=== PATIENT | female | born 1995 | race Caucasian/White ===

== ENCOUNTER 2016-10-30 17:28 | Emergency (ER) | payer BC, OTHER ==
[~2016-10-30] VITALS: Ht 157.5 cm; Wt 54.2 kg
[~2016-10-30 17:28] MED LIST: JNLF153028 PO; MAGNTAB10 PO; MULT-506 PO; MYCO180T PO; NRV/10 PO; ONDA4TAB46 PO; PENC1CRE4 TOP; SPT/ PO; TACR1CAP5 PO; TACR5CAP5 PO; TRIA0.1C20 TOP; TRIA1SPR2 NAE; ZTHM250 PO; [UNRECOGNIZED DRUG - CODE] MT
[2016-10-30 17:31] VITALS: Ht 157.5 cm; Wt 54.2 kg
[2016-10-30] MEDS ORDERED: SODIUM CHLORIDE 0.9% 1000ML 1,000 ML IV STA ×2 (18:06)
[2016-10-30] MEDS ORDERED: PROMETHAZINE HCL INJ 25 MG in SODIUM CHLORIDE 0.9% 50ML 50 ML IV STA (18:23)
[2016-10-30] MEDS: SODIUM CHLORIDE 0.9% 1000ML 1,000 ML IV STA ×2 (18:23→19:03)
[2016-10-30 18:35] LABS: BASO % 0.3 %; BASO ABS # 0.03 K/uL (0-0.2); COMPLETE YES; EOS % 0.1 %; HEMATOCRIT 40.5 % (37-47); IG% 0.2 %; LYMPH % 10.2 %; LYMPH ABS # 1.06 K/uL (1.2-3.4); MEAN CELL VOLUME 88.2 fL (80-100); MEAN CORPUSCULAR HEMOGLOBIN 31.4 pg (25-34); MEAN CORPUSCULAR HGB CONC 35.6 g/dl (32-36); MEAN PLATELET VOLUME 11.6 fL (7.4-10.4); MONO % 2.5 %; NEUT % 86.7 %; PLATELET COUNT 255 K/uL (130-400); RED BLOOD COUNT 4.59 M/uL (4.2-5.4); WHITE BLOOD COUNT 10.42 K/uL (4.8-10.8)
[2016-10-30 18:54] LABS: ALT/SGPT 15 U/L (12-78); AST/SGOT 10 U/L (15-37); BLOOD UREA NITROGEN 16 mg/dl (7-18); BUN/CREATININE RATIO 12.2 (10-20); CALCIUM 10.3 mg/dl (8.5-10.1); CARBON DIOXIDE 30 mmol/L (21-32); CHLORIDE 101 mmol/L (98-107); GLUCOSE 149 mg/dl (70-99); POTASSIUM 3.3 mmol/L (3.5-5.1); SODIUM 140 mmol/L (136-145)
[2016-10-30 18:56] LABS: ALKALINE PHOSPHATASE 73 U/L (45-117)
[2016-10-30 18:58] LABS: URINE APPEARANCE TURBID (CLEAR); URINE BILIRUBIN NEG (NEG); URINE COLOR YELLOW; URINE EPITHELIAL CELL AUTO >30 /lpf (0-5); URINE NITRITE NEG (NEG); URINE SPECIFIC GRAVITY 1.013 (1.000-1.030); UROBILINOGEN NEG (NEG)
[2016-10-30 19:07] VITALS: TEMP 37.4
[2016-10-30 19:14] LABS: MANUAL MICROSCOPIC REQUIRED? NO; REVIEW REQ? YES; SULFASALICYLIC ACID POS (NEG)
[2016-10-30 19:20] LABS: ZZUR CULT IF INDIC CLEAN CATCH YES
--- NOTE | 2016-10-30 19:27 | DIAGNOSTIC IMAGING REPORT ---
PA CHEST RADIOGRAPH AND UPRIGHT AND SUPINE AP RADIOGRAPHS OF THE ABDOMEN CLINICAL HISTORY: Vomiting and upper abdominal pain. History of renal transplant. COMPARISON STUDY: Abdominal series and chest radiograph June 10, 2010 and chest radiograph August 14, 2015. FINDINGS: Lung volumes are normal. No pneumothorax or pleural effusion is present. Cardiac size is normal. Mediastinal contours are normal. There is no evidence of pulmonary edema. There is no free air. Moderate distention of the stomach is noted. A single loop of dilated small bowel is shown on one image within the left lower quadrant. There are abdominal surgical clips. IMPRESSION: 1. No free air. 2. Single moderately dilated loop of small bowel shown on one image. This is nonspecific and a partial small bowel obstruction would be difficult to exclude. 3. No acute cardiopulmonary findings. 4. Mild to moderate distention of the stomach. Electronically signed by: Yanick Frazier M.D. 10/30/2016 7:25 PM Dictated Date/Time: 10/30/2016 7:22 PM
[2016-10-30 21:53] LABS: URINE APPEARANCE CLEAR (CLEAR); URINE BILIRUBIN NEG (NEG); URINE COLOR YELLOW; URINE NITRITE NEG (NEG); URINE SPECIFIC GRAVITY 1.001 (1.000-1.030); UROBILINOGEN NEG (NEG); ZZUR CULT IF INDIC CLEAN CATCH NO
[2016-10-30 21:54] LABS: MANUAL MICROSCOPIC REQUIRED? NO; REVIEW REQ? NO
[2016-10-30 23:09] VITALS: BP 111/67; PULSE 64; O2SAT 98
[2016-10-30] MEDS ORDERED: PHENERGAN 25MG HOMEPACK PO ONE (23:30)
--- NOTE | 2016-10-31 00:33 | EMERGENCY ROOM VISIT NOTE ---
History Report prepared by Lisseth: Yane Rawls Under the Supervision of: Dr. Raúl Sales M.D. First contact with patient: 18:05 Chief Complaint: VOMITING Stated Complaint: KIDNEY TRANSPLANT PT, VOMITING, DEHYDRATED Nursing Triage Summary: Patient states she has been vomitting for the last 3 days. Denies diarrhea. Patient has hx of kidney transplant. Patient unable to keep down any food or medications. C/o 6/10 abdominal pain. History of Present Illness The patient is a 21 year old female who presents to the Emergency Room via mother with complaints of worsening vomiting with onset three days ago. She rates her pain as a 5/10. The patient has a history of a kidney transplant. It was performed at [facility] in 2006. [facility] does not know about the patient's current illness. She has tried taking her daily medications, but she notes that she is throwing this up. Today, the patient has thrown up 6-7 times. She last vomited one hour ago.The patient has taken nausea medication, Ondansetron, without much relief. The patient also has central abdominal pain. She notes that the pain increased about six hours ago. She has had several headaches one day ago. Today, she has had some back pain, which she states is normal for her. She states that she has a slight sorethroat, but that this may be due to vomiting. The patient states she feels dehydrated. The patient states that a friend had the stomach bug one week ago. The patient and her mother noticed that the patient's legs were slightly swollen a few days before she started to vomit. Pt denies LOC, fevers, chills, diaphoresis, visual changes, neck pain, chest pain, breathing difficulties, melena, hematochezia, urinary symptoms, numbness, weakness, lymphadenopathy, rash, or other complaints. Source of History: patient Onset: 3 days ago Position: abdomen Symptom Intensity: 5/10 Quality: other (vomiting) Timing: worsening Associated Symptoms: + abdominal pain, + headache, + sorethroat Note: The patient's legs were swollen several days before she started to vomit. Review of Systems See HPI for pertinent positives and negatives. A total of ten systems were reviewed and were otherwise negative. Past Medical & Surgical Medical Problems: (1) Anemia of chronic renal failure (2) H/O amblyopia (3) History of chronic renal insufficiency (4) History of type IV renal tubular acidosis (5) HTN (hypertension) (6) Renal osteodystrophy (7) Secondary hyperparathyroidism (8) Selective deficiency of IgG (9) Short stature Surgical Problems: (1) S/p revision horizontal eye muscle (2) S/P tonsillectomy and adenoidectomy Family History Asthma GRANDMOTHER Diabetes mellitus FH: cancer FH: gallbladder disease FH: heart disease GRANDFATHER Hypertension GRANDFATHER Kidney disease Kidney stones Social History Smoking Status: Never Smoker Alcohol Use: none Drug Use: none Marital Status: single Housing Status: lives with family Occupation Status: [employer] student Current/Historical Medications Scheduled Amlodipine Besylate (Amlodipine Besylate), 10 MG PO DAILY Chlorhexidine Gluconate (Mouth (Peridex Oral Soln), Unknown Dose MT BID Magnesium Oxide (Mg Supplement (Mag-200), 200 MG PO DAILY Multivitamin (Multivitamin), 1 TAB PO DAILY Mycophenolate Sodium (Myfortic), 360 MG PO BID Tacrolimus (Prograf), 3 MG PO BID Tacrolimus (Prograf), 5 MG PO BID Triamcinolone Acetonide (Nasal (Nasacort-Aq Nasal Inh), 2 SPRAYS JUDIE DAILY Trimethoprim/Sulfamethoxazole (Bactrim 400MG/80MG), 1 TAB PO DAILY Scheduled PRN Ondansetron Hcl (Zofran), 4 MG PO Q8 PRN for Nausea Penciclovir (Denavir), 1 APPLN TOP Q2H PRN for cold sores Triamcinolone Acet 0.1% (Aristocort 0.1%), 1 APPLN TOP BID PRN for skin impairment Allergies Coded Allergies: Dust Mite Extract (Unverified Allergy, Mild, ., 10/30/16) Morphine (Unverified Adverse Reaction, Unknown, PSYCHOSIS, 10/30/16) Physical Exam Vital Signs Date Time Temp Pulse Resp B/P Pulse Ox O2 Delivery O2 Flow Rate FiO2 10/30/16 23:09 64 19 111/67 98 Room Air 10/30/16 22:18 95 10/30/16 22:00 94 21 134/75 94 Room Air 10/30/16 21:43 77 17 120/76 96 Room Air 10/30/16 20:00 82 16 140/97 94 Room Air 10/30/16 19:07 37.4 85 21 129/89 97 Room Air 10/30/16 18:19 88 10/30/16 17:31 36.7 90 20 133/95 95 Room Air Physical Exam GENERAL: Awake, alert, well-appearing, in no distress HENT: Normocephalic, atraumatic. Oropharynx unremarkable. EYES: Normal conjunctiva. Sclera non-icteric. NECK: Supple. No nuchal rigidity. FROM. No JVD. RESPIRATORY: Clear to auscultation. CARDIAC: Regular rate, normal rhythm. Extremities warm and well perfused. Pulses equal. ABDOMEN: Soft, non-distended. Mild epigastric discomfort to palpation. No rebound or guarding. No masses. RECTAL: Deferred. MUSCULOSKELETAL: Chest examination reveals no tenderness. The back is symmetrical on inspection without obvious abnormality. There is no CVA tenderness to palpation. No joint edema. LOWER EXTREMITIES: Calves are equal size bilaterally and non-tender. No edema. No discoloration. NEURO: Normal sensorium. No sensory or motor deficits noted. SKIN: No rash or jaundice noted. Medical Decision & Procedures ER Provider Diagnostic Interpretation: X-ray: Per my interpretation, radiologist review. PA CHEST RADIOGRAPH AND UPRIGHT AND SUPINE AP RADIOGRAPHS OF THE ABDOMEN CLINICAL HISTORY: Vomiting and upper abdominal pain. History of renal transplant. COMPARISON STUDY: Abdominal series and chest radiograph June 10, 2010 and chest radiograph August 14, 2015. FINDINGS: Lung volumes are normal. No pneumothorax or pleural effusion is present. Cardiac size is normal. Mediastinal contours are normal. There is no evidence of pulmonary edema. There is no free air. Moderate distention of the stomach is noted. A single loop of dilated small bowel is shown on one image within the left lower quadrant. There are abdominal surgical clips. IMPRESSION: 1. No free air. 2. Single moderately dilated loop of small bowel shown on one image. This is nonspecific and a partial small bowel obstruction would be difficult to exclude. 3. No acute cardiopulmonary findings. 4. Mild to moderate distention of the stomach. Electronically signed by: Yanick Frazier M.D. 10/30/2016 7:25 PM Dictated Date/Time: 10/30/2016 7:22 PM Laboratory Results 10/30/16 17:56 Red Blood Count 4.59, Mean Corpuscular Volume 88.2, Mean Corpuscular Hemoglobin 31.4, Mean Corpuscular Hemoglobin Concent 35.6, Mean Platelet Volume 11.6, Neutrophils (%) (Auto) 86.7, Lymphocytes (%) (Auto) 10.2, Monocytes (%) (Auto) 2.5, Eosinophils (%) (Auto) 0.1, Basophils (%) (Auto) 0.3, Neutrophils # (Auto) 9.04, Lymphocytes # (Auto) 1.06, Monocytes # (Auto) 0.26, Eosinophils # (Auto) 0.01, Basophils # (Auto) 0.03 10/30/16 17:56 Test 10/30/16 17:56 10/30/16 18:20 White Blood Count 10.42 K/uL (4.8-10.8) Red Blood Count 4.59 M/uL (4.2-5.4) Hemoglobin 14.4 g/dL (12.0-16.0) Hematocrit 40.5 % (37-47) Mean Corpuscular Volume 88.2 fL (80-100) Mean Corpuscular Hemoglobin 31.4 pg (25-34) Mean Corpuscular Hemoglobin Concent 35.6 g/dl (32-36) Platelet Count 255 K/uL (130-400) Mean Platelet Volume 11.6 fL (7.4-10.4) Neutrophils (%) (Auto) 86.7 % Lymphocytes (%) (Auto) 10.2 % Monocytes (%) (Auto) 2.5 % Eosinophils (%) (Auto) 0.1 % Basophils (%) (Auto) 0.3 % Neutrophils # (Auto) 9.04 K/uL (1.4-6.5) Lymphocytes # (Auto) 1.06 K/uL (1.2-3.4) Monocytes # (Auto) 0.26 K/uL (0.11-0.59) Eosinophils # (Auto) 0.01 K/uL (0-0.5) Basophils # (Auto) 0.03 K/uL (0-0.2) RDW Standard Deviation 39.6 fL (36.4-46.3) RDW Coefficient of Variation 12.4 % (11.5-14.5) Immature Granulocyte % (Auto) 0.2 % Immature Granulocyte # (Auto) 0.02 K/uL (0.00-0.02) Anion Gap 9.0 mmol/L (3-11) Est Creatinine Clear Calc Drug Dose 54.6 ml/min Estimated GFR () 68.4 Estimated GFR (Non- 59.0 BUN/Creatinine Ratio 12.2 (10-20) Calcium Level 10.3 mg/dl (8.5-10.1) Total Bilirubin 0.5 mg/dl (0.2-1) Direct Bilirubin < 0.1 mg/dl (0-0.2) Aspartate Amino Transf (AST/SGOT) 10 U/L (15-37) Alanine Aminotransferase (ALT/SGPT) 15 U/L (12-78) Alkaline Phosphatase 73 U/L (45-117) Total Protein 7.7 gm/dl (6.4-8.2) Albumin 4.5 gm/dl (3.4-5.0) Lipase 100 U/L (73-393) Urine Color YELLOW Urine Appearance TURBID (CLEAR) Urine pH 8.0 (4.5-7.5) Urine Specific [place] 1.013 (1.000-1.030) Urine Protein 2+ (NEG) Urine Glucose (UA) NEG (NEG) Urine Ketones NEG (NEG) Urine Occult Blood TRACE (NEG) Urine Nitrite NEG (NEG) Urine Bilirubin NEG (NEG) Urine Urobilinogen NEG (NEG) Urine Leukocyte Esterase TRACE (NEG) Urine WBC (Auto) 5-10 /hpf (0-5) Urine RBC (Auto) 0-4 /hpf (0-4) Urine Hyaline Casts (Auto) 5-10 /lpf (0-5) Urine Epithelial Cells (Auto) >30 /lpf (0-5) Urine Bacteria (Auto) 2+ (NEG) Urine Crystals (NONE PRSENT) Urine Test NEG (NEG) Laboratory results reviewed by me Medications Administered Medications (Trade) Dose Ordered Sig/Victor M Route Start Time Stop Time Status Last Admin Dose Admin Sodium Chloride 1,000 ml @ 125 mls/hr Q8H STAT IV 10/30/16 18:06 10/30/16 23:38 DC 10/30/16 20:59 125 MLS/HR Sodium Chloride 1,000 ml @ 999 mls/hr Q1H1M STAT IV 10/30/16 18:06 10/30/16 19:06 DC 10/30/16 18:06 999 MLS/HR Sodium Chloride 1,000 ml @ 999 mls/hr Q1H1M STAT IV 10/30/16 18:23 10/30/16 19:23 DC 10/30/16 19:03 999 MLS/HR Promethazine HCl/ Sodium Chloride (Phenergan Inj/ Nss 50ml) 51 ml @ 204 mls/hr NOW STAT IV 10/30/16 18:23 10/30/16 18:37 DC 10/30/16 19:02 204 MLS/HR Promethazine HCl (Phenergan 25MG Home Pack) 1 homepack UD ONCE PO 10/30/16 23:30 10/30/16 23:31 DC 10/30/16 23:25 1 [facility] ED Course 1806: Sodium Chloride 1000 ml @ 999 mls/hr IV, Sodium Chloride 1000 ml @ 125 mls /hr IV 1816: The patient was evaluated in room A2. A complete history and physical exam was performed. 1822: Promethazine HCl 25 mg/ Sodium Chloride 51 ml @ 204 mls/ hr IV, Sodium Chloride 1000 ml @ 999 mls/hr IV 0: I reevaluated the patient; she is feeling better and will now try to keep some liquids down. 2116: I reevaluated the patient; she is feeling much better. Her repeat abdominal exam was better and she tolerated fluids well. 3: I reevaluated the patient; she is feeling much better. She tolerated liquids and gram crackers. Her repeat abdominal exam was benign. Discussed results and discharge instructions with the patient and her mother. They verbalized understanding and agreement. The patient is ready for discharge. 2330: Phenergan 25 mg 1 homepack PO Medical Decision Triage Nursing notes reviewed. The patient's presentation and history were concerning for vomiting and renal transplant. Etiologies such as gastroenteritis, food borne illness, infections, obstruction , pancreatitis, appendicitis, diverticulitis, inflammatory bowel disease, GI bleed, biliary pathology, toxicologic as well as others were entertained. The patient was evaluated. She had some mild abdominal discomfort but no rebound or guarding. She had IV fluids administered. She was given IV Phenergan and she has tried Zofran without results. The patient was reassessed and was feeling much better. She had an unremarkable CBC, chemistry panel, LFTs and lipase. test was negative. Urinalysis initially was somewhat concerning however this was not a clean catch specimen. The patient was instructed on a proper specimen and this was repeated. This was without signs of infection. The patient received saline hydration. She was feeling much better and repeat abdominal examination was benign. X-ray showed a questionable dilated loop of bowel however given her history of contact with a person having gastroenteritis type symptoms and her 3 days of vomiting with resolution of pain here obstruction does not seem to be an issue. The patient is not distended. She does not have any remaining tenderness. She did not receive any pain medication to cover this up. She was tried on oral fluids and crackers. She did very well with this. She was reassessed and was doing great. I discussed conservative management. The patient will come back to emergency department if she has any issues. She will follow-up with transplant first thing this week. I gave my usual and customary discussion regarding this issue. By the evaluation outlined above other emergent etiologies such as those listed in the differential, as well as others, were deemed relatively unlikely. The patient and mother were formed about the findings as listed above. All questions were answered and they were pleased with the treatment. Return instructions were outlined and the patient was discharged in stable condition. The patient was referred to her primary team for follow-up Tuesday for a recheck of the current condition. The chart was completed utilizing [employer] Speech voice recognition software. Grammatical errors, random word insertions, pronoun errors, and incomplete sentences are an occasional consequence of this system due to software limitations, ambient noise, and hardware issues. Any formal questions or concerns about the content, text, or information contained within the body of this dictation should be directly addressed to the physician for clarification. Impression Primary Impression: Vomiting Additional Impression: Status post kidney transplant Scribe Attestation The scribe's documentation has been prepared under my direction and personally reviewed by me in its entirety. I confirm that the note above accurately reflects all work, treatment, procedures, and medical decision making performed by me. Departure Information Dispostion Home / Self-Care Referrals Gio Valle M.D. (PCP) Forms HOME CARE DOCUMENTATION FORM, IMPORTANT VISIT INFORMATION Patient Instructions My [facility] Additional Instructions VOMITING INSTRUCTIONS: DO NOT drive, drink alcohol, operate machinery, or perform dangerous activities today. You were given medications in the ER that can affect your ability to safely function or operate a vehicle. Phenergan(promethazine) tablets 25mg: Take one every six hours as needed for nausea. Avoid alcohol, operating machinery or dangerous equipment, working on ladders or roofs, DRIVING, or situations where being under the influence may be dangerous. Acetaminophen(Tylenol) may be used for fever or pain. Use 1000mg every six hours as needed. Avoid using more than 4000mg in a 24 hour period. Rest and drink plenty of fluids as tolerated. Slow sips of water or sports drinks are recommended instead of large amounts all at once. Continue current medications. Once your stomach is settled start with a clear liquid diet (jello, soup broth, etc.) and then advance as tolerated. You should avoid full, heavy meals for about 24 hrs from the time your symptoms resolved. Return to the ER for persistent vomiting, fevers, abdominal pain, chest pains, difficulty breathing, black or bloody stools, worsening of your condition, or as needed. Follow up with your primary physician in 2-3 days for a recheck of your current condition Problem Qualifiers
== END 2016-10-30 23:25 | disposition home or self-care (01) ==
LOC: C.EDB 17:30 → C.EDA 23:25
DX: R11.2 Nausea with vomiting, unspecified (principal); Z94.0 Kidney transplant status; D63.1 Anemia in chronic kidney disease; I12.9 Hypertensive chronic kidney disease with stage 1 through stage 4 chronic kidney disease, or unspecified chronic kidney disease; N18.9 Chronic kidney disease, unspecified; N25.0 Renal osteodystrophy; N25.81 Secondary hyperparathyroidism of renal origin; D80.3 Selective deficiency of immunoglobulin G [IgG] subclasses; Z82.5 Family history of asthma and other chronic lower respiratory diseases; Z83.3 Family history of diabetes mellitus; Z82.49 Family history of ischemic heart disease and other diseases of the circulatory system; Z79.899 Other long term (current) drug therapy

== ENCOUNTER 2017-11-06 17:59 | Inpatient (IN) | payer OTHER ==
[~2017-11-06] VITALS: Ht 157.5 cm; Wt 52.4 kg
[~2017-11-06 17:59] MED LIST changes: -JNLF153028 PO; +PENC1CRE33 TOP; -PENC1CRE4 TOP; -ZTHM250 PO
[2017-11-06] MEDS ORDERED: TRMCR130WC TOP (18:48)
[2017-11-06] MEDS ORDERED: TACR5CAP PO (18:48)
[2017-11-06] MEDS ORDERED: TACR1CAP PO (18:48)
[2017-11-06] MEDS ORDERED: TRIA1SPR4 NAE (18:48)
[2017-11-06] MEDS ORDERED: BCPILLS PO (18:49)
--- NOTE | 2017-11-06 18:50 | EMERGENCY ROOM VISIT NOTE ---
History Report prepared by Lisseth: Efrain Francisco Under the Supervision of: Pamela PabloO. First contact with patient: 18:17 Chief Complaint: FLU LIKE SX Stated Complaint: FEVER,CHILLS,COUGH,ACHE, TRANSPLANT PATIENT History of Present Illness The patient is a 22 year old female who presents to the Emergency Room with complaints of worsening flu symptoms for the past 3 days. She states that she had a productive cough for three days, and then yesterday she had body aches, fevers up to 102.7, chills, headaches, sore throat, nausea, and she had some abdominal pain last night. The patient states that she was around some sick contacts this week with the flu and RSV. The patient took Tylenol this morning with no relief. The patient denies any vomiting, diarrhea, urinary difficulties , ear pain, and any abnormal rash, though she had hives yesterday from stress which is normal. The patient states that she got the flu shot this year. The patient is a kidney transplant patient in 2006, and she is currently on Prograf and has had no complications recently. Source of History: patient Onset: three days ago Position: other (global) Quality: other (flu like symptoms) Timing: worsening Associated Symptoms: + fevers, + chills, + headache, + sorethroat, + cough, + nausea, + abdominal pain, No vomiting, No diarrhea, No rash Note: Associated symptoms: Body aches Review of Systems See HPI for pertinent positives & negatives. A total of 10 systems reviewed and were otherwise negative. Past Medical & Surgical Medical Problems: (1) Abnormal blood electrolyte level (2) Anemia of chronic renal failure (3) H/O amblyopia (4) History of chronic renal insufficiency (5) History of type IV renal tubular acidosis (6) HTN (hypertension) (7) Renal osteodystrophy (8) Secondary hyperparathyroidism (9) Selective deficiency of IgG (10) Short stature Surgical Problems: (1) Kidney transplant status (2) S/p revision horizontal eye muscle (3) S/P tonsillectomy and adenoidectomy Family History Asthma GRANDMOTHER Diabetes mellitus FH: cancer FH: gallbladder disease FH: heart disease GRANDFATHER Hypertension GRANDFATHER Kidney disease Kidney stones Social History Smoking Status: Never Smoker Alcohol Use: none Drug Use: none Marital Status: single Housing Status: lives with family Occupation Status: [employer] student Current/Historical Medications Scheduled Amlodipine Besylate (Amlodipine Besylate), 10 MG PO DAILY Control Pills ( Control Pills), 1 TAB PO DAILY Magnesium Oxide (Mg Supplement (Mag-200), 200 MG PO DAILY Multivitamin (Multivitamin), 1 TAB PO DAILY Mycophenolate Sodium (Myfortic), 360 MG PO BID Oseltamivir Phosphate (Tamiflu), 75 MG PO BID Tacrolimus (Prograf), 5 MG PO BID Tacrolimus (Prograf), 3 MG PO BID Triamcinolone Acetonide (Nasal (Nasacort Allergy 24Hr), 2 SPRAYS JUDIE DAILY Trimethoprim/Sulfamethoxazole (Bactrim 400MG/80MG), 1 TAB PO DAILY Scheduled PRN Chlorhexidine Gluconate (Mouth (Peridex Oral Soln), Unknown Dose MT BID PRN for DIRECTED Guaifenesin (Organ-I Nr), 200 MG PO Q8 PRN for cough Ondansetron Hcl (Zofran), 4 MG PO Q8 PRN for Nausea Penciclovir (Denavir), 1 APPLN TOP Q2H PRN for cold sores Triamcinolone Acet (Aristocort 0.1%), 1 APPLN TOP BID PRN for SKIN IMPAIRMENT Allergies Coded Allergies: Dust Mite Extract (Verified Allergy, Mild, ., 11/06/17) Morphine (Verified Adverse Reaction, Unknown, PSYCHOSIS, 11/06/17) Physical Exam Vital Signs Date Time Temp Pulse Resp B/P (MAP) Pulse Ox O2 Delivery O2 Flow Rate FiO2 11/06/17 23:46 94 18 125/79 95 Room Air 11/06/17 22:08 37.5 93 18 134/91 95 Room Air 11/06/17 20:12 38.8 127 18 142/99 97 Room Air 11/06/17 18:07 39.3 136 18 142/95 99 Room Air Physical Exam GENERAL: alert, ill-appearing, well nourished, no distress, non-toxic EYE EXAM: normal conjunctiva, PERRL and EOM's grossly intact OROPHARYNX: no exudate, no erythema, lips, buccal mucosa, and tongue normal and mucous membranes are dry NECK: supple, no nuchal rigidity, no adenopathy, non-tender, FROM LUNGS: Clear to auscultation. Normal chest wall mechanics, no w/r/r HEART: no murmurs, S1 normal and S2 normal ABDOMEN: abdomen soft, non-tender, normo-active bowel sounds, no masses, no rebound or guarding. BACK: Back is symmetrical on inspection and there is no deformity, no midline tenderness, no CVA tenderness. SKIN: no rashes and no bruising UPPER EXTREMITIES: upper extremities are grossly normal. FROM, nml pulses. LOWER EXTREMITIES: No pitting edema. FROM, nml pulses. NEURO EXAM: Normal sensorium, cranial nerves II-XII grossly intact, normal speech, no gross weakness of arms, no gross weakness of legs. Gross sensation intact. Medical Decision & Procedures ER Provider Diagnostic Interpretation: Radiology results have been interpreted by the radiologist and reviewed by me. CHEST ONE VIEW PORTABLE HISTORY: cough, fever COMPARISON: Chest 10/30/2016. FINDINGS: The lungs are clear. Cardiac silhouette is normal in size. No pleural effusions. No pneumothorax. IMPRESSION: No acute process. Electronically signed by: Davin Lorenzo M.D. 11/06/2017 7:17 PM Dictated Date/Time: 11/06/2017 7:15 PM Laboratory Results Test 11/06/17 18:57 11/06/17 19:15 11/06/17 19:29 11/06/17 20:55 Influenza Type A Antigen Neg for Influ A (NEG) Influenza Type B Antigen Neg for Influ B (NEG) Immature Granulocyte % (Auto) 0.2 % White Blood Count 9.83 K/uL (4.8-10.8) Red Blood Count 4.33 M/uL (4.2-5.4) Hemoglobin 13.7 g/dL (12.0-16.0) Hematocrit 39.3 % (37-47) Mean Corpuscular Volume 90.8 fL (80-100) Mean Corpuscular Hemoglobin 31.6 pg (25-34) Mean Corpuscular Hemoglobin Concent 34.9 g/dl (32-36) Platelet Count 240 K/uL (130-400) Mean Platelet Volume 10.6 fL (7.4-10.4) Neutrophils (%) (Auto) 84.9 % Lymphocytes (%) (Auto) 8.0 % Monocytes (%) (Auto) 6.5 % Eosinophils (%) (Auto) 0.1 % Basophils (%) (Auto) 0.3 % Neutrophils # (Auto) 8.34 K/uL (1.4-6.5) Lymphocytes # (Auto) 0.79 K/uL (1.2-3.4) Monocytes # (Auto) 0.64 K/uL (0.11-0.59) Eosinophils # (Auto) 0.01 K/uL (0-0.5) Basophils # (Auto) 0.03 K/uL (0-0.2) Immature Granulocyte # (Auto) 0.02 K/uL (0.00-0.02) Total Bilirubin 0.5 mg/dl (0.2-1) Aspartate Amino Transf (AST/SGOT) 12 U/L (15-37) Alanine Aminotransferase (ALT/SGPT) 18 U/L (12-78) Alkaline Phosphatase 65 U/L (45-117) Total Protein 7.8 gm/dl (6.4-8.2) Globulin 3.6 gm/dl (2.5-4.0) Albumin/Globulin Ratio 1.2 (0.9-2) Human Chorionic Gonadotropin, Qual NEG (NEG) Bedside Lactic Acid Venous 1.96 mmol/L (0.90-1.70) Urine Color YELLOW Urine Appearance CLEAR (CLEAR) Urine pH 8.0 (4.5-7.5) Urine Specific Counce 1.008 (1.000-1.030) Urine Protein NEG (NEG) Urine Glucose (UA) NEG (NEG) Urine Ketones NEG (NEG) Urine Occult Blood 3+ (NEG) Urine Nitrite NEG (NEG) Urine Bilirubin NEG (NEG) Urine Urobilinogen NEG (NEG) Urine Leukocyte Esterase TRACE (NEG) Urine WBC (Auto) 1-5 /hpf (0-5) Urine RBC (Auto) >30 /hpf (0-4) Urine Hyaline Casts (Auto) 1-5 /lpf (0-5) Urine Epithelial Cells (Auto) 20-30 /lpf (0-5) Urine Bacteria (Auto) NEG (NEG) Laboratory results per my review. Medications Administered Medications (Trade) Dose Ordered Sig/Victor M Route Start Time Stop Time Status Last Admin Dose Admin Sodium Chloride 1,000 ml @ 999 mls/hr Q1H1M STAT IV 11/06/17 18:51 11/06/17 19:51 DC 11/06/17 19:17 999 MLS/HR Acetaminophen (Tylenol Tab) 1,000 mg NOW STAT PO 11/06/17 18:51 11/06/17 18:53 DC 11/06/17 19:17 1,000 MG Ondansetron HCl (Zofran Inj) 4 mg NOW STAT IV 11/06/17 18:51 11/06/17 18:53 DC 11/06/17 19:17 4 MG Sodium Chloride 1,000 ml @ 999 mls/hr Q1H1M STAT IV 11/06/17 21:20 11/06/17 22:20 DC 11/06/17 21:54 999 MLS/HR Potassium Phosphate 15 mmol/ Sodium Chloride 255 ml @ 88 mls/hr NOW STAT IV 11/06/17 21:32 11/07/17 00:25 DC 11/06/17 22:45 88 MLS/HR Magnesium Sulfate 2 gm/Dextrose 104 ml @ 104 mls/hr NOW STAT IV 11/06/17 21:34 11/06/17 22:33 DC 11/06/17 21:53 104 MLS/HR ECG Indication: other (flu like symptoms) Rate (beats per minute): 123 Rhythm: sinus tachycardia Findings: T-wave inversion (isolated in V3), no acute ischemic change, other ( Baseline arifact inferiorly) Change: EKG: Patient's electrocardiogram per my interpretation. ED Course 1816: The patient was evaluated in room C7. A complete history and physical exam was performed. 1850: Zofran 4mg IV, Tylenol Tab 1000mg PO 2118: There has been no return call from the kidney specialist yet after two attempts. I discussed electrolyte replacement with the pharmacist. 2119: Sodium Chloride 1000 ml @ 999 mls/hr IV 2126: I discussed the patients case with Dr. Randall Nephrology, and she agrees with the plan for electrolyte replacement. If the patient has a persistent fever and tachycardia, or is unable to tolerate po then she recommends observing the patient and they will consult. She thinks that it is unlikely to be an opportunistic infection. She is going to review the chart at home, and it she has any additional recommendations, then she will call back. 2131: Potassium Phosphate 15 mmol/ Sodium Chloride 255ml @ 88mls/hr IV 2133: Magnesium Sulfate 2gm/ Dextrose 104ml @ 104mls/hr IV 2140: I reevaluated the patient, and I updated her on the treatment plan. 2316: Pt still ill appearing. Receiving electrolyte replacements. Only keeping down sips of po. 2333: Discussed with Dr. White for admission. Medical Decision Differential diagnosis: Etiologies such as viral syndrome, otitis, pharyngitis, pneumonia, influenza, meningitis, urinary tract infection, sepsis, bacteremia, as well as others were entertained. Pt mildly ill appearing here, however slightly improved with IVF. Fever and tachycardia improved. Tachycardia likely from fever and dehydration. Given hx of transplant and persistent sx, need for continued electrolyte replacement and monitoring of renal functioning, discussed with hospitalist for additional evaluation and treatment. Doubt bacteremia/sepsis. Doubt acute renal failure or transplant rejection. Medication Reconcilliation Current Medication List: was personally reviewed by me Consults Time Called: 2038 Consulting Physician: Dr. Randall - Nephrology Returned Call: [phone] I discussed the patients case with Dr. Randall Nephrology, and she agrees with the plan for electrolyte replacement. If the patient has a persistent fever and tachycardia, then she will observe the patient as a consult. She thinks that it is unlikely to be an opportunistic infection. She is going to review the chart at home, and it she has any additional recommendations, then she will call back. Impression Primary Impression: Influenza-like symptoms Additional Impressions: Hypokalemia Hypomagnesemia Hypophosphatemia Dehydration Status post kidney transplant Scribe Attestation The scribe's documentation has been prepared under my direction and personally reviewed by me in its entirety. I confirm that the note above accurately reflects all work, treatment, procedures, and medical decision making performed by me. Departure Information Prescriptions Guaifenesin (Organ-I Nr) 200 Mg Tab 200 MG PO Q8 Y for cough for 5 Days, #15 TAB Prov: Niko Blanchard M.D. 11/09/17 Oseltamivir Phosphate (Tamiflu) 75 Mg Cap 75 MG PO BID, #5 CAP Prov: Niko Blanchard M.D. 11/09/17 Referrals Gio Valle M.D. (PCP) Patient Instructions My [facility] Problem Qualifiers
[2017-11-06] MEDS ORDERED: ONDANSETRON INJ 2 MG/ML 2 ML VIAL IV STA (18:51)
[2017-11-06] MEDS ORDERED: SODIUM CHLORIDE 0.9% 1000ML 1,000 ML IV STA ×2 (18:51→21:20)
[2017-11-06] MEDS ORDERED: ACETAMINOPHEN 500 MG TAB PO STA (18:51)
--- NOTE | 2017-11-06 19:18 | DIAGNOSTIC IMAGING REPORT ---
CHEST ONE VIEW PORTABLE HISTORY: cough, fever COMPARISON: Chest 10/30/2016. FINDINGS: The lungs are clear. Cardiac silhouette is normal in size. No pleural effusions. No pneumothorax. IMPRESSION: No acute process. Electronically signed by: Davin Lorenzo M.D. 11/06/2017 7:17 PM Dictated Date/Time: 11/06/2017 7:15 PM
[2017-11-06 19:40] LABS: BASO % 0.3 %; BASO ABS # 0.03 K/uL (0-0.2); EOS % 0.1 %; EOS ABS # 0.01 K/uL (0-0.5); HEMATOCRIT 39.3 % (37-47); HEMOGLOBIN 13.7 g/dL (12.0-16.0); IG# 0.02 K/uL (0.00-0.02); LYMPH ABS # 0.79 K/uL (1.2-3.4); MEAN CELL VOLUME 90.8 fL (80-100); MEAN CORPUSCULAR HEMOGLOBIN 31.6 pg (25-34); MEAN CORPUSCULAR HGB CONC 34.9 g/dl (32-36); MEAN PLATELET VOLUME 10.6 fL (7.4-10.4); MONO % 6.5 %; MONO ABS # 0.64 K/uL (0.11-0.59); NEUT % 84.9 %; NEUT ABS # 8.34 K/uL (1.4-6.5); PLATELET COUNT 240 K/uL (130-400); RED CELL DISTRIBUTION WIDTH CV 13.2 % (11.5-14.5); RED CELL DISTRIBUTION WIDTH SD 43.6 fL (36.4-46.3); WHITE BLOOD COUNT 9.83 K/uL (4.8-10.8)
[2017-11-06 19:54] LABS: ALBUMIN 4.2 gm/dl (3.4-5.0); CALCIUM 9.3 mg/dl (8.5-10.1); CREATININE 1.24 mg/dl (0.60-1.20); POTASSIUM 3.1 mmol/L (3.5-5.1)
[2017-11-06 20:09] LABS: PHOSPHORUS 1.2 mg/dl (2.5-4.9); TOTAL PROTEIN 7.8 gm/dl (6.4-8.2)
[2017-11-06 20:22] LABS: INFLUENZA B ANTIGEN Neg for Influ B (NEG)
[2017-11-06] MEDS ORDERED: POTASSIUM PHOS 3 MMOL/1 ML INFUSION IV STA (21:20)
[2017-11-06] MEDS ORDERED: MAGNESIUM SULFATE 1GM / D5W 2 GM in PREMIXED IN D5W 100 ML IV STA (21:20)
[2017-11-06] MEDS ORDERED: POTASSIUM PHOSPHATE INJ 15 MMOL in SODIUM CHLORIDE 0.9% 250ML 250 ML IV STA (21:32)
[2017-11-06] MEDS ORDERED: MAG SULFATE IV STA (21:34)
[2017-11-06] MEDS ORDERED: DEXTROSE 5% IV STA (21:34)
[2017-11-07] VITALS (8 sets, daily range): BP systolic 125–217; BP diastolic 77–98; PULSE 62–109; TEMP 36.7–37.5; O2SAT 92–99; Ht 157.5 cm; Wt 52.4 kg
[2017-11-07] MEDS ORDERED: ONDANSETRON INJ 2 MG/ML 2 ML VIAL IV PRN
[2017-11-07] MEDS ORDERED: TRIAMCINOLONE ACET 0.1% CR 15 GM TUBE EXT PRN (00:15)
[2017-11-07] MEDS ORDERED: ONDANSETRON 4 MG TAB PO PRN (00:15)
[2017-11-07 06:39] LABS: HEMATOCRIT 37.8 % (37-47); HEMOGLOBIN 13.3 g/dL (12.0-16.0); MEAN CELL VOLUME 90.6 fL (80-100); MEAN CORPUSCULAR HEMOGLOBIN 31.9 pg (25-34); MEAN CORPUSCULAR HGB CONC 35.2 g/dl (32-36); MEAN PLATELET VOLUME 10.5 fL (7.4-10.4); PLATELET COUNT 197 K/uL (130-400); RED CELL DISTRIBUTION WIDTH CV 13.3 % (11.5-14.5); RED CELL DISTRIBUTION WIDTH SD 44.2 fL (36.4-46.3); WHITE BLOOD COUNT 5.78 K/uL (4.8-10.8)
[2017-11-07 07:15] LABS: CALCIUM 8.5 mg/dl (8.5-10.1); CREATININE 0.81 mg/dl (0.60-1.20); PHOSPHORUS 2.6 mg/dl (2.5-4.9); POTASSIUM 2.9 mmol/L (3.5-5.1)
[2017-11-07] MEDS: SULFAMETHOXAZOLE/TRIMETHOPRIM 400/80MG TAB PO SCH (08:02)
[2017-11-07] MEDS: MULTIVITAMIN TAB PO SCH (08:02)
[2017-11-07] MEDS: AMLODIPINE BESYLATE 5 MG TAB PO SCH (08:02)
[2017-11-07] MEDS: TACROLIMUS 1 MG CAP PO SCH ×2 (08:02→21:28)
[2017-11-07] MEDS: BENZONATATE 100MG CAP PO SCH ×3 (08:03→21:28)
[2017-11-07] MEDS: MYCOPHENOLATE SODIUM 180 MG TAB PO SCH ×2 (08:03→21:28)
[2017-11-07] MEDS: MAGNESIUM OXIDE 400 MG TAB PO SCH (08:03)
[2017-11-07] MEDS: TRIAMCINOLONE ACET NASAL SPRAY 10.8ML BTL NAE SCH (08:04)
[2017-11-07] MEDS: HEPARIN SOD 5000 UNIT/0.5 ML CARP SQ SCH ×3 (08:06→21:37)
--- NOTE | 2017-11-07 08:06 | HISTORY & PHYSICAL EXAMINATION ---
DATE OF ADMISSION: 11/06/2017 PRIMARY CARE PHYSICIAN: Dr. Valle. CHIEF COMPLAINT: Flu-like symptoms for the last 3 days with generalized weakness and nausea and fever. HISTORY OF PRESENT COMPLAINT: She is a 22-year-old female with significant past medical history of chronic renal insufficiency, status post living-related donor renal transplant on the right side, history of headache, amblyopia, anorexia, renal osteodystrophy, hyperparathyroidism, type 4 renal tubular acidosis, history of selective immunoglobulin deficiency and hypertension, apparently has been complaining of flu-like symptoms with cough, runny nose, fever, chills for the last 3 days. The condition worsened as of yesterday with nausea but no vomiting and/or diarrhea. She was feeling generally very weak and lethargic and dizzy, that is the reason she was brought into the Emergency Room for further evaluation. Does not have any increasing shortness of breath, does not have any problem with urine, does not have any swelling of the legs and does not have any weakness involving any side in particular. In the Emergency Room, she looked flushed and febrile, 39.3 degrees Fahrenheit, hemodynamically stable otherwise, and her electrolytes came back fairly abnormal. From that point, she was advised for admission to the hospital. Her flu tests were negative. PAST MEDICAL HISTORY: Significant for chronic renal insufficiency, history of living-related donor renal transplant on the right, history of chronic headache, amblyopia, anorexia, slow transit constipation, nephrolithiasis, renal osteodystrophy, hyperparathyroidism, type 4 renal tubular acidosis, selected immunoglobulin deficiency, allergic rhinitis and hypertension. PAST SURGICAL HISTORY: Significant for right renal transplant, tonsillectomy as a child and revised horizontal eye muscle surgery. FAMILY HISTORY: Maternal grandmother had asthma and paternal grandfather had ischemic heart disease. Nothing about her dad. SOCIAL HISTORY: She is alone, she does not have any children. She lives with her mom. She does not drink and does not smoke and she has been reasonably ambulant. ALLERGIES: SHE IS ALLERGIC TO DUST AND ALSO MORPHINE CAUSES PSYCHOSIS. MEDICATIONS: She has been on multivitamin tablet 1 tablet daily, Zofran 4 mg q. 8 hourly as needed, Prograf 3 mg b.i.d., Prograf 5 mg p.o. b.i.d., Aristocort cream as directed, Nasacort 2 sprays each nostril daily, Bactrim 1 tablet daily, amlodipine 10 mg daily, control pill as directed, magnesium oxide 200 mg daily, Myfortic 180-mg tablet 360 mg twice daily and Denavir 1 application q. 2 hours for cold sores. REVIEW OF SYSTEMS: Other system review unremarkable except those mentioned in history of present complaint. PHYSICAL EXAMINATION: GENERAL: On examination in the Emergency Room, she was having some aches and pains and she looked flushed. VITAL SIGNS: Temperature 39.3, pulse was 94, blood pressure 125/79, saturation 95% on room air. HEENT: Unremarkable. NECK: Supple. No JVD, no bruit. CHEST: Clear to auscultation bilaterally. HEART: S1, S2, regular, no murmur. ABDOMEN: Soft, benign, nontender, no organomegaly. Bowel sounds present. EXTREMITIES: Negative for any edema. MUSCULOSKELETAL: Did not show any acute arthritis involving any joint. CENTRAL NERVOUS SYSTEM: Alert, awake, oriented x3. No focal sensory and/or motor deficit appreciated. LABORATORY DATA: Noted today white count was 9.83, H&H 13.7/39.3, platelet was 240. Sodium 136, potassium 3.1, chloride 102, carbon dioxide 26, BUN 10, creatinine 1.24, random glucose 93. Lactic acid was 1.96. Phosphorus 1.2, magnesium 1.5. LFTs unremarkable. Beta HCG negative. UA examination unremarkable. Influenza A and B negative. Chest x-ray reported as no acute process. EKG was in sinus rhythm, rate of 123 per minute and minor nonspecific ST-T wave changes. IMPRESSION AND PLAN: 1. Electrolyte abnormalities with history of type 4 renal tubular acidosis. She will be admitted to telemetry unit. Nephrology was consulted, and replacement of magnesium, phosphorus and potassium has been started. We will monitor electrolytes while in the hospital. 2. Flu-like symptoms have been going on for the last 3 days. Flu has been negative. She will get Tylenol for fever and fluid replacement for dehydration. 3. Chronic renal impairment secondary to status post renal transplant. Her creatinine has not been worse during this admission. Nephrology consultation will be taken. We will continue with her anti-rejection medications. 4. Hypertension. Blood pressure seems to be controlled right now. Continue with current medications. 5. Deep venous thrombosis prophylaxis with subcutaneous heparin. 6. Gastrointestinal prophylaxis with Maalox and Mylanta as needed. 7. Code status. She will be full code. In my clinical assessment, the beneficiary meets criteria as per CMS for 2-midnight stay in the hospital. ELOY
[2017-11-07] MEDS ORDERED: POTASSIUM CHLORIDE 10 MEQ TABCR PO STA ×2 (08:24→17:37)
[2017-11-07] MEDS: ACETAMINOPHEN 325 MG TAB PO PRN ×3 (08:59→23:17)
[2017-11-07] MEDS ORDERED: TACROLIMUS 1 MG CAP PO SCH (09:00)
[2017-11-07] MEDS: NSS + 20MEQ KCL 1000ML 1,000 ML IV SCH ×2 (09:40→22:03)
--- NOTE | 2017-11-07 10:57 | Progress Note ---
Medicine Progress Note Date & Time of Visit: Nov 07, 2017 at 10:51. Subjective seen resting in bed, family visiting states she feels slightly improved compared to yesterday has some frontal, maxillary sinus tenderness no drainage some sore throat denies chest pain, dyspnea, still has cough- dry no abdominal pain, problems with BM or urination no other symptoms noted Objective Last 8 Hrs Date Time Temp Pulse Resp B/P (MAP) Pulse Ox O2 Delivery O2 Flow Rate FiO2 11/07/17 08:00 Room Air 11/07/17 07:40 37.2 101 18 143/89 (107) 99 Room Air 11/07/17 04:00 36.8 89 16 133/88 (103) 99 Room Air Physical Exam: General- oriented x 3, not in distress, speaks in sentences with no effort Head- atraumatic Eyes- PERRL, EOMI, anicteric ENT- oropharynx clear mild frontal and maxillary sinus tenderness Neck- supple, no JVD, no adenopathy, no thyromegaly; carotids +2/2 Lungs- clear breath sounds bilaterally Heart- regular rhythm; no murmur, normal rate Abdomen- normal bowel sounds, soft, nontender, no masses Extremities- no pretibial edema, no calf tenderness; peripheral pulses intact Neuro- alert, oriented x 3; PERRL, EOMI; no facial palsy; no dysarthria; motor 5 /5 bilaterally; no gross focal deficits Skin- warm & dry Laboratory Results: Last 24 Hours Test 11/06/17 18:57 11/06/17 19:15 11/06/17 19:29 11/06/17 20:55 Influenza Type A Antigen Neg for Influ A Influenza Type B Antigen Neg for Influ B White Blood Count 9.83 K/uL Red Blood Count 4.33 M/uL Hemoglobin 13.7 g/dL Hematocrit 39.3 % Mean Corpuscular Volume 90.8 fL Mean Corpuscular Hemoglobin 31.6 pg Mean Corpuscular Hemoglobin Concent 34.9 g/dl Platelet Count 240 K/uL Mean Platelet Volume 10.6 fL Neutrophils (%) (Auto) 84.9 % Lymphocytes (%) (Auto) 8.0 % Monocytes (%) (Auto) 6.5 % Eosinophils (%) (Auto) 0.1 % Basophils (%) (Auto) 0.3 % Neutrophils # (Auto) 8.34 K/uL Lymphocytes # (Auto) 0.79 K/uL Monocytes # (Auto) 0.64 K/uL Eosinophils # (Auto) 0.01 K/uL Basophils # (Auto) 0.03 K/uL RDW Standard Deviation 43.6 fL RDW Coefficient of Variation 13.2 % Immature Granulocyte % (Auto) 0.2 % Immature Granulocyte # (Auto) 0.02 K/uL Sodium Level 136 mmol/L Potassium Level 3.1 mmol/L Chloride Level 102 mmol/L Carbon Dioxide Level 26 mmol/L Anion Gap 8.0 mmol/L Blood Urea Nitrogen 10 mg/dl Creatinine 1.24 mg/dl Est Creatinine Clear Calc Drug Dose 56.8 ml/min Estimated GFR () 71.9 Estimated GFR (Non- 62.0 BUN/Creatinine Ratio 7.8 Random Glucose 93 mg/dl Calcium Level 9.3 mg/dl Phosphorus Level 1.2 mg/dl Magnesium Level 1.5 mg/dl Total Bilirubin 0.5 mg/dl Aspartate Amino Transf (AST/SGOT) 12 U/L Alanine Aminotransferase (ALT/SGPT) 18 U/L Alkaline Phosphatase 65 U/L Total Protein 7.8 gm/dl Albumin 4.2 gm/dl Globulin 3.6 gm/dl Albumin/Globulin Ratio 1.2 Human Chorionic Gonadotropin, Qual NEG Bedside Lactic Acid Venous 1.96 mmol/L Urine Color YELLOW Urine Appearance CLEAR Urine pH 8.0 Urine Specific Filion 1.008 Urine Protein NEG Urine Glucose (UA) NEG Urine Ketones NEG Urine Occult Blood 3+ Urine Nitrite NEG Urine Bilirubin NEG Urine Urobilinogen NEG Urine Leukocyte Esterase TRACE Urine WBC (Auto) 1-5 /hpf Urine RBC (Auto) >30 /hpf Urine Hyaline Casts (Auto) 1-5 /lpf Urine Epithelial Cells (Auto) 20-30 /lpf Urine Bacteria (Auto) NEG Test 11/07/17 06:03 11/07/17 09:19 11/07/17 10:00 White Blood Count 5.78 K/uL Red Blood Count 4.17 M/uL Hemoglobin 13.3 g/dL Hematocrit 37.8 % Mean Corpuscular Volume 90.6 fL Mean Corpuscular Hemoglobin 31.9 pg Mean Corpuscular Hemoglobin Concent 35.2 g/dl RDW Standard Deviation 44.2 fL RDW Coefficient of Variation 13.3 % Platelet Count 197 K/uL Mean Platelet Volume 10.5 fL Prothrombin Time 10.6 SECONDS Prothromb Time International Ratio 1.0 Sodium Level 138 mmol/L Potassium Level 2.9 mmol/L Chloride Level 104 mmol/L Carbon Dioxide Level 26 mmol/L Anion Gap 9.0 mmol/L Blood Urea Nitrogen 6 mg/dl Creatinine 0.81 mg/dl Est Creatinine Clear Calc Drug Dose 86.9 ml/min Estimated GFR () 120.3 Estimated GFR (Non- 103.8 BUN/Creatinine Ratio 7.3 Random Glucose 92 mg/dl Calcium Level 8.5 mg/dl Phosphorus Level 2.6 mg/dl Magnesium Level 1.8 mg/dl Lactic Acid Level 1.2 mmol/L Date/Time Source Procedure Growth Status 11/06/17 19:18 Blood Blood Culture Pending Received 11/06/17 19:15 Blood Blood Culture Pending Received Assessment & Plan 22 year old female with history of Renal Transplant, CKD, Ig Deficiency presenting with fever, cough, myalgias. FEVER R/O INFLUENZA Rapid Test negative PCR pending POSSIBLE BACTERIAL SINUSITIS/UPPER RESPIRATORY TRACT INFECTION VS. VIRAL URTI on chronic Bactrim add Levaquin supportive care with IV fluids, tylenol HYPOKALEMIA replace HISTORY OF RENAL TRANSPLANT continue Tacrolimus and Mycophenolate HYPERTENSION continue Amlodipine DVT Prophylaxis SCDs Full Code Dispo lives with family at home Current Inpatient Medications: Current Inpatient Medications Medications (Trade) Dose Ordered Sig/Victor M Route Start Time Stop Time Status Last Admin Dose Admin Heparin Sodium (Porcine) (Heparin Sq 5000 Unit/0.5ml) 5,000 unit Q8 SQ 11/07/17 08:15 12/07/17 08:14 Ondansetron HCl (Zofran Inj) 4 mg Q6H PRN IV 11/07/17 00:00 12/07/17 00:00 Multivitamins (Multivitamin Tab) 1 tab DAILY PO 11/07/17 09:00 12/07/17 08:59 11/07/17 08:02 1 TAB Ondansetron HCl (Zofran Tab) 4 mg Q8 PRN PO 11/07/17 00:15 12/07/17 00:14 Tacrolimus (Prograf Cap) 8 mg BID PO 11/07/17 09:00 12/07/17 08:59 11/07/17 08:02 8 MG Triamcinolone Acetonide (Kenalog 0.1% Cream) 1 appln BID PRN EXT 11/07/17 00:15 12/07/17 00:14 Triamcinolone Acetonide (Nasacort Allergy 24hr) 2 sprays DAILY JUDIE 11/07/17 09:00 12/07/17 08:59 11/07/17 08:04 2 SPRAYS Trimethoprim/ Sulfamethoxazole (Septra 400/80MG Tab) 1 tab DAILY PO 11/07/17 09:00 12/07/17 08:59 11/07/17 08:02 1 TAB Amlodipine Besylate (Norvasc Tab) 10 mg DAILY PO 11/07/17 09:00 12/07/17 08:59 11/07/17 08:02 10 MG Magnesium Oxide (Mag-Ox Tab) 400 mg DAILY PO 11/07/17 09:00 12/07/17 08:59 11/07/17 08:03 400 MG Mycophenolate Sodium (Myfortic Tab) 360 mg BID PO 11/07/17 09:00 12/07/17 08:59 11/07/17 08:03 360 MG Miscellaneous Information (Order Awaiting Action) 1 ea QS N/A 11/07/17 08:00 12/07/17 07:59 Benzonatate (Tessalon Perles Cap) 100 mg TID PO 11/07/17 09:00 12/07/17 08:59 11/07/17 08:03 100 MG Acetaminophen (Tylenol Tab) 650 mg Q4H PRN PO 11/07/17 08:30 12/07/17 08:29 11/07/17 08:59 650 MG Potassium Chloride/Sodium Chloride 1,000 ml @ 80 mls/hr [id number] IV 11/07/17 09:30 12/07/17 09:29 11/07/17 09:40 80 MLS/HR
[2017-11-07 11:27] LABS: INFLUENZA B PCR Neg for Influ B (NEG)
[2017-11-07 11:32] LABS: INFLUENZA A PCR POS for Influ A (NEG)
[2017-11-07] MEDS ORDERED: OSELTAMIVIR PHOSPHATE 75 MG CAP PO ONE (11:35)
--- NOTE | 2017-11-07 12:36 | Nephrology Consultation ---
Nephrology Consultation Date & Providers Date of Consultation: Nov 07, 2017. Primary Care Provider: Gio Valle M.D. 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 She first became of aware of renal dysfunction at the age of [age] years old. Otherwise development has not been affected. She was never on dialysis. Melly underwent an uncomplicated living-related donor renal transplant at the age of 12 years at [facility]. Allograft function has been very good. She has a stable serum creatinine of approximately 1 mg/dL. Melly has followed closely with the pediatric nephrology team at [facility]. I took over her care in June 2017. Melly's mother was the kidney donor. Melly's grandmother was present this morning at the time of my evaluation. I discussed the plan of care with Dr. Delgado as well. There is no history of rejection. She has been maintained on dual maintenance immunosuppression with tacrolimus and Myfortic. She was unable to tolerate Mycophenolate mofetil due to GI symptoms. Tacro was increased in 2014 due to a low trough level (increased from 14 to 16 mg daily). No dose adjustment has been required since that time. She reports good compliance with medications. Routine screening for BK and CMV has been negative. 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 She reports approximately 2-3 URI each year. She developed facial cellulitis last year as well. She denies any other significant infections. 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 She is maintained on Amlodipine for a history of hypertension. Blood pressure has been well controlled. She occasionally experiences mild lower extremity edema when standing on her feet for long periods of time. This does not concern her. She reports a few urinary tract infections since transplant but none that were difficult to treat. She denies any recent urinary symptoms. There is no history of kidney stones. She presented to the ED at [facility] yesterday with fevers and myalgias. She reported mild nausea and decreased appetite. She reports significant recent stress due to the of her grandmother. She has been surrounded by family. Several members have been recently ill. Melly has not been sleeping well. Fevers have defervesced. Flu screening positive. Past Medical/Surgical History Medical: ESRD with kidney function replaced by transplant Selective immune deficiency Hypertension Hypomagnesemia Seasonal allergies RTA 4 Surgical: Kidney transplant, T&A, strabismus surgery Allergies Coded Allergies: Dust Mite Extract (Verified Allergy, Mild, ., 11/06/17) Morphine (Verified Adverse Reaction, Unknown, PSYCHOSIS, 11/06/17) Inpatient Medications Current Inpatient Medications Medications (Trade) Dose Ordered Sig/Victor M Route Start Time Stop Time Status Last Admin Dose Admin Heparin Sodium (Porcine) (Heparin Sq 5000 Unit/0.5ml) 5,000 unit Q8 SQ 11/07/17 08:15 12/07/17 08:14 Ondansetron HCl (Zofran Inj) 4 mg Q6H PRN IV 11/07/17 00:00 12/07/17 00:00 Multivitamins (Multivitamin Tab) 1 tab DAILY PO 11/07/17 09:00 12/07/17 08:59 11/07/17 08:02 1 TAB Ondansetron HCl (Zofran Tab) 4 mg Q8 PRN PO 11/07/17 00:15 12/07/17 00:14 Tacrolimus (Prograf Cap) 8 mg BID PO 11/07/17 09:00 12/07/17 08:59 11/07/17 08:02 8 MG Triamcinolone Acetonide (Kenalog 0.1% Cream) 1 appln BID PRN EXT 11/07/17 00:15 12/07/17 00:14 Triamcinolone Acetonide (Nasacort Allergy 24hr) 2 sprays DAILY JUDIE 11/07/17 09:00 12/07/17 08:59 11/07/17 08:04 2 SPRAYS Trimethoprim/ Sulfamethoxazole (Septra 400/80MG Tab) 1 tab DAILY PO 11/07/17 09:00 12/07/17 08:59 11/07/17 08:02 1 TAB Amlodipine Besylate (Norvasc Tab) 10 mg DAILY PO 11/07/17 09:00 12/07/17 08:59 11/07/17 08:02 10 MG Magnesium Oxide (Mag-Ox Tab) 400 mg DAILY PO 11/07/17 09:00 12/07/17 08:59 11/07/17 08:03 400 MG Mycophenolate Sodium (Myfortic Tab) 360 mg BID PO 11/07/17 09:00 12/07/17 08:59 11/07/17 08:03 360 MG Miscellaneous Information (Order Awaiting Action) 1 ea QS N/A 11/07/17 08:00 12/07/17 07:59 Benzonatate (Tessalon Perles Cap) 100 mg TID PO 11/07/17 09:00 12/07/17 08:59 11/07/17 08:03 100 MG Acetaminophen (Tylenol Tab) 650 mg Q4H PRN PO 11/07/17 08:30 12/07/17 08:29 11/07/17 08:59 650 MG Potassium Chloride/Sodium Chloride 1,000 ml @ 80 mls/hr [id number] IV 11/07/17 09:30 12/07/17 09:29 11/07/17 09:40 80 MLS/HR Levofloxacin (Levaquin Tab) 500 mg DAILY@11 PO 11/07/17 11:00 11/17/17 10:59 Oseltamivir Phosphate (Tamiflu Cap) 75 mg BID PO 11/07/17 21:00 11/12/17 20:59 Family History Asthma GRANDMOTHER Diabetes mellitus FH: cancer FH: gallbladder disease FH: heart disease GRANDFATHER Hypertension GRANDFATHER Kidney disease Kidney stones Social History Smoking Status: Never Smoker Drug Use: none Marital Status: single Housing Status: lives with family Occupation: [employer] student Review of Systems A complete review of systems was performed. Pertinent positives are noted above. All other systems are negative. Physical Exam Date Time Temp Pulse Resp B/P (MAP) Pulse Ox O2 Delivery O2 Flow Rate FiO2 11/07/17 12:20 Room Air 11/07/17 11:53 36.8 105 19 136/82 (100) 95 Room Air 11/07/17 08:00 Room Air 11/07/17 07:40 37.2 101 18 143/89 (107) 99 Room Air 11/07/17 04:00 36.8 89 16 133/88 (103) 99 Room Air 11/07/17 01:25 36.7 90 18 144/92 97 Room Air 11/07/17 01:08 36.7 94 18 105/68 95 11/06/17 23:46 94 18 125/79 95 Room Air 11/06/17 22:08 37.5 93 18 134/91 95 Room Air 11/06/17 20:12 38.8 127 18 142/99 97 Room Air 11/06/17 18:07 39.3 136 18 142/95 99 Room Air General Appearance: WD/WN, no apparent distress Head: normocephalic, atraumatic Eyes: normal inspection, sclerae normal ENT: normal ENT inspection, pharynx normal Neck: supple, no JVD Respiratory/Chest: lungs clear, no respiratory distress, no accessory muscle use Cardiovascular: regular rate, rhythm, no murmur Abdomen/GI: non tender, soft Extremities/Musculoskelatal: normal inspection, no pedal edema Neurologic/Psych: alert, normal mood/affect Skin: normal color Laboratory Results Last 24 Hours Test 11/06/17 18:57 11/06/17 19:15 11/06/17 19:29 11/06/17 20:55 Influenza Type A Antigen Neg for Influ A Influenza Type B Antigen Neg for Influ B White Blood Count 9.83 K/uL Red Blood Count 4.33 M/uL Hemoglobin 13.7 g/dL Hematocrit 39.3 % Mean Corpuscular Volume 90.8 fL Mean Corpuscular Hemoglobin 31.6 pg Mean Corpuscular Hemoglobin Concent 34.9 g/dl Platelet Count 240 K/uL Mean Platelet Volume 10.6 fL Neutrophils (%) (Auto) 84.9 % Lymphocytes (%) (Auto) 8.0 % Monocytes (%) (Auto) 6.5 % Eosinophils (%) (Auto) 0.1 % Basophils (%) (Auto) 0.3 % Neutrophils # (Auto) 8.34 K/uL Lymphocytes # (Auto) 0.79 K/uL Monocytes # (Auto) 0.64 K/uL Eosinophils # (Auto) 0.01 K/uL Basophils # (Auto) 0.03 K/uL RDW Standard Deviation 43.6 fL RDW Coefficient of Variation 13.2 % Immature Granulocyte % (Auto) 0.2 % Immature Granulocyte # (Auto) 0.02 K/uL Sodium Level 136 mmol/L Potassium Level 3.1 mmol/L Chloride Level 102 mmol/L Carbon Dioxide Level 26 mmol/L Anion Gap 8.0 mmol/L Blood Urea Nitrogen 10 mg/dl Creatinine 1.24 mg/dl Est Creatinine Clear Calc Drug Dose 56.8 ml/min Estimated GFR () 71.9 Estimated GFR (Non- 62.0 BUN/Creatinine Ratio 7.8 Random Glucose 93 mg/dl Calcium Level 9.3 mg/dl Phosphorus Level 1.2 mg/dl Magnesium Level 1.5 mg/dl Total Bilirubin 0.5 mg/dl Aspartate Amino Transf (AST/SGOT) 12 U/L Alanine Aminotransferase (ALT/SGPT) 18 U/L Alkaline Phosphatase 65 U/L Total Protein 7.8 gm/dl Albumin 4.2 gm/dl Globulin 3.6 gm/dl Albumin/Globulin Ratio 1.2 Human Chorionic Gonadotropin, Qual NEG Bedside Lactic Acid Venous 1.96 mmol/L Urine Color YELLOW Urine Appearance CLEAR Urine pH 8.0 Urine Specific [place] 1.008 Urine Protein NEG Urine Glucose (UA) NEG Urine Ketones NEG Urine Occult Blood 3+ Urine Nitrite NEG Urine Bilirubin NEG Urine Urobilinogen NEG Urine Leukocyte Esterase TRACE Urine WBC (Auto) 1-5 /hpf Urine RBC (Auto) >30 /hpf Urine Hyaline Casts (Auto) 1-5 /lpf Urine Epithelial Cells (Auto) 20-30 /lpf Urine Bacteria (Auto) NEG Test 11/07/17 06:03 11/07/17 09:19 11/07/17 10:00 White Blood Count 5.78 K/uL Red Blood Count 4.17 M/uL Hemoglobin 13.3 g/dL Hematocrit 37.8 % Mean Corpuscular Volume 90.6 fL Mean Corpuscular Hemoglobin 31.9 pg Mean Corpuscular Hemoglobin Concent 35.2 g/dl RDW Standard Deviation 44.2 fL RDW Coefficient of Variation 13.3 % Platelet Count 197 K/uL Mean Platelet Volume 10.5 fL Prothrombin Time 10.6 SECONDS Prothromb Time International Ratio 1.0 Sodium Level 138 mmol/L Potassium Level 2.9 mmol/L Chloride Level 104 mmol/L Carbon Dioxide Level 26 mmol/L Anion Gap 9.0 mmol/L Blood Urea Nitrogen 6 mg/dl Creatinine 0.81 mg/dl Est Creatinine Clear Calc Drug Dose 86.9 ml/min Estimated GFR () 120.3 Estimated GFR (Non- 103.8 BUN/Creatinine Ratio 7.3 Random Glucose 92 mg/dl Calcium Level 8.5 mg/dl Phosphorus Level 2.6 mg/dl Magnesium Level 1.8 mg/dl Lactic Acid Level 1.2 mmol/L Influenza Type A (RT-PCR) POS for Influ A Influenza Type B (RT-PCR) Neg for Influ B Impression (1) End-stage renal failure with renal transplant (2) Dehydration (3) Influenza-like symptoms (4) HTN (hypertension) (5) Familial juvenile nephrophthisis Melly is a 22-year-old female who 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 She has a functioning living-related donor allograft with a stable creatinine of 1 mg/dL. She is maintained on dual maintenance immunosuppression with Prograf and Myfortic. She was admitted with influenza infection as well as sinusitis. She is to be treated with Tamiflu and levofloxacin. Melly is responding to treatment well. Appetite is good. Volume status is appropriate. BP acceptable. Recommendations -- Continue to monitor and replete potassium, magnesium and phosphorus as needed -- Repeat metabolic profile tomorrow AM -- Continue IVF additional 24 hours -- Medications appropriate for renal function -- Given clinical improvement in signs of infection, no change in immunosuppression -- Will monitor
[2017-11-07] MEDS: LEVOFLOXACIN 500 MG TAB PO SCH (12:56)
[2017-11-07] MEDS ORDERED: TRAMADOL HCL 50 MG TAB PO PRN (15:30)
[2017-11-07] MEDS ORDERED: GUAIFENESIN 200 MG TAB PO PRN (15:30)
[2017-11-07] MEDS: OSELTAMIVIR PHOSPHATE 75 MG CAP PO SCH (21:28)
[2017-11-08] VITALS (7 sets, daily range): BP systolic 119–189; BP diastolic 79–91; PULSE 76–130; TEMP 36.8–37; O2SAT 96–99
[2017-11-08] MEDS: HEPARIN SOD 5000 UNIT/0.5 ML CARP SQ SCH ×3 (06:00→21:48)
[2017-11-08 07:04] LABS: ALBUMIN 3.7 gm/dl (3.4-5.0); CREATININE 0.78 mg/dl (0.60-1.20); PHOSPHORUS 2.3 mg/dl (2.5-4.9); POTASSIUM 3.5 mmol/L (3.5-5.1)
[2017-11-08] MEDS: MAGNESIUM OXIDE 400 MG TAB PO SCH (08:55)
[2017-11-08] MEDS: TACROLIMUS 1 MG CAP PO SCH ×2 (08:55→19:47)
[2017-11-08] MEDS: AMLODIPINE BESYLATE 5 MG TAB PO SCH (08:55)
[2017-11-08] MEDS: OSELTAMIVIR PHOSPHATE 75 MG CAP PO SCH ×2 (08:55→19:48)
[2017-11-08] MEDS: MULTIVITAMIN TAB PO SCH (08:55)
[2017-11-08] MEDS: MYCOPHENOLATE SODIUM 180 MG TAB PO SCH ×2 (08:55→19:48)
[2017-11-08] MEDS: BENZONATATE 100MG CAP PO SCH ×3 (08:55→19:47)
[2017-11-08] MEDS: SULFAMETHOXAZOLE/TRIMETHOPRIM 400/80MG TAB PO SCH (08:56)
[2017-11-08] MEDS: TRIAMCINOLONE ACET NASAL SPRAY 10.8ML BTL NAE SCH (08:56)
--- NOTE | 2017-11-08 09:08 | Nephrology Progress Note ---
Nephrology Progress Note Date of Service Nov 08, 2017. Chief Complaint Kidney transplant Subjective No acute events overnight. Melly reports fatigue and mild persistent myalgias. Her appetite is poor. Swallowing remains slightly difficult due to sore throat. She denies fevers or chills. She reports mil lightheadedness while standing. Cough persists. mild dyspnea with exertion. No dyspnea at rest. No urinary symptoms. Review of Systems A complete review of systems was performed. Pertinent positives are noted above. All other systems are negative. Vital Signs Last 8 Hrs Date Time Temp Pulse Resp B/P (MAP) Pulse Ox O2 Delivery O2 Flow Rate FiO2 11/08/17 08:05 36.8 76 18 129/87 (101) 96 Room Air 11/08/17 04:00 Room Air 11/08/17 03:30 36.9 92 18 131/81 (98) 99 Room Air Last Recorded Weight Weight (Kilograms): 52.400 Physical Exam General Appearance: WD/WN, no apparent distress Head: normocephalic, atraumatic Eyes: normal inspection, sclerae normal ENT: normal ENT inspection, pharynx normal Neck: supple, no JVD Respiratory/Chest: no respiratory distress, no accessory muscle use Cardiovascular: regular rate, rhythm, no gallop Abdomen/GI: non tender, soft, + pertinent finding (allograft non-tender) Extremities/Musculoskelatal: normal inspection, no pedal edema Neurologic/Psych: alert, normal mood/affect Family History Asthma GRANDMOTHER Diabetes mellitus FH: cancer FH: gallbladder disease FH: heart disease GRANDFATHER Hypertension GRANDFATHER Kidney disease Kidney stones Social History Smoking Status: Never smoker Drug Use: none Marital Status: single Housing Status: lives with family 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: [employer] student Laboratory Results Past 24 Hours 11/07/17 15:52 11/08/17 05:55 Test 11/07/17 09:19 11/07/17 10:00 11/08/17 05:55 Lactic Acid Level 1.2 mmol/L (0.4-2.0) Influenza Type A (RT-PCR) POS for Influ A (NEG) Influenza Type B (RT-PCR) Neg for Influ B (NEG) Anion Gap 7.0 mmol/L (3-11) Est Creatinine Clear Calc Drug Dose 90.3 ml/min Estimated GFR () 126.0 Estimated GFR (Non- 108.7 BUN/Creatinine Ratio 6.5 (10-20) Calcium Level 9.0 mg/dl (8.5-10.1) Phosphorus Level 2.3 mg/dl (2.5-4.9) Albumin 3.7 gm/dl (3.4-5.0) Allergies Coded Allergies: Dust Mite Extract (Verified Allergy, Mild, ., 11/06/17) Morphine (Verified Adverse Reaction, Unknown, PSYCHOSIS, 11/06/17) Medications Current Inpatient Medications Medications (Trade) Dose Ordered Sig/Victor M Route Start Time Stop Time Status Last Admin Dose Admin Heparin Sodium (Porcine) (Heparin Sq 5000 Unit/0.5ml) 5,000 unit Q8 SQ 11/07/17 08:15 12/07/17 08:14 Ondansetron HCl (Zofran Inj) 4 mg Q6H PRN IV 11/07/17 00:00 12/07/17 00:00 Multivitamins (Multivitamin Tab) 1 tab DAILY PO 11/07/17 09:00 12/07/17 08:59 11/08/17 08:55 1 TAB Ondansetron HCl (Zofran Tab) 4 mg Q8 PRN PO 11/07/17 00:15 12/07/17 00:14 Tacrolimus (Prograf Cap) 8 mg BID PO 11/07/17 09:00 12/07/17 08:59 11/08/17 08:55 8 MG Triamcinolone Acetonide (Kenalog 0.1% Cream) 1 appln BID PRN EXT 11/07/17 00:15 12/07/17 00:14 Triamcinolone Acetonide (Nasacort Allergy 24hr) 2 sprays DAILY JUDIE 11/07/17 09:00 12/07/17 08:59 11/08/17 08:56 2 SPRAYS Trimethoprim/ Sulfamethoxazole (Septra 400/80MG Tab) 1 tab DAILY PO 11/07/17 09:00 12/07/17 08:59 11/08/17 08:56 1 TAB Amlodipine Besylate (Norvasc Tab) 10 mg DAILY PO 11/07/17 09:00 12/07/17 08:59 11/08/17 08:55 10 MG Magnesium Oxide (Mag-Ox Tab) 400 mg DAILY PO 11/07/17 09:00 12/07/17 08:59 11/08/17 08:55 400 MG Mycophenolate Sodium (Myfortic Tab) 360 mg BID PO 11/07/17 09:00 12/07/17 08:59 11/08/17 08:55 360 MG Miscellaneous Information (Order Awaiting Action) 1 ea QS N/A 11/07/17 08:00 12/07/17 07:59 Benzonatate (Tessalon Perles Cap) 100 mg TID PO 11/07/17 09:00 12/07/17 08:59 11/08/17 08:55 100 MG Acetaminophen (Tylenol Tab) 650 mg Q4H PRN PO 11/07/17 08:30 12/07/17 08:29 11/07/17 23:17 650 MG Potassium Chloride/Sodium Chloride 1,000 ml @ 80 mls/hr [id number] IV 11/07/17 09:30 12/07/17 09:29 11/07/17 22:03 80 MLS/HR Levofloxacin (Levaquin Tab) 500 mg DAILY@11 PO 11/07/17 11:00 11/17/17 10:59 11/07/17 12:56 500 MG Oseltamivir Phosphate (Tamiflu Cap) 75 mg BID PO 11/07/17 21:00 11/12/17 20:59 11/08/17 08:55 75 MG Tramadol HCl (Ultram Tab) 50 mg Q4H PRN PO 11/07/17 15:30 12/07/17 15:29 11/07/17 16:26 50 MG Guaifenesin (Organidin Nr Tab) 200 mg Q4H PRN PO 11/07/17 15:30 12/07/17 15:29 11/07/17 16:27 200 MG Impression (1) End-stage renal failure with renal transplant (2) Dehydration (3) Influenza-like symptoms (4) HTN (hypertension) (5) Familial juvenile nephrophthisis Melly is a 22-year-old female who 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 She has a functioning living-related donor allograft with a stable creatinine of <1 mg/dL. She is maintained on dual maintenance immunosuppression with Prograf and Myfortic. She was admitted with influenza infection as well as sinusitis. She is to be treated with Tamiflu and levofloxacin. Melly is responding to treatment well. Appetite is good. Volume status is appropriate. BP acceptable. She remains on IVF with 0.9% saline. Appetite slowly improving. Recommendations -- Continue to monitor and replete potassium, magnesium and phosphorus as needed -- Repeat metabolic profile tomorrow AM. -- Continue IVF additional 1 L then DC. -- Medications appropriate for renal function. -- Given clinical improvement in signs of infection, no change in immunosuppression. -- Will send tacro trough with next blood work.
--- NOTE | 2017-11-08 10:02 | Progress Note ---
Medicine Progress Note Date & Time of Visit: Nov 08, 2017 at 09:39. Subjective Pt was seen and examined Lying in bed with no distress with mother at bedside Pt said that she feels slightly improved She wants to go home today She said that she has not been eating much Denies any chest pain, palpitation, fever and SOB Objective Last 8 Hrs Date Time Temp Pulse Resp B/P (MAP) Pulse Ox O2 Delivery O2 Flow Rate FiO2 11/08/17 08:05 36.8 76 18 129/87 (101) 96 Room Air 11/08/17 04:00 Room Air 11/08/17 03:30 36.9 92 18 131/81 (98) 99 Room Air Physical Exam: General- no acute distress Head- atraumatic Eyes- PERRL, EOMI ENT- oropharynx clear Neck- supple, no JVD Lungs- No wheezing, No rale Heart- Tachycardia Abdomen- normal bowel sounds, soft Extremities- no pretibial edema, no calf tenderness; Neuro- alert, oriented x 3; PERRL, EOMI Skin- warm & dry Laboratory Results: Last 24 Hours Test 11/07/17 10:00 11/07/17 15:52 11/08/17 05:55 Influenza Type A (RT-PCR) POS for Influ A Influenza Type B (RT-PCR) Neg for Influ B Potassium Level 3.1 mmol/L 3.5 mmol/L Sodium Level 137 mmol/L Chloride Level 105 mmol/L Carbon Dioxide Level 25 mmol/L Anion Gap 7.0 mmol/L Blood Urea Nitrogen 5 mg/dl Creatinine 0.78 mg/dl Est Creatinine Clear Calc Drug Dose 90.3 ml/min Estimated GFR () 126.0 Estimated GFR (Non- 108.7 BUN/Creatinine Ratio 6.5 Random Glucose 93 mg/dl Calcium Level 9.0 mg/dl Phosphorus Level 2.3 mg/dl Albumin 3.7 gm/dl Assessment & Plan FLU LIKE SYMPTOMS INFLUENZA A Rapid Test negative Flu PCR positive On Tamiflu BID to complete 5 days Continue monitor Blood cx no growth CXR showed no acute process. Will d/c Levaquin On chronic Bactrim ELECTROLYTES IMBALANCE Will replace Phosphorus Continue monitor electrolytes HISTORY OF RENAL TRANSPLANT continue Tacrolimus and Mycophenolate Nephrology on board HYPERTENSION continue Amlodipine DVT Prophylaxis SCDs CODE STATUS Full Code Consultants: Nephrology Current Inpatient Medications: Current Inpatient Medications Medications (Trade) Dose Ordered Sig/Victor M Route Start Time Stop Time Status Last Admin Dose Admin Heparin Sodium (Porcine) (Heparin Sq 5000 Unit/0.5ml) 5,000 unit Q8 SQ 11/07/17 08:15 12/07/17 08:14 Ondansetron HCl (Zofran Inj) 4 mg Q6H PRN IV 11/07/17 00:00 12/07/17 00:00 Multivitamins (Multivitamin Tab) 1 tab DAILY PO 11/07/17 09:00 12/07/17 08:59 11/08/17 08:55 1 TAB Ondansetron HCl (Zofran Tab) 4 mg Q8 PRN PO 11/07/17 00:15 12/07/17 00:14 Tacrolimus (Prograf Cap) 8 mg BID PO 11/07/17 09:00 12/07/17 08:59 11/08/17 08:55 8 MG Triamcinolone Acetonide (Kenalog 0.1% Cream) 1 appln BID PRN EXT 11/07/17 00:15 12/07/17 00:14 Triamcinolone Acetonide (Nasacort Allergy 24hr) 2 sprays DAILY JUDIE 11/07/17 09:00 12/07/17 08:59 11/08/17 08:56 2 SPRAYS Trimethoprim/ Sulfamethoxazole (Septra 400/80MG Tab) 1 tab DAILY PO 11/07/17 09:00 12/07/17 08:59 11/08/17 08:56 1 TAB Amlodipine Besylate (Norvasc Tab) 10 mg DAILY PO 11/07/17 09:00 12/07/17 08:59 11/08/17 08:55 10 MG Magnesium Oxide (Mag-Ox Tab) 400 mg DAILY PO 11/07/17 09:00 12/07/17 08:59 11/08/17 08:55 400 MG Mycophenolate Sodium (Myfortic Tab) 360 mg BID PO 11/07/17 09:00 12/07/17 08:59 11/08/17 08:55 360 MG Miscellaneous Information (Order Awaiting Action) 1 ea QS N/A 11/07/17 08:00 12/07/17 07:59 Benzonatate (Tessalon Perles Cap) 100 mg TID PO 1/29/18 09:00 12/07/17 08:59 11/08/17 08:55 100 MG Acetaminophen (Tylenol Tab) 650 mg Q4H PRN PO 11/07/17 08:30 12/07/17 08:29 11/07/17 23:17 650 MG Potassium Chloride/Sodium Chloride 1,000 ml @ 80 mls/hr [id number] IV 11/07/17 09:30 12/07/17 09:29 11/07/17 22:03 80 MLS/HR Levofloxacin (Levaquin Tab) 500 mg DAILY@11 PO 11/07/17 11:00 11/17/17 10:59 11/07/17 12:56 500 MG Oseltamivir Phosphate (Tamiflu Cap) 75 mg BID PO 11/07/17 21:00 11/12/17 20:59 11/08/17 08:55 75 MG Tramadol HCl (Ultram Tab) 50 mg Q4H PRN PO 11/07/17 15:30 12/07/17 15:29 11/07/17 16:26 50 MG Guaifenesin (Organidin Nr Tab) 200 mg Q4H PRN PO 11/07/17 15:30 12/07/17 15:29 11/07/17 16:27 200 MG
[2017-11-08] MEDS ORDERED: POTASSIUM PHOS 3 MMOL/1 ML INFUSION IV ONE (10:15)
[2017-11-08] MEDS: NSS + 20MEQ KCL 1000ML 1,000 ML IV SCH (10:33)
[2017-11-08] MEDS: LEVOFLOXACIN 500 MG TAB PO SCH (10:33)
[2017-11-08] MEDS ORDERED: POTASSIUM PHOSPHATE INJ 15 MMOL in SODIUM CHLORIDE 0.9% 250ML 250 ML IV ONE (11:00)
[2017-11-09 03:49] VITALS: BP 128/87; PULSE 94; TEMP 36.6; O2SAT 98
[2017-11-09] MEDS: NSS + 20MEQ KCL 1000ML 1,000 ML IV SCH (04:43)
[2017-11-09] MEDS: HEPARIN SOD 5000 UNIT/0.5 ML CARP SQ SCH ×2 (05:47→11:41)
[2017-11-09] MEDS: MYCOPHENOLATE SODIUM 180 MG TAB PO SCH (07:54)
[2017-11-09] MEDS: BENZONATATE 100MG CAP PO SCH (07:55)
[2017-11-09] MEDS: SULFAMETHOXAZOLE/TRIMETHOPRIM 400/80MG TAB PO SCH (07:55)
[2017-11-09] MEDS: OSELTAMIVIR PHOSPHATE 75 MG CAP PO SCH (07:55)
[2017-11-09] MEDS: TACROLIMUS 1 MG CAP PO SCH (07:56)
[2017-11-09] MEDS: MAGNESIUM OXIDE 400 MG TAB PO SCH (07:56)
[2017-11-09] MEDS: MULTIVITAMIN TAB PO SCH (07:56)
[2017-11-09] MEDS: AMLODIPINE BESYLATE 5 MG TAB PO SCH (07:56)
[2017-11-09] MEDS: TRIAMCINOLONE ACET NASAL SPRAY 10.8ML BTL NAE SCH (07:57)
[2017-11-09 07:58] VITALS: BP 113/79; PULSE 88; TEMP 36.6; O2SAT 97
--- NOTE | 2017-11-09 09:02 | Nephrology Progress Note ---
Nephrology Progress Note Date of Service Nov 09, 2017. Chief Complaint Kidney transplant Subjective No acute events overnight. No complaints this morning. She denies significant dyspnea. Activity tolerance improving. No fevers or chills. Review of Systems A complete review of systems was performed. Pertinent positives are noted above. All other systems are negative. Vital Signs Last 8 Hrs Date Time Temp Pulse Resp B/P (MAP) Pulse Ox O2 Delivery O2 Flow Rate FiO2 11/09/17 07:58 36.6 88 16 113/79 (90) 97 Room Air 11/09/17 04:00 Room Air 11/09/17 03:49 36.6 94 16 128/87 (101) 98 Room Air Last Recorded Weight Weight (Kilograms): 52.400 Physical Exam General Appearance: WD/WN, no apparent distress Head: normocephalic, atraumatic Eyes: normal inspection, sclerae normal ENT: normal ENT inspection, pharynx normal Neck: supple, no JVD Respiratory/Chest: lungs clear, no respiratory distress, no accessory muscle use Cardiovascular: regular rate, rhythm, no gallop Abdomen/GI: non tender, soft Extremities/Musculoskelatal: normal inspection, no pedal edema Neurologic/Psych: alert, oriented x 3 Family History Asthma GRANDMOTHER Diabetes mellitus FH: cancer FH: gallbladder disease FH: heart disease GRANDFATHER Hypertension GRANDFATHER Kidney disease Kidney stones Social History Smoking Status: Never smoker Drug Use: none Marital Status: single Housing Status: lives with family Occupation: [employer] student Laboratory Results Past 24 Hours Test 11/09/17 08:23 Allergies Coded Allergies: Dust Mite Extract (Verified Allergy, Mild, ., 11/06/17) Morphine (Verified Adverse Reaction, Unknown, PSYCHOSIS, 11/06/17) Medications Current Inpatient Medications Medications (Trade) Dose Ordered Sig/Victor M Route Start Time Stop Time Status Last Admin Dose Admin Heparin Sodium (Porcine) (Heparin Sq 5000 Unit/0.5ml) 5,000 unit Q8 SQ 11/07/17 08:15 12/07/17 08:14 Ondansetron HCl (Zofran Inj) 4 mg Q6H PRN IV 11/07/17 00:00 12/07/17 00:00 Multivitamins (Multivitamin Tab) 1 tab DAILY PO 11/07/17 09:00 12/07/17 08:59 11/09/17 07:56 1 TAB Ondansetron HCl (Zofran Tab) 4 mg Q8 PRN PO 11/07/17 00:15 12/07/17 00:14 Tacrolimus (Prograf Cap) 8 mg BID PO 11/07/17 09:00 12/07/17 08:59 11/09/17 07:56 8 MG Triamcinolone Acetonide (Kenalog 0.1% Cream) 1 appln BID PRN EXT 11/07/17 00:15 12/07/17 00:14 Triamcinolone Acetonide (Nasacort Allergy 24hr) 2 sprays DAILY JUDIE 11/07/17 09:00 12/07/17 08:59 11/09/17 07:57 2 SPRAYS Trimethoprim/ Sulfamethoxazole (Septra 400/80MG Tab) 1 tab DAILY PO 11/07/17 09:00 12/07/17 08:59 11/09/17 07:55 1 TAB Amlodipine Besylate (Norvasc Tab) 10 mg DAILY PO 11/07/17 09:00 12/07/17 08:59 11/09/17 07:56 10 MG Magnesium Oxide (Mag-Ox Tab) 400 mg DAILY PO 11/07/17 09:00 12/07/17 08:59 11/09/17 07:56 400 MG Mycophenolate Sodium (Myfortic Tab) 360 mg BID PO 11/07/17 09:00 12/07/17 08:59 11/09/17 07:54 360 MG Miscellaneous Information (Order Awaiting Action) 1 ea QS N/A 11/07/17 08:00 12/07/17 07:59 Benzonatate (Tessalon Perles Cap) 100 mg TID PO 11/07/17 09:00 12/07/17 08:59 11/09/17 07:55 100 MG Acetaminophen (Tylenol Tab) 650 mg Q4H PRN PO 11/07/17 08:30 12/07/17 08:29 11/07/17 23:17 650 MG Potassium Chloride/Sodium Chloride 1,000 ml @ 80 mls/hr [id number] IV 11/07/17 09:30 12/07/17 09:29 11/09/17 04:43 80 MLS/HR Levofloxacin (Levaquin Tab) 500 mg DAILY@11 PO 11/07/17 11:00 2/8/18 10:59 11/08/17 10:33 500 MG Oseltamivir Phosphate (Tamiflu Cap) 75 mg BID PO 11/07/17 21:00 11/12/17 20:59 11/09/17 07:55 75 MG Tramadol HCl (Ultram Tab) 50 mg Q4H PRN PO 11/07/17 15:30 12/07/17 15:29 11/07/17 16:26 50 MG Guaifenesin (Organidin Nr Tab) 200 mg Q4H PRN PO 11/07/17 15:30 12/07/17 15:29 11/07/17 16:27 200 MG Impression (1) End-stage renal failure with renal transplant (2) Dehydration (3) Influenza-like symptoms (4) HTN (hypertension) (5) Familial juvenile nephrophthisis Melly is a 22-year-old female who 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 She has a functioning living-related donor allograft with a stable creatinine of <1 mg/dL. She is maintained on dual maintenance immunosuppression with Prograf and Myfortic. She was admitted with influenza infection as well as sinusitis. She is to be treated with Tamiflu and levofloxacin. Melly is responding to treatment well. Appetite is good. Volume status is appropriate. BP acceptable. She remains on IVF with 0.9% saline. Appetite slowly improving. Recommendations -- BP and volume status appropriate -- DC IVF -- Will repeat metabolic profile in 1 week with tacro trough as outpatient -- Medications appropriate for renal function. -- Continue tacro and MMF as rx
[2017-11-09 09:17] LABS: CREATININE 0.9 mg/dl (0.60-1.20); POTASSIUM 3.3 mmol/L (3.5-5.1)
[2017-11-09 11:34] VITALS: BP 114/74; PULSE 88; TEMP 36.5; O2SAT 98
[2017-11-09 11:59] VITALS: BP 114/74; PULSE 88; TEMP 36.5; O2SAT 98
[2017-11-09] MEDS ORDERED: POTASSIUM CHLORIDE 20 MEQ TABCR PO ONE (12:15)
--- NOTE | 2017-11-09 12:17 | Progress Note ---
Medicine Progress Note Date & Time of Visit: Nov 09, 2017 at 12:11. Subjective Pt was seen and examined Lying in bed with no distress with mother at bedside Pt said that she feels better this morning Denies any chest pain, palpitation, dizziness and SOB Objective Last 8 Hrs Date Time Temp Pulse Resp B/P (MAP) Pulse Ox O2 Delivery O2 Flow Rate FiO2 11/09/17 11:59 36.5 88 16 98 Room Air BiPAP 11/09/17 11:34 36.5 88 16 114/74 (87) 98 Room Air BiPAP 11/09/17 08:20 Room Air 11/09/17 07:58 36.6 88 16 113/79 (90) 97 Room Air Physical Exam: General- no acute distress Head- atraumatic Eyes- PERRL, EOMI ENT- oropharynx clear Neck- supple, no JVD Lungs- No wheezing, No rale Heart- regular Abdomen- normal bowel sounds, soft Extremities- no pretibial edema, no calf tenderness; Neuro- alert, oriented x 3; PERRL, EOMI Skin- warm & dry Laboratory Results: Last 24 Hours Test 11/09/17 08:23 Sodium Level 139 mmol/L Potassium Level 3.3 mmol/L Chloride Level 107 mmol/L Carbon Dioxide Level 22 mmol/L Anion Gap 10.0 mmol/L Blood Urea Nitrogen 8 mg/dl Creatinine 0.90 mg/dl Est Creatinine Clear Calc Drug Dose 78.2 ml/min Estimated GFR () 105.9 Estimated GFR (Non- 91.4 BUN/Creatinine Ratio 8.8 Random Glucose 108 mg/dl Calcium Level 9.0 mg/dl Assessment & Plan FLU LIKE SYMPTOMS INFLUENZA A Rapid Test negative Flu PCR positive On Tamiflu BID to complete 5 days Blood cx no growth CXR showed no acute process. Levaquin discontinued On chronic Bactrim Clinically improved ELECTROLYTES IMBALANCE replaced K Continue monitor electrolytes HISTORY OF RENAL TRANSPLANT continue Tacrolimus and Mycophenolate Nephrology on board Check tacrolimus trough in 1 week follow up with nephrology HYPERTENSION continue Amlodipine BP stable DVT Prophylaxis SCDs CODE STATUS Full Code Consultants: Nephrology Current Inpatient Medications: Current Inpatient Medications Medications (Trade) Dose Ordered Sig/Victor M Route Start Time Stop Time Status Last Admin Dose Admin Heparin Sodium (Porcine) (Heparin Sq 5000 Unit/0.5ml) 5,000 unit Q8 SQ 11/07/17 08:15 12/07/17 08:14 Ondansetron HCl (Zofran Inj) 4 mg Q6H PRN IV 11/07/17 00:00 12/07/17 00:00 Multivitamins (Multivitamin Tab) 1 tab DAILY PO 11/07/17 09:00 12/07/17 08:59 11/09/17 07:56 1 TAB Ondansetron HCl (Zofran Tab) 4 mg Q8 PRN PO 11/07/17 00:15 12/07/17 00:14 Tacrolimus (Prograf Cap) 8 mg BID PO 11/07/17 09:00 12/07/17 08:59 11/09/17 07:56 8 MG Triamcinolone Acetonide (Kenalog 0.1% Cream) 1 appln BID PRN EXT 11/07/17 00:15 12/07/17 00:14 Triamcinolone Acetonide (Nasacort Allergy 24hr) 2 sprays DAILY JUDIE 11/07/17 09:00 12/07/17 08:59 11/09/17 07:57 2 SPRAYS Trimethoprim/ Sulfamethoxazole (Septra 400/80MG Tab) 1 tab DAILY PO 11/07/17 09:00 12/07/17 08:59 11/09/17 07:55 1 TAB Amlodipine Besylate (Norvasc Tab) 10 mg DAILY PO 11/07/17 09:00 12/07/17 08:59 11/09/17 07:56 10 MG Magnesium Oxide (Mag-Ox Tab) 400 mg DAILY PO 11/07/17 09:00 12/07/17 08:59 11/09/17 07:56 400 MG Mycophenolate Sodium (Myfortic Tab) 360 mg BID PO 11/07/17 09:00 12/07/17 08:59 11/09/17 07:54 360 MG Miscellaneous Information (Order Awaiting Action) 1 ea QS N/A 11/07/17 08:00 12/07/17 07:59 Benzonatate (Tessalon Perles Cap) 100 mg TID PO 11/07/17 09:00 12/07/17 08:59 11/09/17 07:55 100 MG Acetaminophen (Tylenol Tab) 650 mg Q4H PRN PO 11/07/17 08:30 12/07/17 08:29 11/07/17 23:17 650 MG Potassium Chloride/Sodium Chloride 1,000 ml @ 80 mls/hr [id number] IV 11/07/17 09:30 12/07/17 09:29 11/09/17 04:43 80 MLS/HR Oseltamivir Phosphate (Tamiflu Cap) 75 mg BID PO 11/07/17 21:00 11/12/17 20:59 11/09/17 07:55 75 MG Tramadol HCl (Ultram Tab) 50 mg Q4H PRN PO 11/07/17 15:30 12/07/17 15:29 11/07/17 16:26 50 MG Guaifenesin (Organidin Nr Tab) 200 mg Q4H PRN PO 11/07/17 15:30 12/07/17 15:29 11/07/17 16:27 200 MG
[2017-11-09] MEDS ORDERED: GUAI1TAB68 PO (12:22)
[2017-11-09] MEDS ORDERED: TMF75 PO (12:22)
--- NOTE | 2017-11-09 12:42 | Discharge Instructions ---
Discharge Instructions Date of Service Nov 09, 2017. Admission Reason for Admission: Abn. Blood Electrolyte Level, Kidney Transplant St Discharge Discharge Diagnosis / Problem: Flu like symptoms, Influenza A Discharge Goals Goal(s): Decrease discomfort, Improve function, Improve disease control Activity Recommendations Activity Limitations: resume your previous activity (as tolerated) . Instructions / Follow-Up Instructions / Follow-Up Follow up with your primary care provider Dr. Valle on 11/14 @ 9:25 am Follow up with Nephrology Increase potassium intake in your diet Check BMP in 1 week with tacro trough as outpatient Complete Tamiflu course Avoid nephrotoxic agents Current Hospital Diet Patient's current hospital diet: Renal Diet Discharge Diet Recommended Diet: Renal Diet Pending Studies Studies pending at discharge: no Medical Emergencies . Who to Call and When: Medical Emergencies: If at any time you feel your situation is an emergency, please call 911 immediately. . Non-Emergent Contact Non-Emergency issues call your: Primary Care Provider Call Non-Emergent contact if: you have a fever, you have any medication questions . . "Provider Documentation" section prepared by Niko Blanchard. . VTE Core Measure Inpt VTE Proph given/why not?: SCD's
--- NOTE | 2017-11-11 19:08 | Discharge Summary ---
Discharge Summary Date of Service Nov 11, 2017. Discharge Summary Admission Date: Nov 06, 2017 at 23:57 Discharge Date: Nov 09, 2017 Discharge Disposition: Home Principal Diagnosis: Flu like symptoms, Influenza A Secondary Diagnoses/Problems: HISTORY OF RENAL TRANSPLANT HTN ELECTROLYTES IMBALANCE Procedures: [~ rep ct add3]] CHEST ONE VIEW PORTABLE HISTORY: cough, fever COMPARISON: Chest 10/30/2016. FINDINGS: The lungs are clear. Cardiac silhouette is normal in size. No pleural effusions. No pneumothorax. IMPRESSION: No acute process. Electronically signed by: Davin Lorenzo M.D. 11/06/2017 7:17 PM Dictated Date/Time: 11/06/2017 7:15 PM Consultations: Nephrology Medication Reconciliation New Medications: Guaifenesin (Organ-I Nr) 200 Mg Tab 200 MG PO Q8 PRN for cough for 5 Days, #15 TAB Oseltamivir Phosphate (Tamiflu) 75 Mg Cap 75 MG PO BID, #5 CAP Continued Medications: Amlodipine Besylate (Amlodipine Besylate) 10 Mg Tab 10 MG PO DAILY, #30 Control Pills ( Control Pills) Tab 1 TAB PO DAILY, TAB Chlorhexidine Gluconate (Mouth (Peridex Oral Soln) Unknown Strength Hue Unknown Dose MT BID PRN for DIRECTED, BTL Rinse mouth 4 times a day Magnesium Oxide (Mg Supplement (Mag-200) 200 Mg Tab 200 MG PO DAILY Multivitamin (Multivitamin) Tab 1 TAB PO DAILY, 0 Refills Mycophenolate Sodium (Myfortic) 180 Mg Tab 360 MG PO BID Ondansetron Hcl (Zofran) 4 Mg Tab 4 MG PO Q8 PRN for Nausea, TAB Penciclovir (Denavir) 1 % Cre 1 APPLN TOP Q2H PRN for cold sores Apply topically to affected area every 2 hours while awake, as needed for cold sores for 4 days. Tacrolimus (Prograf) 5 Mg Cap 5 MG PO BID, CAP TOTAL DOSE 8 MG, BID. Tacrolimus (Prograf) 1 Mg Cap 3 MG PO BID for 90 Days, #540 CAP 3 Refills TOTAL DOSE 8 MG, BID. Triamcinolone Acet (Aristocort 0.1%) 90 Appln/30 Gm Cr 1 APPLN TOP BID PRN for SKIN IMPAIRMENT Triamcinolone Acetonide (Nasal (Nasacort Allergy 24Hr) 55 Mcg/Act Spr 2 SPRAYS JUDIE DAILY Trimethoprim/Sulfamethoxazole (Bactrim 400MG/80MG) 1 Ea Tab 1 TAB PO DAILY, TAB Admission Information HPI (per Admitting provider): CHIEF COMPLAINT: Flu-like symptoms for the last 3 days with generalized weakness and nausea and fever. HISTORY OF PRESENT COMPLAINT: She is a 22-year-old female with significant past medical history of chronic renal insufficiency, status post living-related donor renal transplant on the right side, history of headache, amblyopia, anorexia, renal osteodystrophy, hyperparathyroidism, type 4 renal tubular acidosis, history of selective immunoglobulin deficiency and hypertension, apparently has been complaining of flu-like symptoms with cough, runny nose, fever, chills for the last 3 days. The condition worsened as of yesterday with nausea but no vomiting and/or diarrhea. She was feeling generally very weak and lethargic and dizzy, that is the reason she was brought into the Emergency Room for further evaluation. Does not have any increasing shortness of breath, does not have any problem with urine, does not have any swelling of the legs and does not have any weakness involving any side in particular. In the Emergency Room, she looked flushed and febrile, 39.3 degrees Fahrenheit, hemodynamically stable otherwise, and her electrolytes came back fairly abnormal. From that point, she was advised for admission to the hospital. Her flu tests were negative. Physical Exam (per Admitting): GENERAL: On examination in the Emergency Room, she was having some aches and pains and she looked flushed. VITAL SIGNS: Temperature 39.3, pulse was 94, blood pressure 125/79, saturation 95% on room air. HEENT: Unremarkable. NECK: Supple. No JVD, no bruit. CHEST: Clear to auscultation bilaterally. HEART: S1, S2, regular, no murmur. ABDOMEN: Soft, benign, nontender, no organomegaly. Bowel sounds present. EXTREMITIES: Negative for any edema. MUSCULOSKELETAL: Did not show any acute arthritis involving any joint. CENTRAL NERVOUS SYSTEM: Alert, awake, oriented x3. No focal sensory and/or motor deficit appreciated. Hospital Course FLU LIKE SYMPTOMS INFLUENZA A Rapid Test negative Flu PCR positive On Tamiflu BID to complete 5 days Blood cx no growth CXR showed no acute process. Levaquin discontinued On chronic Bactrim Clinically improved ELECTROLYTES IMBALANCE replaced K Continue monitor electrolytes HISTORY OF RENAL TRANSPLANT continue Tacrolimus and Mycophenolate Nephrology on board Check tacrolimus trough in 1 week follow up with nephrology HYPERTENSION continue Amlodipine BP stable DVT Prophylaxis SCDs CODE STATUS Full Code Total time spent on discharge = 35 minutes This includes examination of the patient, discharge planning, medication reconciliation, and communication with other providers. Discharge Instructions Discharge Instructions Date of Service Nov 09, 2017. Admission Reason for Admission: Abn. Blood Electrolyte Level, Kidney Transplant St Discharge Discharge Diagnosis / Problem: Flu like symptoms, Influenza A Discharge Goals Goal(s): Decrease discomfort, Improve function, Improve disease control Activity Recommendations Activity Limitations: resume your previous activity (as tolerated) . Instructions / Follow-Up Instructions / Follow-Up Follow up with your primary care provider Dr. Valle on 11/14 @ 9:25 am Follow up with Nephrology Increase potassium intake in your diet Check BMP in 1 week with tacro trough as outpatient Complete Tamiflu course Avoid nephrotoxic agents Current Hospital Diet Patient's current hospital diet: Renal Diet Discharge Diet Recommended Diet: Renal Diet Pending Studies Studies pending at discharge: no Medical Emergencies . Who to Call and When: Medical Emergencies: If at any time you feel your situation is an emergency, please call 911 immediately. . Non-Emergent Contact Non-Emergency issues call your: Primary Care Provider Call Non-Emergent contact if: you have a fever, you have any medication questions . . "Provider Documentation" section prepared by Niko Blanchard. . VTE Core Measure Inpt VTE Proph given/why not?: SCD's Additional Copies To Gio Valle M.D.
== END 2017-11-09 13:22 | disposition home or self-care (01) | DRG 865 ==
LOC: C.EDB 18:00 → C.2T 23:57 → ENRESERV 11-07 00:57
PROVIDERS: ADMIT Internal Medicine; ATTEND Internal Medicine
DX: J10.89 Influenza due to other identified influenza virus with other manifestations (principal); N18.6 End stage renal disease; Z94.0 Kidney transplant status; D80.9 Immunodeficiency with predominantly antibody defects, unspecified; J32.9 Chronic sinusitis, unspecified; D06.9 Carcinoma in situ of cervix, unspecified; I10 Essential (primary) hypertension; E87.6 Hypokalemia; E83.39 Other disorders of phosphorus metabolism; E86.0 Dehydration; K59.01 Slow transit constipation; Z84.1 Family history of disorders of kidney and ureter

== ENCOUNTER → 2017-11-18 | Outpatient (CLI) | payer OTHER ==
[~2017-11-18] MED LIST changes: +BCPILLS PO; +GUAI1TAB68 PO; +TACR1CAP PO; -TACR1CAP5 PO; +TACR5CAP PO; -TACR5CAP5 PO; +TMF75 PO; -TRIA0.1C20 TOP; -TRIA1SPR2 NAE; +TRIA1SPR4 NAE; +TRMCR130WC TOP
[2017-11-18 09:54] LABS: BLOOD UREA NITROGEN 14 mg/dl (7-18); CALCIUM 9.3 mg/dl (8.5-10.1); CARBON DIOXIDE 27 mmol/L (21-32); CREATININE 1.11 mg/dl (0.60-1.20); GLUCOSE 93 mg/dl (70-99); PHOSPHORUS 3.3 mg/dl (2.5-4.9); POTASSIUM 3.8 mmol/L (3.5-5.1); SODIUM 139 mmol/L (136-145)
[2017-11-21 12:57] LABS: FK506 TACROLIMUS HIGHLY SENS 9.2 MCG/L (5-20)
== END | disposition home or self-care (01) ==
LOC: C.LAB 07:41
PROVIDERS: ATTEND Internal Medicine Nephrology
DX: D89.9 Disorder involving the immune mechanism, unspecified (principal)

== ENCOUNTER → 2018-06-02 | Outpatient (CLI) | payer OTHER ==
[~2018-06-02] MED LIST changes: -GUAI1TAB68 PO; +ORG200 PO
[2018-06-02 09:50] LABS: ALBUMIN 4.2 gm/dl (3.4-5.0); BLOOD UREA NITROGEN 13 mg/dl (7-18); CALCIUM 9.4 mg/dl (8.5-10.1); CARBON DIOXIDE 27 mmol/L (21-32); CREATININE 1.41 mg/dl (0.60-1.20); GLUCOSE 84 mg/dl (70-99); PHOSPHORUS 3.1 mg/dl (2.5-4.9); POTASSIUM 3.8 mmol/L (3.5-5.1); SODIUM 140 mmol/L (136-145)
[2018-06-06 00:17] LABS: FK506 TACROLIMUS HIGHLY SENS 6.4 MCG/L (5-20)
== END | disposition home or self-care (01) ==
LOC: C.LAB1850 08:20
PROVIDERS: ATTEND Internal Medicine Nephrology
DX: Q61.5 Medullary cystic kidney (principal); Z94.0 Kidney transplant status

== ENCOUNTER 2019-09-05 18:52 | Inpatient (IN) ==
[2019-09-05] MEDS ORDERED: SODIUM CHLORIDE 0.9% 500 ML IV SCH (19:15)
[2019-09-05 19:24] LABS: Basophils # (auto) 0.04 K/uL (0-0.2); Basophils % (auto) 0.4 %; Eosinophils # (auto) 0.07 K/uL (0-0.5); Eosinophils % (auto) 0.6 %; Hematocrit (blood only) 40.4 % (37-47); Hemoglobin 14.5 g/dL (12.0-16.0); Immature Granulocytes # (auto) 0.02 K/uL (0.00-0.02); Immature Granulocytes % (auto) 0.2 %; Lymphocytes # (auto) 3.28 K/uL (1.2-3.4); Lymphocytes % (auto) 30.4 %; Mean Corpuscular Hemoglobin 31.9 pg (25-34); Mean Corpuscular Hgb Conc 35.9 g/dL (32-36); Mean Corpuscular Volume 88.8 fL (80-100); Mean Platelet Volume 10.7 fL (7.4-10.4); Monocytes # (auto) 0.69 K/uL (0.11-0.59); Monocytes % (auto) 6.4 %; Platelet Count 305 K/uL (130-400); RDW Coefficient of Variation 12.1 % (11.5-14.5); RDW Standard Deviation 38.8 fL (36.4-46.3); Red Blood Count 4.55 M/uL (4.2-5.4)
[2019-09-05 19:34] LABS: Appearance Urine Cloudy (Clear); Bacteria Urine Automated 2+ (Negative); Bilirubin Urine Negative (Negative); Blood Urine 2+ (Negative); Color Urine Yellow; Epithelial Cell Urine Auto >30 /lpf (0-5); Glucose Urine UA Negative (Negative); Ketones Urine Negative (Negative); Leukocyte Esterase Urine 2+ (Negative); Nitrite Urine Negative (Negative); Protein Urine Trace (Negative); Specific Gravity Urine 1.017 (1.000-1.030); Urobilinogen Urine Negative (Negative); WBC Urine Automated >30 /hpf (0-5)
[2019-09-05 19:42] LABS: Albumin Level 4.5 gm/dl (3.4-5.0); BUN Creatinine Ratio 15.6 (10-20); Calcium 9.9 mg/dl (8.5-10.1); Creatinine Clr Calc Pharmacy 50.9 ml/min; Est GFR (African American) 63.4; Est GFR (Non-African American) 54.7; Potassium 3.5 mmol/L (3.5-5.1)
[2019-09-05 19:45] LABS: Albumin Globulin Ratio 1.3 (0.9-2); Bilirubin,Total 0.5 mg/dl (0.2-1); Globulin 3.6 gm/dl (2.5-4.0); Total Protein 8.1 gm/dl (6.4-8.2)
--- NOTE | 2019-09-05 19:51 | CT Scan Report ---
CT abd pelvis wo con CT DOSE: 445.02 mGycm HISTORY: Pain left flank pain h/o transplant eval for SBO TECHNIQUE: Multiaxial CT images of the abdomen and pelvis were performed without contrast. A dose lo wering technique was utilized adhering to the principles of ALARA. COMPARISON STUDY: None. FINDINGS: Lung bases are clear. Liver spleen and pancreas appear unremarkable. Kidneys are atrophic. There is a right pelvic renal transplant. No evidence for hydronephrosis. Multiple surgical clips are identified in the setting of the renal hilar region. There is a small high density focus image 281 felt to be a low-lying surgical clip. Bowel pattern is nonobstructive. There is a 2 cm left ovarian cyst. There is a 2.2 cm right ovarian cyst. Uterus is anterior flexed. Bladder is relatively collapsed. There is no free fluid within the pelvic cul-de-sac or phalanx of the abdomen. IMPRESSION: 1. Nonobstructive bowel pattern. 2. Atrophic [place] negative kidneys with an unremarkable right renal pelvic transplant. 3. Bilateral ovarian cysts with measurements of 2 cm on the left and 2.2 cm on the right. The above report was generated using voice recognition software. It may contain grammatical, syntax or spelling errors. Electronically signed by: Dipak Ramirez M.D. 09/05/2019 7:50 PM
[2019-09-05] MEDS ORDERED: PROMETHAZINE HCL 12.5 MG in SODIUM CHLORIDE 0.9% 50 ML IV PRN (20:12)
[2019-09-05] MEDS ORDERED: HYDROmorphone INJ 0.5 MG/0.5 ML SYR IV PRN (20:12)
[2019-09-05] MEDS ORDERED: TRAMADOL HCL 50 MG TABLET PO PRN (20:13)
[2019-09-05 20:35] LABS: Magnesium 1.4 mg/dl (1.8-2.4)
[2019-09-05] MEDS ORDERED: METOPROLOL TARTRATE 1 MG/ML VIAL IV STA (20:36)
[2019-09-05] MEDS ORDERED: METOPROLOL TARTRATE 1 MG/ML VIAL IV ONE (20:40)
--- NOTE | 2019-09-05 20:51 | XRay Report ---
XR chest 1V portable CLINICAL HISTORY: renal failure COMPARISON STUDY: 11/06/2017 FINDINGS: The bones soft tissues and hemidiaphragms are normal. The cardiomediastinal silhouette is n ormal. The lungs are clear. The pulmonary vasculature is normal. IMPRESSION: Negative chest. The above report was generated using voice recognition software. It may contain grammatical, syntax or spelling errors. Electronically signed by: Dipak Ramirez M.D. 09/05/2019 8:49 PM
[2019-09-05] MEDS ORDERED: NON-FORMULARY MEDICATION (Bisoprolol Fumarate 5 MG) PO SCH (21:10)
--- NOTE | 2019-09-05 21:10 | History & Physical Report ---
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 -L flank pain and decreased appetite for past few days. Lipase of 1696. No evidence of abnormality to pancreas on CT abd/pelvis without contrast -Some alcohol use over the weekend with friends. Non-smoker -Aggressive IV fluid resuscitation, pain control, antiemetics, gallbladder ultrasound pending (2) UTI (urinary tract infection): UA abnormal with urine culture pending -See attending addendum for antibiotic details (3) Familial juvenile nephrophthisis: (4) Status post kidney transplant: History of R kidney transplant from mother in 2006 -Follows locally with Dr. Bess of [facility] nephro as well as Dr. Collazo of [place] transplant service -Continue Prograf and Myfortic -Monitor renal function closely- Cr up to 1.36 from baseline ~1.1-1.2 (5) HTN (hypertension): Hypertensive in ED at 151/101 and was given IV Lopressor -Continue home bisoprolol and amlodipine (6) Selective deficiency of IgG: Takes Bactrim as prophylaxis Code status: FULL PCP: Dr. Valle Patient seen in collaboration with Dr. Frye. Please see addendum. 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 Patient states that she first noted lower back pain a few days ago but attributed it to pain from working out. Also notes that her appetite was decreased from baseline for the past few days. Late last night, patient developed left flank pain that wrapped around to abdomen described as sharp and intermittent. Denies any fever, chills or nausea. No chest pain, shortness of breath, palpitations, dysuria, hematuria or diarrhea. Last bowel movement on Saturday. Has had increased anxiety lately due to having purchased a new car and some work stress. History of occasional wine use. Non-smoker. Follows with transplant team at [facility] and was recently evaluated by Dr. Collazo of transplant service. Has been taking medication as prescribed. Allergies Allergy/AdvReac Type Severity Reaction Status Date / Time hydromorphone [From Dilaudid] Allergy Mild Rash Verified 09/06/19 01:59 morphine AdvReac Unknown PSYCHOSIS Verified 09/05/19 19:53 Dust Mite Extract Allergy Mild . Uncoded 09/05/19 19:53 Home Medications Home Medications Medication Instructions Recorded Confirmed Type amlodipine 10 mg tablet 10 mg PO DAILY 07/25/19 09/05/19 History bisoprolol fumarate 5 mg tablet 5 mg PO HS 07/25/19 09/05/19 History magnesium oxide 400 mg (241.3 mg 200 mg PO HS tab 07/25/19 09/05/19 History magnesium) tablet multivitamin 1 tab PO DAILY 07/25/19 09/05/19 History mycophenolate sodium 180 mg 360 mg PO BID tab 07/25/19 09/05/19 History tablet,delayed release norethindrone (contraceptive) 0.35 0.35 mg PO DAILY 07/25/19 09/05/19 History mg tablet tacrolimus 1 mg capsule 3 mg PO BID cap 07/25/19 09/05/19 History tacrolimus 5 mg capsule 5 mg PO BID cap 07/25/19 09/05/19 History triamcinolone acetonide 55 mcg 1 sprays INTNAS DAILY 07/25/19 09/05/19 History nasal spray aerosol penciclovir 1 % TOPICAL Q2H 09/05/19 09/05/19 History sulfamethoxazole-trimethoprim 0.5 tab PO BID 09/05/19 09/05/19 History Past Med/Surg History Medical History End-stage renal failure with renal transplant (Resolved) Familial juvenile nephrophthisis (Chronic) H/O amblyopia (Chronic) HTN (hypertension) (Chronic) Renal osteodystrophy (Chronic) Secondary hyperparathyroidism (Chronic) Selective deficiency of IgG (Chronic) Short stature (Chronic) "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 Physical Exam Physical Exam: General Appearance: WD/WN, vitals as above, NAD, sitting up in bed, anxious, flushed, conversing easily Head: normocephalic, atraumatic Eyes: normal inspection, PERRL, conjunctivae normal, anicteric sclerae ENT: external ear and nose normal, oropharynx normal Neck: trachea midline, no thyromegaly normal visual inspection Respiratory: normal respiratory effort, lungs clear to auscultation, no wheeze, rales, rhonchi. Normal insp/exp effort, no accessory muscle use Cardiovascular: tachycardic rate, regular rhythm, no murmur, normal peripheral pulses. Vessels: no JVD or carotid bruit Chest: normal inspection of chest Abdomen/GI: normal bowel sounds, soft, TTP of L flank and epigastrium, no guarding, no hepatosplenomegaly Extremities/Musculoskelatal: no cyanosis or clubbing, extremities motor strength 5/5 Neurologic: PERRL, EOMI, accommodation nl, no face palsy, no dysarthria CN's I I-XI intact bilaterally and moves all extremities Psychiatric: A+Ox3, + anxious Skin: no rashes, normal color, warm/dry Results & Data Vital Signs (Past 12 Hours) Vital Signs Temp Pulse Pulse Resp BP BP Pulse Ox 09/05/19 20:41 98 H 151/101 H 09/05/19 20:38 98 H 151/101 H 09/05/19 20:21 104 H 20 176/116 H 98 09/05/19 18:54 36.6 C 112 H 18 158/116 H 98 Laboratory Results Short CBC 09/05/19 Range/Units 19:12 WBC 10.80 (4.8-10.8) K/uL Hgb 14.5 (12.0-16.0) g/dL Hct 40.4 (37-47) % Plt Count 305 (130-400) K/uL BMP 09/05/19 19:12 Sodium 139 Potassium 3.5 Chloride 103 Carbon Dioxide 25 BUN 21 H Creatinine 1.36 H Glucose 129 H Calcium 9.9 Liver Function 09/05/19 Range/Units 19:12 Total Bilirubin 0.5 (0.2-1) mg/dl AST 7 L (15-37) U/L ALT 13 (12-78) U/L Alkaline Phosphatase 65 (45-117) U/L Albumin 4.5 (3.4-5.0) gm/dl Urine 09/05/19 Range/Units 19:12 Urine Color Yellow Urine Appearance Cloudy A (Clear) Urine pH 7.0 (4.5-7.5) Ur Specific [place] 1.017 (1.000-1.030) Urine Protein Trace H (Negative) Urine Glucose (UA) Negative (Negative) Diagnostic Findings CXR: IMPRESSION: Negative chest. CT abd/pelvis: IMPRESSION: 1. Nonobstructive bowel pattern. 2. Atrophic [place] negative kidneys with an unremarkable right renal pelvic transplant. 3. Bilateral ovarian cysts with measurements of 2 cm on the left and 2.2 cm on the right. Supervising Physician Co-Signing Physician Notes IM ATTENDING : Patient seen and examined. History obtained from patient and records. Preceding documentation by Ms. Destini Pretty PA-C reviewed. FINAL ASSESSMENT AND PLAN as follows : Acute pancreatitis Rule out biliary etiology Hypertension elevated so discomfort Hypokalemia, ARF on CRI secondary to illness hx CKD History juvenile nephronophthisis status post kidney transplantation on antirejection regimen GMF Bowel rest, IVF, analgesia Gallbladder ultrasound GI consult RE pancreatitis (Patient requesting to be seen by [facility].) Facilitate home BP meds Replace potassium DVT prophylaxis. Heparin subcu Full code (1) UTI (urinary tract infection) Hematuria presence: without hematuria Urinary tract infection type: site unspecified Qualified Code(s): N39.0 - Urinary tract infection, site not specified (2) Acute pancreatitis Acute pancreatitis complication: unspecified Pancreatitis type: unspecified pancreatitis type Qualified Code(s): K85.90 - Acute pancreatitis without necrosis or infection, unspecified
[2019-09-05] MEDS ORDERED: TACROLIMUS 1 MG CAP PO SCH (21:15)
--- NOTE | 2019-09-05 21:40 | Emergency Department Note ---
Entered by Cliff Loo acting as a scribe for Tony Figueroa MD History of Present Illness General Chief complaint: Flank Pain Stated complaint: NAUSEA,LOSS OF APPETITE, SIDE AND BACK PAIN Time Seen by Provider: 09/05/19 18:57 Source: patient History of Present Illness Onset (ago): day(s) 1 Location: abdomen (majority of pain in left abdomen but some pain in right abdomen) Pain Consistency: + other (waxing and waning ) Maximum Pain Intensity: 6 Quality: + sharp Associated symptoms: + denies other symptoms (diarrhea, black stools, blood stools, vaginal discharge, and blood in urine), + loss of appetite, + nause a/vomiting (positive nausea, negative vomiting) and + other (back pain); no fever/chills The patient is a 24 year old F who presents to the Emergency Room with complaints of waxing and waning abdominal pain that started 1 day ago. The patie nt states that the majority of her pain is located in her left abdomen. She adds that she has some pain in her right back where the pain initially started. She describes her abdominal pain as sharp. She adds that laying down worsens her abdominal pain. She states that she has had abdominal pain in the past, but adds that it has never been this severe. She adds that her pain started in her right lower back but has now traveled to her left side. She notes that her back pain is intermittent and feels like pulled muscles. She states that she has experienced nausea and a loss of appetite, since Tuesday. She denies that she is currently experiencing fevers, vomiting, diarrhea, black stools, blood stools, abnormal vaginal discharge or bleeding, and blood in her urine. She also denies that there is any chance that she is currently . She states that she had a kidney transplant, 12 years ago, due to a family history of nephropathy. She notes that she is currently taking Prograf. She d enies a history of kidney stones. Home Medications Home Medications Medication Instructions Recorded Confirmed Type amlodipine 10 mg tablet 10 mg PO DAILY 07/25/19 09/05/19 History bisoprolol fumarate 5 mg tablet 5 mg PO HS 07/25/19 09/05/19 History magnesium oxide 400 mg (241.3 mg 200 mg PO HS tab 07/25/19 09/05/19 History magnesium) tablet multivitamin 1 tab PO DAILY 07/25/19 09/05/19 History mycophenolate sodium 180 mg 360 mg PO BID tab 07/25/19 09/05/19 History tablet,delayed release norethindrone (contraceptive) 0.35 0.35 mg PO DAILY 07/25/19 09/05/19 History mg tablet tacrolimus 1 mg capsule 3 mg PO BID cap 07/25/19 09/05/19 History tacrolimus 5 mg capsule 5 mg PO BID cap 07/25/19 09/05/19 History triamcinolone acetonide 55 mcg 1 sprays INTNAS DAILY 07/25/19 09/05/19 History nasal spray aerosol penciclovir 1 % TOPICAL Q2H 09/05/19 09/05/19 History sulfamethoxazole-trimethoprim 0.5 tab PO BID 09/05/19 09/05/19 History Allergies Allergy/AdvReac Type Severity Reaction Status Date / Time morphine AdvReac Unknown PSYCHOSIS Verified 09/05/19 19:53 Dust Mite Extract Allergy Mild . 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 and A total of 10 systems reviewed and were otherwise negative Physical Exam Vital Signs Vital Signs - 24 hr 09/05/19 18:54 09/05/19 20:21 09/05/19 20:38 Temperature 36.6 C Temperature Source Oral Pulse Rate 112 H Pulse Rate [Right Finger] 104 H 98 H Pulse Rhythm [Right Finger] Regular Pulse Strength [Right Finger] Normal Respiratory Rate 18 20 Respiratory Effort / Characteristics Non-Labored Non-Labored Spontaneous Respiratory Depth Normal Normal Respiratory Pattern Regular Blood Pressure 158/116 H Blood Pressure [Right Arm] 176/116 H 151/101 H Blood Pressure Mean 130 Blood Pressure Mean [Right Arm] 136 117 Blood Pressure Position [Right Arm] Sitting Pulse Oximetry 98 98 Oxygen Delivery Method Room Air Room Air Sepsis Recent Fever Within 48 Hours No Sepsis Action Taken by Nursing No Action Required 09/05/19 20:41 09/05/19 21:34 Temperature Temperature Source Pulse Rate 98 H Pulse Rate [Right Finger] 92 H Pulse Rhythm [Right Finger] Regular Pulse Strength [Right Finger] Respiratory Rate 20 Respiratory Effort / Characteristics Non-Labored Spontaneous Respiratory Depth Normal Respiratory Pattern Blood Pressure 151/101 H Blood Pressure [Right Arm] 142/97 H Blood Pressure Mean Blood Pressure Mean [Right Arm] 112 Blood Pressure Position [Right Arm] Pulse Oximetry Oxygen Delivery Method Sepsis Recent Fever Within 48 Hours Sepsis Action Taken by Nursing Constitutional: Vital signs reviewed. Eyes: Pupils are equal round reactive to light. Conjunctiva are noninjected. ENT: Pharynx is clear without erythema or exudate. Mucous membranes are moist. Neck supple without meningeal signs. Respiratory: Clear to auscultation bilaterally. Breath sounds are equal bilaterally. Cardiovascular: Regular rate and rhythm. No rubs or gallops. GI: Soft and nondistended. Left upper quadrant tenderness, no guarding. Bowel sounds are present. Musculoskeletal: No peripheral edema. No CVA tenderness. Integumentary: No cyanosis. Neurological: The patient is awake and alert. No focal deficits. Psychiatric: Normal affect. Course Course 1857: The patient was evaluated in room A12B. A complete history and physical exam was performed. 1999: I talked to the patient about her test results. The patient states that she drank about 4 alcoholic beverages on Tuesday, but not recently. She states that she does not normally drink heavily. She states that she does not need anything for pain. 2031: I reviewed the patient's case with Destini Pretty PA-C for Dr. Reji Frye [facility]. She will evaluate the patient for further management. Administered Medications Discontinued Medications Sodium Chloride (Nss) 500 mls @ 999 mls/hr IV .[id number] HARJINDER Stop: 09/05/19 19:45 Last Infusion: 09/05/19 19:56 Dose: 0 mls/hr Documented by: [id number] Admin: 09/05/19 19:11 Dose: 999 mls/hr Documented by: [id number] Metoprolol Tartrate (Lopressor) 2.5 mg IV NOW STA Stop: 09/05/19 20:37 Last Admin: 09/05/19 21:02 Dose: Not Given Documented by: [id number] Metoprolol Tartrate (Lopressor) Confirm Administered Dose 5 mg IV .[employer] ONE Stop: 09/05/19 20:41 Last Increment: 09/05/19 20:41 Dose: 2.5 mg Documented by: [id number] Medical Decision Making Differential Diagnosis Differential diagnosis includes: acute rejection, UTI, pyelonephritis, bowel ob struction, pancreatitis, gallstones Medical Records Attestation: I reviewed the patient's medical records. I did perform a limited focused review of portions of the patient's old chart on the electronic medical record. The patient has had no recent pertinent visits to this hospital. Home Medications Current Medication List: was personally reviewed by me Laboratory Data Attestation: I reviewed the patient's lab results. Result diagrams: 09/05/19 19:12 09/05/19 19:12 Lab Results 09/05/19 09/05/19 09/05/19 Range/Units 19:12 19:12 19:12 WBC 10.80 (4.8-10.8) K/uL RBC 4.55 (4.2-5.4) M/uL Hgb 14.5 (12.0-16.0) g/dL Hct 40.4 (37-47) % MCV 88.8 (80-100) fL MCH 31.9 (25-34) pg MCHC 35.9 (32-36) g/dL RDW Std Deviation 38.8 (36.4-46.3) fL RDW Coeff of Cj 12.1 (11.5-14.5) % Plt Count 305 (130-400) K/uL MPV 10.7 H (7.4-10.4) fL Immature Gran % (Auto) 0.2 % Neut % (Auto) 62.0 % Lymph % (Auto) 30.4 % [place] % (Auto) 6.4 % Eos % (Auto) 0.6 % Baso % (Auto) 0.4 % Immature Gran # (Auto) 0.02 (0.00-0.02) K/uL Neut # (Auto) 6.70 H (1.4-6.5) K/uL Lymph # (Auto) 3.28 (1.2-3.4) K/uL [place] # (Auto) 0.69 H (0.11-0.59) K/uL Eos # (Auto) 0.07 (0-0.5) K/uL Baso # (Auto) 0.04 (0-0.2) K/uL Sodium 139 (136-145) mmol/L Potassium 3.5 (3.5-5.1) mmol/L Chloride 103 (98-107) mmol/L Carbon Dioxide 25 (21-32) mmol/L Anion Gap 11.0 (3-11) BUN 21 H (7-18) mg/dl Creatinine 1.36 H (0.6-1.2) mg/dl Est Cr Clr Drug Dosing 50.9 ml/min Est GFR ( Amer) 63.4 Est GFR (Non-Af Amer) 54.7 BUN/Creatinine Ratio 15.6 (10-20) Glucose 129 H (70-99) mg/dl Calcium 9.9 (8.5-10.1) mg/dl Magnesium 1.4 L (1.8-2.4) mg/dl Total Bilirubin 0.5 (0.2-1) mg/dl AST 7 L (15-37) U/L ALT 13 (12-78) U/L Alkaline Phosphatase 65 (45-117) U/L Total Protein 8.1 (6.4-8.2) gm/dl Albumin 4.5 (3.4-5.0) gm/dl Globulin 3.6 (2.5-4.0) gm/dl Albumin/Globulin Ratio 1.3 (0.9-2) Lipase 1696 H (73-393) U/L Urine Color Yellow Urine Appearance Cloudy A (Clear) Urine pH 7.0 (4.5-7.5) Ur Specific [place] 1.017 (1.000-1.030) Urine Protein Trace H (Negative) Urine Glucose (UA) Negative (Negative) Urine Ketones Negative (Negative) Urine Blood 2+ H (Negative) Urine Nitrite Negative (Negative) Urine Bilirubin Negative (Negative) Urine Urobilinogen Negative (Negative) Ur Leukocyte Esterase 2+ H (Negative) Urine WBC (Auto) >30 H (0-5) /hpf Urine RBC (Auto) 5-10 H (0-4) /hpf U Hyaline Cast (Auto) 1-5 (0-5) /lpf U Epithel Cells (Auto) >30 H (0-5) /lpf Urine Bacteria (Auto) 2+ H (Negative) POC Ur Test (NEG) 09/05/19 09/05/19 Range/Units 19:12 19:12 WBC (4.8-10.8) K/uL RBC (4.2-5.4) M/uL Hgb (12.0-16.0) g/dL Hct (37-47) % MCV (80-100) fL MCH (25-34) pg MCHC (32-36) g/dL RDW Std Deviation (36.4-46.3) fL RDW Coeff of Cj (11.5-14.5) % Plt Count (130-400) K/uL MPV (7.4-10.4) fL Immature Gran % (Auto) % Neut % (Auto) % Lymph % (Auto) % [place] % (Auto) % Eos % (Auto) % Baso % (Auto) % Immature Gran # (Auto) (0.00-0.02) K/uL Neut # (Auto) (1.4-6.5) K/uL Lymph # (Auto) (1.2-3.4) K/uL [place] # (Auto) (0.11-0.59) K/uL Eos # (Auto) (0-0.5) K/uL Baso # (Auto) (0-0.2) K/uL Sodium (136-145) mmol/L Potassium (3.5-5.1) mmol/L Chloride (98-107) mmol/L Carbon Dioxide (21-32) mmol/L Anion Gap (3-11) BUN (7-18) mg/dl Creatinine (0.6-1.2) mg/dl Est Cr Clr Drug Dosing ml/min Est GFR ( Amer) Est GFR (Non-Af Amer) BUN/Creatinine Ratio (10-20) Glucose (70-99) mg/dl Calcium (8.5-10.1) mg/dl Magnesium Cancelled (1.8-2.4) mg/dl Total Bilirubin (0.2-1) mg/dl AST (15-37) U/L ALT (12-78) U/L Alkaline Phosphatase (45-117) U/L Total Protein (6.4-8.2) gm/dl Albumin (3.4-5.0) gm/dl Globulin (2.5-4.0) gm/dl Albumin/Globulin Ratio (0.9-2) Lipase (73-393) U/L Urine Color Urine Appearance (Clear) Urine pH (4.5-7.5) Ur Specific [place] (1.000-1.030) Urine Protein (Negative) Urine Glucose (UA) (Negative) Urine Ketones (Negative) Urine Blood (Negative) Urine Nitrite (Negative) Urine Bilirubin (Negative) Urine Urobilinogen (Negative) Ur Leukocyte Esterase (Negative) Urine WBC (Auto) (0-5) /hpf Urine RBC (Auto) (0-4) /hpf U Hyaline Cast (Auto) (0-5) /lpf U Epithel Cells (Auto) (0-5) /lpf Urine Bacteria (Auto) (Negative) POC Ur Test NEG (NEG) Imaging Data Radiologist's Impression: Radiology results as stated below per my review and the radiologist's interpretation: CT abd pelvis wo con CT DOSE: 445.02 mGycm HISTORY: Pain left flank pain h/o transplant eval for SBO TECHNIQUE: Multiaxial CT images of the abdomen and pelvis were performed without contrast. A dose lowering technique was utilized adhering to the principles of ALARA. COMPARISON STUDY: None. FINDINGS: Lung bases are clear. Liver spleen and pancreas appear unremarkable. Kidneys are atrophic. There is a right pelvic renal transplant. No evidence for hydronephrosis. Multiple surgical clips are identified in the setting of the renal hilar region. There is a small high density focus image 281 felt to be a low-lying surgical clip. Bowel pattern is nonobstructive. There is a 2 cm left ovarian cyst. There is a 2.2 cm right ovarian cyst. Uterus is anterior flexed. Bladder is relatively collapsed. There is no free fluid within the pelvic cul-de-sac or phalanx of the abdomen. IMPRESSION: 1. Nonobstructive bowel pattern. 2. Atrophic [place] negative kidneys with an unremarkable right renal pelvic transplant. 3. Bilateral ovarian cysts with measurements of 2 cm on the left and 2.2 cm on the right. The above report was generated using voice recognition software. It may contain grammatical, syntax or spelling errors. Electronically signed by: Dipak Ramirez M.D. 09/05/2019 7:50 PM Blood Pressure Blood Pressure Findings: Elevated blood pressure Blood Pressure Disposition: further management by hospitalist URIAH Narrative I did evaluate the patient as noted above. Patient is presenting with left- sided abdominal pain. She started initially having left lower back pain and is now moved to the left side. She has some left upper quadrant tenderness but no rebound or guarding. IV access was established. I did treated with normal saline IV. She declined any pain or nausea medication. I did order a urine analysis. She does have evidence of a UTI but she does have epithelial cells. Urine culture was sent. I did order and review the patient's blood work as noted in the electronic medical record. Her white count is slightly elevated. Creatinine is 1.3. Lipase is over 1600. I did order a CT of the abdomen and pelvis. I did review the images myself as well as the radiology report as described above. There is no evidence of acute abnormality on CT. She does have bilateral ovarian cysts. I did discuss the test results with the patient. I did recommend hospitalization for further care and evaluation. I did discuss case with the hospitalist and casework specialist. Impression & Plan Acute pancreatitis, UTI (urinary tract infection), History of kidney transplant, Immunocompromised patient Discharge Plan Visit Data Chief Complaint: Flank Pain Stated Complaint: NAUSEA,LOSS OF APPETITE, SIDE AND BACK PAIN ED Provider: Tony Figueroa Discharge Problem: Acute pancreatitis, UTI (urinary tract infection), History of kidney transplant, Immunocompromised patient Patient Disposition: Admitted As Inpatient Forms Stand Alone Forms: My [facility] Prescriptions Prescriptions: No Action amlodipine 10 mg tablet 10 mg PO DAILY RF: 0 bisoprolol fumarate 5 mg tablet 5 mg PO HS RF: 0 norethindrone (contraceptive) [Lucia] 0.35 mg tablet 0.35 mg PO DAILY RF: 0 magnesium oxide 400 mg (241.3 mg magnesium) tablet 200 mg PO HS RF: 0 multivitamin tablet 1 tab PO DAILY RF: 0 mycophenolate sodium 180 mg tablet,delayed release (DR/EC) 360 mg PO BID RF: 0 triamcinolone acetonide 55 mcg aerosol,spray 1 sprays INTNAS DAILY RF: 0 tacrolimus [Prograf] 1 mg capsule 3 mg PO BID RF: 0 tacrolimus 5 mg capsule 5 mg PO BID RF: 0 sulfamethoxazole-trimethoprim 400-80 mg Tablet 0.5 tab PO BID RF: 0 penciclovir 1 % Cream 1 % TOPICAL Q2H RF: 0 Referrals Referrals: Gio Valle MD [Primary Care Provider] - Discharge Problem: Acute pancreatitis Qualifiers: Pancreatitis type: unspecified pancreatitis type Acute pancreatitis c omplication: unspecified Qualified Code(s): K85.90 - Acute pancreatitis without necrosis or infection, unspecified UTI (urinary tract infection) Qualifiers: Urinary tract infection type: site unspecified Hematuria presence: without hematuria Qualified Code(s): N39.0 - Urinary tract infection, site not specified The scribe's documentation has been prepared under my direction and personally reviewed by me in its entirety. I confirm that the note above accurately reflects all work, treatment, procedures, and medical decision making performed by me.
--- NOTE | 2019-09-05 22:27 | Ultrasound Report ---
US gallbladder HISTORY: Pain. Nausea. abd pain COMPARISON: CT examination same date FINDINGS: Trace gallbladder sludge. 3 mm gallbladder polyp. No shadowing gallstones. The common bile duct measu res 4 mm. Right kidney is atrophic. There is no evidence for renal hydronephrosis. IMPRESSION: 1. Trace amount of gallbladder sludge and/or small gallbladder polyp. 2. Normal caliber biliary ductal system. 3. Atrophic right kidney. The above report was generated using voice recognition software. It may contain grammatical, syntax or spelling errors. Electronically signed by: Dipak Ramirez M.D. 09/05/2019 10:25 PM
[2019-09-05] MEDS ORDERED: LORazepam 0.25 MG/0.5 ML VIAL IV PRN (22:56)
[2019-09-05] MEDS: LACTATED RINGER'S 1,000 ML IV SCH (23:54)
[2019-09-05] MEDS: MAGNESIUM SULFATE / D5W 1 GM/100 ML BAG IV SCH (23:54)
[2019-09-05] MEDS: HEPARIN SOD 5,000 UNIT/0.5 ML VIAL SQ SCH (23:56)
[2019-09-05] MEDS: MYCOPHENOLATE SODIUM 180 MG TAB PO SCH (23:59)
[2019-09-06] MEDS: MAGNESIUM SULFATE / D5W 1 GM/100 ML BAG IV SCH ×2 (00:45→01:38)
[2019-09-06] MEDS ORDERED: LORATADINE 10 MG TAB PO ONE (01:58)
[2019-09-06] MEDS: LACTATED RINGER'S 1,000 ML IV SCH ×2 (04:34→09:21)
[2019-09-06] MEDS: HEPARIN SOD 5,000 UNIT/0.5 ML VIAL SQ SCH ×3 (04:35→21:19)
[2019-09-06 06:44] LABS: Basophils # (auto) 0.02 K/uL (0-0.2); Basophils % (auto) 0.3 %; Eosinophils # (auto) 0.07 K/uL (0-0.5); Hematocrit (blood only) 39.9 % (37-47); Immature Granulocytes # (auto) 0.01 K/uL (0.00-0.02); Immature Granulocytes % (auto) 0.1 %; Lymphocytes # (auto) 2.85 K/uL (1.2-3.4); Lymphocytes % (auto) 41.3 %; Mean Corpuscular Hemoglobin 31.8 pg (25-34); Mean Corpuscular Hgb Conc 35.1 g/dL (32-36); Mean Corpuscular Volume 90.7 fL (80-100); Mean Platelet Volume 10.1 fL (7.4-10.4); Monocytes # (auto) 0.42 K/uL (0.11-0.59); Monocytes % (auto) 6.1 %; Neutrophils # (auto) 3.53 K/uL (1.4-6.5); Neutrophils % (auto) 51.2 %; Platelet Count 269 K/uL (130-400); RDW Coefficient of Variation 12.1 % (11.5-14.5); RDW Standard Deviation 40.1 fL (36.4-46.3)
[2019-09-06 07:23] LABS: Albumin Globulin Ratio 1.3 (0.9-2); Albumin Level 4.3 gm/dl (3.4-5.0); BUN Creatinine Ratio 13.2 (10-20); Bilirubin,Total 0.7 mg/dl (0.2-1); Calcium 9.5 mg/dl (8.5-10.1); Creatinine Clr Calc Pharmacy 66.5 ml/min; Est GFR (African American) 87.7; Est GFR (Non-African American) 75.7; Globulin 3.3 gm/dl (2.5-4.0); Magnesium 2.3 mg/dl (1.8-2.4); Potassium 3.3 mmol/L (3.5-5.1); Total Protein 7.6 gm/dl (6.4-8.2)
[2019-09-06] MEDS: ACETAMINOPHEN 325 MG TAB PO PRN ×2 (07:54→16:08)
[2019-09-06] MEDS: AMLODIPINE BESYLATE 5 MG TAB PO SCH (09:22)
[2019-09-06] MEDS: MYCOPHENOLATE SODIUM 180 MG TAB PO SCH ×2 (09:22→20:01)
[2019-09-06] MEDS: MULTIVITAMIN TAB PO SCH (09:22)
[2019-09-06] MEDS: TACROLIMUS 1 MG CAP PO SCH ×3 (09:22→20:01)
[2019-09-06] MEDS: SULFA/TRIMETH 400/80MG TAB PO SCH ×2 (09:23→20:00)
[2019-09-06] MEDS ORDERED: cefTRIAXone SODIUM 1,000 MG in DEXTROSE 5% 50 ML IV SCH (12:00)
[2019-09-06] MEDS: NSS + 20MEQ KCL 20 MEQ/1,000 ML BAG IV SCH ×2 (12:41→23:55)
--- NOTE | 2019-09-06 14:49 | Hospitalist Progress Note ---
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 -L flank pain and decreased appetite for past few days. Lipase of 1696. No evidence of abnormality to pancreas on CT abd/pelvis without contrast -Some alcohol use over the weekend with friends. Non-smoker -Ultrasound of the gallbladder did not show any gallstones -Not having any vomiting and her abdominal distention -May have mild pancreatitis -Will start full liquid diet and decrease IV fluid -We will check lipase tomorrow (2) UTI (urinary tract infection): UA abnormal with urine culture pending Did have left flank and renal angle pain with frequency and that UA is a suggestive of infection Will start intravenous ceftriaxone for that Await culture to determine the use of specific antibiotic (3) Familial juvenile nephrophthisis: Renal angle pain could be secondary to nephrolithiasis (4) Status post kidney transplant: History of R kidney transplant from mother in 2006 -Follows locally with Dr. Bess of [facility] nephro as well as Dr. Collazo of [place] transplant service -Continue Prograf and Myfortic -Monitor renal function closely- Cr up to 1.36 from baseline ~1.1-1.2 -As long as kidney function remains stable we will hold off any nephrology consult (5) HTN (hypertension): Hypertensive in ED at 151/101 and was given IV Lopressor -Continue home bisoprolol and amlodipine (6) Selective deficiency of IgG: Takes Bactrim as prophylaxis Code status: FULL PCP: Dr. Valle Discussed with the parents in detail Subjective 09/06 The patient was seen and examined in medical floor in presence of the parents She has been complaining of back pain more towards the left side for the last day or 2 The pain seems to be colicky in nature and associated with nausea but no vomiting and/or distention of the abdomen She denies any fever and/or chills but still complains to have some left-sided abdominal pain and back pain Denies any chest pain, palpitation, shortness of breath, any numbness or tingling involving any of the extremities Review of Systems Review of Systems: All systems reviewed and are unremarkable except as noted below Gastrointestinal: + abdominal pain and + nausea; no bloating and no vomiting Mid abdomen and at the back of the left side Genitourinary: Denies any dysuria but has frequent Physical Exam Physical Exam: Lying in bed anxious with some discomfort due to abdominal pain Constitutional: + acute distress (Minimal discomfort due to abdominal pain), + ill appearing and + thin Eyes: PERRL, conjunctivae normal, anicteric sclerae ENMT: external ear and nose normal, oropharynx normal Neck: trachea midline, no thyromegaly Respiratory: normal respiratory effort; no respiratory distress Auscultation: lungs clear to auscultation bilaterally Cardiovascular: Rate/Rhythm: regular rate and regular rhythm Heart Sounds: no murmur Gastrointestinal (Abdomen): Inspection/Auscultation: abdomen normal to inspection; abdomen not distended Percussion/Palpation: + abdomen tender (Mildly tender in the left renal angle) and abdomen soft; no guarding Musculoskeletal: No acute arthritis in any of the joints Neurologic: moves all extremities; no focal motor deficits Lymphatic: no cervical or axillary lymphadenopathy Results & Data Vital Signs (Past 12 Hours) Vital Signs Temp Pulse Resp BP Pulse Ox 09/06/19 07:28 36.7 C 91 H 18 133/89 96 Laboratory Results Short CBC 09/05/19 09/06/19 Range/Units 19:12 06:27 WBC 10.80 6.90 (4.8-10.8) K/uL Hgb 14.5 14.0 (12.0-16.0) g/dL Hct 40.4 39.9 (37-47) % Plt Count 305 269 (130-400) K/uL BMP 09/05/19 09/06/19 19:12 06:27 Sodium 139 140 Potassium 3.5 3.3 L Chloride 103 106 Carbon Dioxide 25 28 BUN 21 H 14 Creatinine 1.36 H 1.04 Glucose 129 H 87 Calcium 9.9 9.5 Liver Function 09/05/19 09/06/19 Range/Units 19:12 06:27 Total Bilirubin 0.5 0.7 (0.2-1) mg/dl AST 7 L 6 L (15-37) U/L ALT 13 11 L (12-78) U/L Alkaline Phosphatase 65 60 (45-117) U/L Albumin 4.5 4.3 (3.4-5.0) gm/dl Urine 09/05/19 Range/Units 19:12 Urine Color Yellow Urine Appearance Cloudy A (Clear) Urine pH 7.0 (4.5-7.5) Ur Specific [place] 1.017 (1.000-1.030) Urine Protein Trace H (Negative) Urine Glucose (UA) Negative (Negative) Medications Administered Current Inpatient Medications Acetaminophen (Tylenol) 650 mg PO Q4H PRN PRN Reason: pain/fever Stop: 10/05/19 22:55 Last Admin: 09/06/19 07:54 Dose: 650 mg Documented by: Amlodipine Besylate (Norvasc) 10 mg PO DAILY [facility] Stop: 10/06/19 08:59 Last Admin: 09/06/19 09:22 Dose: 10 mg Documented by: Heparin Sodium (Porcine) (Heparin Sodium (Porcine)) 5,000 units SQ Q8 [facility] Stop: 10/05/19 22:55 Last Admin: 09/06/19 12:42 Dose: Not Given Documented by: Promethazine HCl 12.5 mg/ (Sodium Chloride) 50.5 mls @ 202 mls/hr IV Q6H PRN PRN Reason: Nausea And Vomiting Stop: 10/05/19 20:11 Last Infusion: 09/06/19 08:40 Dose: Infused Documented by: Lorazepam (Ativan) 0.25 mg in 0.5 mls @ 0.5 mls/min IV Q4H PRN PRN Reason: Anxiety Stop: 10/05/19 22:55 Ceftriaxone Sodium 1,000 mg/ (Dextrose) 60 mls @ 100 mls/hr IV Q24H [facility]; Protocol Stop: 09/11/19 11:59 Last Infusion: 09/06/19 13:24 Dose: Infused Documented by: Potassium Chloride/Sodium Chloride (Normal Saline W/20 Meq Kcl) 20 meq in 1,000 mls @ 80 mls/hr IV .[id number] [facility] Stop: 09/08/19 00:44 Last Admin: 09/06/19 12:41 Dose: 80 mls/hr Documented by: Miscellaneous (Order Awaiting Action) 1 ea N/A QS [facility] Stop: 10/05/19 23:29 Last Admin: 09/06/19 07:55 Dose: Not Given Documented by: Miscellaneous (Order Awaiting Action) 1 ea N/A QS [facility] Stop: 10/05/19 23:14 Last Admin: 09/06/19 07:55 Dose: Not Given Documented by: Multivitamins (Multivitamin Tab) 1 tab PO DAILY [facility] Stop: 10/06/19 08:59 Last Admin: 09/06/19 09:22 Dose: 1 tab Documented by: Mycophenolate Sodium (Myfortic) 360 mg PO BID [facility] Stop: 10/05/19 22:59 Last Admin: 09/06/19 09:22 Dose: 360 mg Documented by: Tacrolimus (Prograf) 8 mg PO BID [facility] Stop: 10/05/19 21:14 Last Admin: 09/06/19 09:22 Dose: 8 mg Documented by: Tramadol HCl (Ultram) 25 mg PO Q4H PRN PRN Reason: Pain Stop: 10/05/19 20:12 Last Admin: 09/06/19 04:39 Dose: 25 mg Documented by: Trimethoprim/Sulfamethoxazole (Septra 400/80mg Tab) 0.5 tab PO BID [facility] Stop: 10/06/19 08:59 Last Admin: 09/06/19 09:23 Dose: 0.5 tab Documented by: (1) Acute pancreatitis Acute pancreatitis complication: unspecified Pancreatitis type: unspecified pancreatitis type Qualified Code(s): K85.90 - Acute pancreatitis without necrosis or infection, unspecified (2) UTI (urinary tract infection) Hematuria presence: without hematuria Urinary tract infection type: site unspecified Qualified Code(s): N39.0 - Urinary tract infection, site not specified
[2019-09-07 05:54] LABS: Basophils # (auto) 0.02 K/uL (0-0.2); Basophils % (auto) 0.3 %; Eosinophils # (auto) 0.09 K/uL (0-0.5); Eosinophils % (auto) 1.6 %; Hematocrit (blood only) 38.1 % (37-47); Hemoglobin 13.3 g/dL (12.0-16.0); Lymphocytes # (auto) 2.71 K/uL (1.2-3.4); Lymphocytes % (auto) 47.4 %; Mean Corpuscular Hemoglobin 31.5 pg (25-34); Mean Corpuscular Hgb Conc 34.9 g/dL (32-36); Mean Corpuscular Volume 90.3 fL (80-100); Mean Platelet Volume 10.4 fL (7.4-10.4); Monocytes # (auto) 0.34 K/uL (0.11-0.59); Monocytes % (auto) 5.9 %; Neutrophils # (auto) 2.56 K/uL (1.4-6.5); Neutrophils % (auto) 44.8 %; Platelet Count 223 K/uL (130-400); RDW Coefficient of Variation 12.3 % (11.5-14.5); RDW Standard Deviation 40.4 fL (36.4-46.3); Red Blood Count 4.22 M/uL (4.2-5.4); White Blood Count 5.72 K/uL (4.8-10.8)
[2019-09-07] MEDS: HEPARIN SOD 5,000 UNIT/0.5 ML VIAL SQ SCH (06:07)
[2019-09-07 06:24] LABS: BUN Creatinine Ratio 10.7 (10-20); Calcium 9.1 mg/dl (8.5-10.1); Creatinine Clr Calc Pharmacy 60.7 ml/min; Est GFR (African American) 78.5; Est GFR (Non-African American) 67.7; Potassium 3.7 mmol/L (3.5-5.1)
[2019-09-07 07:18] VITALS: PULSE 92; TEMP 97.7; O2SAT 94
[2019-09-07] MEDS: MULTIVITAMIN TAB PO SCH (08:36)
[2019-09-07] MEDS: AMLODIPINE BESYLATE 5 MG TAB PO SCH (08:36)
[2019-09-07] MEDS: SULFA/TRIMETH 400/80MG TAB PO SCH (08:37)
[2019-09-07] MEDS: TACROLIMUS 1 MG CAP PO SCH (08:37)
[2019-09-07] MEDS: MYCOPHENOLATE SODIUM 180 MG TAB PO SCH (08:37)
[2019-09-07] MEDS ORDERED: BISOPROLOL FUMARATE PO SCH (09:00)
[2019-09-07] MEDS ORDERED: PATIENT'S OWN ORAL CONTRACEPTIVE PO SCH (09:00)
[2019-09-07] MEDS ORDERED: Nursing to Pharmacy Communication ONE (10:16)
--- NOTE | 2019-09-07 11:27 | Hospitalist Progress Note ---
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 -L flank pain and decreased appetite for past few days. Lipase of 1696. No evidence of abnormality to pancreas on CT abd/pelvis without contrast -Some alcohol use over the weekend with friends. Non-smoker -Ultrasound of the gallbladder did not show any gallstones -Not having any vomiting and her abdominal distention -May have mild pancreatitis -Will start full liquid diet and decrease IV fluid -Tolerated regular diet and remained afebrile with normal white count -Lipase has been normalized -She is much better and without any symptoms -Will be discharged home this afternoon (2) UTI (urinary tract infection): UA abnormal with urine culture pending Did have left flank and renal angle pain with frequency and that UA is a suggestive of infection Will start intravenous ceftriaxone for that Await culture to determine the use of specific antibiotic Urine grew 3 different kinds of organisms We will treated with oral Keflex for 3 days in total (3) Familial juvenile nephrophthisis: Renal angle pain could be secondary to nephrolithiasis Renal angle pain is much better (4) Status post kidney transplant: History of R kidney transplant from mother in 2006 -Follows locally with Dr. Bess of [facility] nephro as well as Dr. Collazo of [place] transplant service -Continue Prograf and Myfortic -Monitor renal function closely- Cr up to 1.36 from baseline ~1.1-1.2 -As long as kidney function remains stable we will hold off any nephrology consult -Kidney function has been normalized (5) HTN (hypertension): Hypertensive in ED at 151/101 and was given IV Lopressor -Continue home bisoprolol and amlodipine (6) Selective deficiency of IgG: Takes Bactrim as prophylaxis Code status: FULL PCP: Dr. Valle Discussed with the parents in detail She will be discharged home this afternoon Subjective 09/06 The patient was seen and examined in medical floor in presence of the parents She has been complaining of back pain more towards the left side for the last day or 2 The pain seems to be colicky in nature and associated with nausea but no vomiting and/or distention of the abdomen She denies any fever and/or chills but still complains to have some left-sided abdominal pain and back pain Denies any chest pain, palpitation, shortness of breath, any numbness or tingling involving any of the extremities 09/07 The patient was seen and examined in medical floor She has been feeling a lot better today She has minimal left loin pain without any abdominal distention, nausea and/or vomiting No fever and/or chills Will be discharged home this afternoon Review of Systems Review of Systems: All systems reviewed and are unremarkable except as noted below Gastrointestinal: + abdominal pain (Very minimal in the left renal angle); no bloating, no nausea and no vomiting Mid abdomen and at the back of the left side Genitourinary: Denies any dysuria but has frequent Physical Exam Physical Exam: Lying in bed comfortably Constitutional: + thin; no acute distress Eyes: PERRL, conjunctivae normal, anicteric sclerae ENMT: external ear and nose normal, oropharynx normal Neck: trachea midline, no thyromegaly Respiratory: normal respiratory effort; no respiratory distress Auscultation: lungs clear to auscultation bilaterally Cardiovascular: Rate/Rhythm: regular rate and regular rhythm Heart Sounds: no murmur Gastrointestinal (Abdomen): Inspection/Auscultation: abdomen normal to inspection; abdomen not distended Percussion/Palpation: + abdomen tender (Mildly tender in the left renal angle-almost gone) and abdomen soft; no guarding Neurologic: moves all extremities; no focal motor deficits Lymphatic: no cervical or axillary lymphadenopathy Results & Data Vital Signs (Past 12 Hours) Vital Signs Temp Pulse Resp BP Pulse Ox 09/07/19 07:18 36.5 C 92 H 16 129/76 94 09/06/19 23:54 36.6 C 80 17 125/90 96 Laboratory Results Short CBC 09/07/19 Range/Units 05:35 WBC 5.72 (4.8-10.8) K/uL Hgb 13.3 (12.0-16.0) g/dL Hct 38.1 (37-47) % Plt Count 223 (130-400) K/uL BMP 09/07/19 05:35 Sodium 141 Potassium 3.7 Chloride 109 H Carbon Dioxide 25 BUN 12 Creatinine 1.14 Glucose 82 Calcium 9.1 Medications Administered Current Inpatient Medications Acetaminophen (Tylenol) 650 mg PO Q4H PRN PRN Reason: pain/fever Stop: 10/05/19 22:55 Last Admin: 09/06/19 16:08 Dose: 650 mg Documented by: Amlodipine Besylate (Norvasc) 10 mg PO DAILY [facility] Stop: 10/06/19 08:59 Last Admin: 09/07/19 08:36 Dose: 10 mg Documented by: Bisoprolol Fumarate (Bisoprolol Fumarate) 5 ea PO DAILY [facility]; Protocol Stop: 10/07/19 08:59 Cephalexin HCl (Keflex) 250 mg PO TID [facility] Stop: 09/12/19 13:59 Heparin Sodium (Porcine) (Heparin Sodium (Porcine)) 5,000 units SQ Q8 [facility] Stop: 10/05/19 22:55 Last Admin: 09/07/19 06:07 Dose: Not Given Documented by: Promethazine HCl 12.5 mg/ (Sodium Chloride) 50.5 mls @ 202 mls/hr IV Q6H PRN PRN Reason: Nausea And Vomiting Stop: 10/05/19 20:11 Last Infusion: 09/06/19 08:40 Dose: Infused Documented by: Lorazepam (Ativan) 0.25 mg in 0.5 mls @ 0.5 mls/min IV Q4H PRN PRN Reason: Anxiety Stop: 10/05/19 22:55 Potassium Chloride/Sodium Chloride (Normal Saline W/20 Meq Kcl) 20 meq in 1,000 mls @ 80 mls/hr IV .[id number] [facility] Stop: 09/08/19 00:44 Last Admin: 09/06/19 23:55 Dose: 80 mls/hr Documented by: Miscellaneous (Patient's Own Oral Contraceptive) 1 ea PO DAILY [facility] Stop: 10/07/19 08:59 Last Admin: 09/07/19 08:39 Dose: 1 ea Documented by: Multivitamins (Multivitamin Tab) 1 tab PO DAILY [facility] Stop: 10/06/19 08:59 Last Admin: 09/07/19 08:36 Dose: 1 tab Documented by: Mycophenolate Sodium (Myfortic) 360 mg PO BID [facility] Stop: 10/05/19 22:59 Last Admin: 09/07/19 08:37 Dose: 360 mg Documented by: Tacrolimus (Prograf) 8 mg PO BID [facility] Stop: 10/05/19 21:14 Last Admin: 09/07/19 08:37 Dose: 8 mg Documented by: Tramadol HCl (Ultram) 25 mg PO Q4H PRN PRN Reason: Pain Stop: 10/05/19 20:12 Last Admin: 09/06/19 04:39 Dose: 25 mg Documented by: Trimethoprim/Sulfamethoxazole (Septra 400/80mg Tab) 0.5 tab PO BID [facility] Stop: 10/06/19 08:59 Last Admin: 09/07/19 08:37 Dose: 0.5 tab Documented by: (1) Acute pancreatitis Acute pancreatitis complication: unspecified Pancreatitis type: unspecified pancreatitis type Qualified Code(s): K85.90 - Acute pancreatitis without necrosis or infection, unspecified (2) UTI (urinary tract infection) Hematuria presence: without hematuria Urinary tract infection type: site unspecified Qualified Code(s): N39.0 - Urinary tract infection, site not specified
[2019-09-07 12:49] VITALS: BP 126/88
[2019-09-07] MEDS ORDERED: cephALEXin 250 MG CAP PO SCH (14:00)
--- NOTE | 2019-09-08 08:06 | Discharge Summary ---
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 Patient states that she first noted lower back pain a few days ago but attributed it to pain from working out. Also notes that her appetite was decreased from baseline for the past few days. Late last night, patient developed left flank pain that wrapped around to abdomen described as sharp and intermittent. Denies any fever, chills or nausea. No chest pain, shortness of breath, palpitations, dysuria, hematuria or diarrhea. Last bowel movement on Tuesday. Has had increased anxiety lately due to having purchased a new car and some work stress. History of occasional wine use. Non-smoker. Follows with transplant team at [facility] and was recently evaluated by Dr. Collazo of transplant service. Has been taking medication as prescribed. Admission Exam Per Admitting Provider Physical Exam: General Appearance: WD/WN, vitals as above, NAD, sitting up in bed, anxious, flushed, conversing easily Head: normocephalic, atraumatic Eyes: normal inspection, PERRL, conjunctivae normal, anicteric sclerae ENT: external ear and nose normal, oropharynx normal Neck: trachea midline, no thyromegaly normal visual inspection Respiratory: normal respiratory effort, lungs clear to auscultation, no wheeze, rales, rhonchi. Normal insp/exp effort, no accessory muscle use Cardiovascular: tachycardic rate, regular rhythm, no murmur, normal peripheral pulses. Vessels: no JVD or carotid bruit Chest: normal inspection of chest Abdomen/GI: normal bowel sounds, soft, TTP of L flank and epigastrium, no guarding, no hepatosplenomegaly Extremities/Musculoskelatal: no cyanosis or clubbing, extremities motor strength 5/5 Neurologic: PERRL, EOMI, accommodation nl, no face palsy, no dysarthria CN's II-XI intact bilaterally and moves all extremities Psychiatric: A+Ox3, + anxious Skin: no rashes, normal color, warm/dry Principal Diagnosis UTI, hypertension, family L juvenile nephrolithiasis, status post right kidney transplant in 2006 Discharge Exam Constitutional + thin; no acute distress Eyes PERRL, conjunctivae normal, anicteric sclerae ENMT external ear and nose normal, oropharynx normal Neck trachea midline, no thyromegaly Respiratory normal respiratory effort; no respiratory distress Auscultation: lungs clear to auscultation bilaterally Cardiovascular Rate/Rhythm: regular rate and regular rhythm Heart Sounds: no murmur Gastrointestinal (Abdomen) Inspection/Auscultation: abdomen normal to inspection; abdomen not distended Percussion/Palpation: + abdomen tender (Mildly tender in the left renal angle- almost gone) and abdomen soft; no guarding Neurologic moves all extremities; no focal motor deficits Lymphatic no cervical or axillary lymphadenopathy Discharge Data Allergies Allergy/AdvReac Type Severity Reaction Status Date / Time hydromorphone [From Dilaudid] Allergy Mild Rash Verified 09/06/19 01:59 morphine AdvReac Unknown PSYCHOSIS Verified 09/05/19 19:53 Dust Mite Extract Allergy Mild . 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 -L flank pain and decreased appetite for past few days. Lipase of 1696. No evidence of abnormality to pancreas on CT abd/pelvis without contrast -Some alcohol use over the weekend with friends. Non-smoker -Ultrasound of the gallbladder did not show any gallstones -Not having any vomiting and her abdominal distention -May have mild pancreatitis -Will start full liquid diet and decrease IV fluid -Tolerated regular diet and remained afebrile with normal white count -Lipase has been normalized -She is much better and without any symptoms -Will be discharged home this afternoon (2) UTI (urinary tract infection): UA abnormal with urine culture pending Did have left flank and renal angle pain with frequency and that UA is a suggestive of infection Will start intravenous ceftriaxone for that Await culture to determine the use of specific antibiotic Urine grew 3 different kinds of organisms We will treated with oral Keflex for 3 days in total (3) Familial juvenile nephrophthisis: Renal angle pain could be secondary to nephrolithiasis Renal angle pain is much better (4) Status post kidney transplant: History of R kidney transplant from mother in 2006 -Follows locally with Dr. Bess of [facility] nephro as well as Dr. Collazo of [place] transplant service -Continue Prograf and Myfortic -Monitor renal function closely- Cr up to 1.36 from baseline ~1.1-1.2 -As long as kidney function remains stable we will hold off any nephrology consult -Kidney function has been normalized (5) HTN (hypertension): Hypertensive in ED at 151/101 and was given IV Lopressor -Continue home bisoprolol and amlodipine (6) Selective deficiency of IgG: Takes Bactrim as prophylaxis Code status: FULL PCP: Dr. Valle Discussed with the parents in detail She will be discharged home this afternoon Total Time Total Time Spent Total Time Spent (In Minutes): 35 minutes Total Time Includes: Examination of the Patient, Discharge Planning, Medication Reconciliation and Communication With Other Providers Discharge Plan Discharge Items Patient Disposition: Home - Self-Care Reason For Visit: PANCREATITIS Discharge Diagnosis: UTI, hypertension, family L juvenile nephrolithiasis, status post right kidney transplant in 2006 Condition on Discharge: Good Activity: Resume your previous activity Non-emergency contact: Primary Care Provider Call non-emergency contact if: you have any medication questions and your symptoms worsen Follow-up/Referrals: Gio Valle MD [Primary Care Provider] - 09/13/19 1:05 pm (Keep appointment with your rn surgery icu) Diet: Regular Addtl Attending Provider Instructions: Drink more fluid Pending Studies at Discharge: No Stand-Alone Forms: My [employer], Smoking Cessation Medications and DC Order Prescriptions: New cephalexin 250 mg Capsule 250 mg PO TID 2 Days Qty: 6 RF: 0 Lactinex 1 million cell tablet,chewable 1 tab PO BID Qty: 20 RF: 0 Continued amlodipine 10 mg tablet 10 mg PO DAILY RF: 0 bisoprolol fumarate 5 mg tablet 5 mg PO HS RF: 0 norethindrone (contraceptive) [Lucia] 0.35 mg tablet 0.35 mg PO DAILY RF: 0 magnesium oxide 400 mg (241.3 mg magnesium) tablet 200 mg PO HS RF: 0 multivitamin tablet 1 tab PO DAILY RF: 0 mycophenolate sodium 180 mg tablet,delayed release (DR/EC) 360 mg PO BID RF: 0 triamcinolone acetonide 55 mcg aerosol,spray 1 sprays INTNAS DAILY RF: 0 tacrolimus [Prograf] 1 mg capsule 3 mg PO BID RF: 0 tacrolimus 5 mg capsule 5 mg PO BID RF: 0 sulfamethoxazole-trimethoprim 400-80 mg Tablet 0.5 tab PO BID RF: 0 penciclovir 1 % Cream 1 % TOPICAL Q2H RF: 0 Discharge Orders: Discharge Order (Routine); Ordered 09/07/19 Ordered By: Linda White Admission Data Admit Date/Time: 09/05/19 21:38 Attending Provider: Linda White Admit Provider: Tonny Frye Primary Care Provider: Gio Valle Other Providers: Tonny Frye ; Deven Mahajan ; Evan Orantes ; Ken Ellis Other Interventions: Discharge Summary Assessment (RN) Last Done: 09/07/19 12:45 DC Date/Time DO NOT enter until pt leaves facility: 09/07/19 13:50
== END 2019-09-07 13:50 | disposition home or self-care (01) | DRG 439 ==
LOC: ED 18:52 → 4W 21:38

== ENCOUNTER 2023-04-17 20:16 | Observation (INO) ==
[2023-04-17] MEDS ORDERED: diphenhydrAMINE 50 MG/ML VIAL IV STA (20:31)
[2023-04-17] MEDS ORDERED: PROCHLORPERAZINE 2 ML IV ONE (20:31)
[2023-04-17] MEDS ORDERED: SODIUM CHLORIDE 0.9% 1,000 ML IV STA (20:31)
--- NOTE | 2023-04-17 20:48 | Emergency Department Note ---
Impression & Plan Vomiting, Acute kidney injury superimposed on CKD ED Provider Note HISTORY OF PRESENT ILLNESS: Patient is a 27-year-old female presenting with nausea and a headache. Patient reports that 3 days ago she was having increased urinary frequency and had a urine test performed by her primary doctor. It was found to be infected and she was started on Bactrim. Reports for the last 24 hours she has been having persistent episodes of vomiting and has been unable to tolerate oral intake. Reports having a constant, throbbing headache for the last 24 hours. Denies any fevers. Denies any abdominal pain. Denies any diarrhea. Denies any recent sick contact exposures or recent travel. She has a history of renal transplant and is on immunosuppressive medications. ROS: as above PHYSICAL EXAM: Constitutional: Patient appears in no acute distress. HENT: Head: Normocephalic and atraumatic. Eyes: EOMI, PERRL Mouth/Throat: Mucous membranes moist. Neck: Trachea midline. Neck supple. Cardiovascular: RRR, No murmurs, rubs or gallops. Intact distal pulses. Pulmonary/Chest: No respiratory distress. Breath sounds clear and equal bilaterally. No wheezes or rales. Abdominal: BS +. Abdomen soft, no tenderness, rebound or guarding. Musculoskeletal: No edema, tenderness or deformity noted. Skin: Warm and dry. No rash, erythema, pallor or cyanosis Psychiatric: Appropriate mood and affect for situation. Neurological: Alert and keenly responsive. CN II-XII grossly intact, moving all extremities equally and fully. MDM: - Vitals signs showed hypertension and borderline tachycardia - History obtained via patient. Patient presents with headache and vomiting. Patient reports symptoms of been ongoing for the last 24 hours. She is unable to tolerate anything by mouth without vomiting. Denies any abdominal pain. Denies any diarrhea. Denies any chest pain or shortness of breath. Denies any fevers. Reports a constant throbbing headache. She has been on Bactrim for the last 2 days for urinary tract infection - Chronic conditions affecting care: familial juvenile nephrophthisis (s/p renal transplant); HTN - Differential diagnoses include, but are not limited to: UTI; bacteremia; pyelonephritis; viral syndrome - Order placed for continuous cardiac monitoring. At this time, monitor showed rate of 95 bpm with normal sinus rhythm, per my interpretation. - External medical records reviewed. - Laboratory workup interpreted by myself showed leukocytosis (WBC 11.46); GENESIS (Cr 2.38 - baseline around 1.7); normal lipase - COVID negative - UA showed evidence of infection. Given 1g IV rocephin - CT abdomen/pelvis wo contrast negative for acute pathology. - Patient given 2L NS, 10 mg IV compazine and 50 mg IV benadryl in ER. On reassessment, no further nausea or vomiting. - Discussion was had with social scientist about patient's case and need for admission. - Hospitalist, Dr. Alonzo, consulted for admission - [facility] 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 Surgical History History of eye surgery S/P tonsillectomy and adenoidectomy Status post kidney transplant "April 2007" Family History Aunt Depression with anxiety Kidney disease Grandfather (Maternal) Cardiac disease Diabetes Hypertension Kidney disease Grandmother Cardiac disease Maternal great grandmother Hypertension Grandmother (Maternal) Ovarian cyst Other Asthma Cancer Heart disease Denies family history of Ovarian cancer Breast cancer Colorectal cancer Social History Smoking Status: Never smoker Do You Dip or Chew Tobacco: No; Hx Alcohol Use: Yes Hx Substance Use: No Preferred Language: Mongolian Communication Ability: Effective Forensic Nurse Required: No Beliefs That Will Affect Care: None Current Living Situation: Family current occupational status: employed Feels Safe at Home: Yes Assistive Devices: None Allergies Allergies Allergy/AdvReac Type Severity Reaction Status Date / Time hydromorphone [From Dilaudid] Allergy Mild Rash Verified 11/30/22 13:37 house dust AdvReac Unknown Verified 11/30/22 13:37 morphine AdvReac Unknown PSYCHOSIS Verified 11/30/22 13:37 Dust Mite Extract Allergy Mild Congested Uncoded 11/30/22 13:37 Home Meds Home Medications Medication Instructions Recorded Confirmed magnesium oxide 400 mg (241.3 mg 200 mg PO HS 07/25/19 04/17/23 magnesium) tablet multivitamin 1 tab PO DAILY 07/25/19 04/17/23 mycophenolate sodium 180 mg 360 mg PO BID 07/25/19 04/17/23 tablet,delayed release triamcinolone acetonide 55 mcg 1 sprays intranasal DAILY 07/25/19 04/17/23 nasal spray aerosol tacrolimus 5 mg capsule, See Rx Instructions .Route .COMPLEX 05/20/20 04/17/23 immediate-release clobetasol 0.05 % topical cream 0.05 g topical BID PRN Other 04/17/23 04/17/23 sulfamethoxazole 800 1 tab PO BID 04/17/23 04/17/23 mg-trimethoprim 160 mg tablet Previous Rx's Medication Instructions Recorded norethindrone (contraceptive) 0.35 0.35 mg PO DAILY #28 tabs 04/21/22 mg tablet (Lucia) bisoprolol fumarate 5 mg tablet 5 mg PO HS #90 tabs 06/04/22 amlodipine 10 mg tablet 10 mg PO DAILY #90 tabs 02/22/23 Results & Data (ED) Vital Signs Vital Signs - 24 hr 04/17/23 20:18 04/17/23 20:52 04/17/23 20:52 Temperature 36.5 C Temperature Source Temporal Artery Scan Pulse Rate 98 H 91 H Pulse Rate [Left Finger] Pulse Rhythm [Left Finger] Pulse Strength [Left Finger] Respiratory Rate 16 Respiratory Effort / Characteristics Non-Labored Spontaneous Respiratory Depth Normal Blood Pressure 164/126 H Blood Pressure [Left Arm] 140/105 H Blood Pressure Mean 138 Blood Pressure Mean [Left Arm] 116 Pulse Oximetry 93 95 Oxygen Delivery Method Room Air Room Air Sepsis Recent Fever Within 48 Hours No Sepsis New/Unexplained Change in Mental Status No Sepsis Action Taken by Nursing No Action Required 04/17/23 22:51 Temperature Temperature Source Pulse Rate Pulse Rate [Left Finger] 78 Pulse Rhythm [Left Finger] Regular Pulse Strength [Left Finger] Normal Respiratory Rate 20 Respiratory Effort / Characteristics Non-Labored Spontaneous Respiratory Depth Normal Blood Pressure Blood Pressure [Left Arm] 135/89 Blood Pressure Mean Blood Pressure Mean [Left Arm] 104 Pulse Oximetry 98 Oxygen Delivery Method Room Air Sepsis Recent Fever Within 48 Hours Sepsis New/Unexplained Change in Mental Status Sepsis Action Taken by Nursing Laboratory Data 04/17/23 20:41 04/17/23 20:41 Lab Results 04/17/23 04/17/23 04/17/23 Range/Units 20:41 20:41 21:38 WBC 11.46 H (4.8-10.8) K/ul RBC 4.16 L (4.20-5.40) M/uL Hgb 12.4 (12.0-16.0) g/dl Hct 36.0 L (37.0-47.0) % MCV 86.5 (80.0-100.0) fL MCH 29.8 (25.0-34.0) pg MCHC 34.4 (32.0-36.0) g/dL RDW Std Deviation 39.5 (36.4-46.3) fL RDW Coeff of Cj 12.4 (11.5-14.5) % Plt Count 275 (130-400) K/uL MPV 11.1 (9.4-12.4) fL Immature Gran % (Auto) 0.3 % Neut % (Auto) 78.2 % Lymph % (Auto) 16.5 % Smyth % (Auto) 4.5 % Eos % (Auto) 0.1 % Baso % (Auto) 0.4 % Neut # (Auto) 8.96 H (1.40-6.50) K/uL Lymph # (Auto) 1.89 (1.2-3.4) K/uL Smyth # (Auto) 0.51 (0.11-0.59) K/uL Eos # (Auto) 0.01 (0-0.50) K/uL Baso # (Auto) 0.05 (0-0.2) K/uL Immature Gran # (Auto) 0.04 (0.01-0.20) K/uL Sodium 136 (136-145) mmol/L Potassium 3.8 (3.5-5.1) mmol/L Chloride 102 (98-107) mmol/L Carbon Dioxide 23 (21-32) mmol/L Anion Gap 11 (3-11) BUN 21 (6-23) mg/dl Creatinine 2.38 H (0.6-1.2) mg/dl Est Cr Clr Drug Dosing 31.9 ml/min Est GFR ( Amer) 31.6 ml/min Est GFR (Non-Af Amer) 27.2 ml/min BUN/Creatinine Ratio 8.8 L (10-20) Glucose 108 H (70-99(Fasting)) mg/dl Calcium 10.4 H (8.6-10.3) mg/dl Total Bilirubin 0.5 (0.2-1.0) mg/dl AST 12 L (13-39) U/L ALT 8 (7-52) U/L Alkaline Phosphatase 55 (34-104) U/L Total Protein 7.4 (6.0-8.3) gm/dl Albumin 4.7 (3.4-5.0) gm/dl Globulin 2.7 (2.5-4.0) gm/dl Albumin/Globulin Ratio 1.7 (0.9-2) Lipase 20 (11-82) U/L Urine Color Yellow Urine Appearance Clear (Clear) Urine pH 7.0 (4.5-7.5) Ur Specific [place] 1.016 (1.000-1.030) Urine Protein 1+ H (Negative) Urine Glucose (UA) Negative (Negative) Urine Ketones Negative (Negative) Urine Blood Trace H (Negative) Urine Nitrite Negative (Negative) Urine Bilirubin Negative (Negative) Urine Urobilinogen Negative (Negative) Ur Leukocyte Esterase 2+ H (Negative) Urine WBC (Auto) 10-30 H (0-5) /hpf Urine RBC (Auto) 5-10 H (0-4) /hpf U Hyaline Cast (Auto) 1-5 (0-5) /lpf U Epithel Cells (Auto) 10-20 H (0-5) /lpf Urine Bacteria (Auto) Negative (Negative) SARS-CoV-2, RNA, NAAT (NEGATIVE) 04/17/23 Range/Units 22:46 WBC (4.8-10.8) K/ul RBC (4.20-5.40) M/uL Hgb (12.0-16.0) g/dl Hct (37.0-47.0) % MCV (80.0-100.0) fL MCH (25.0-34.0) pg MCHC (32.0-36.0) g/dL RDW Std Deviation (36.4-46.3) fL RDW Coeff of Cj (11.5-14.5) % Plt Count (130-400) K/uL MPV (9.4-12.4) fL Immature Gran % (Auto) % Neut % (Auto) % Lymph % (Auto) % Smyth % (Auto) % Eos % (Auto) % Baso % (Auto) % Neut # (Auto) (1.40-6.50) K/uL Lymph # (Auto) (1.2-3.4) K/uL Smyth # (Auto) (0.11-0.59) K/uL Eos # (Auto) (0-0.50) K/uL Baso # (Auto) (0-0.2) K/uL Immature Gran # (Auto) (0.01-0.20) K/uL Sodium (136-145) mmol/L Potassium (3.5-5.1) mmol/L Chloride (98-107) mmol/L Carbon Dioxide (21-32) mmol/L Anion Gap (3-11) BUN (6-23) mg/dl Creatinine (0.6-1.2) mg/dl Est Cr Clr Drug Dosing ml/min Est GFR ( Amer) ml/min Est GFR (Non-Af Amer) ml/min BUN/Creatinine Ratio (10-20) Glucose (70-99(Fasting)) mg/dl Calcium (8.6-10.3) mg/dl Total Bilirubin (0.2-1.0) mg/dl AST (13-39) U/L ALT (7-52) U/L Alkaline Phosphatase (34-104) U/L Total Protein (6.0-8.3) gm/dl Albumin (3.4-5.0) gm/dl Globulin (2.5-4.0) gm/dl Albumin/Globulin Ratio (0.9-2) Lipase (11-82) U/L Urine Color Urine Appearance (Clear) Urine pH (4.5-7.5) Ur Specific [place] (1.000-1.030) Urine Protein (Negative) Urine Glucose (UA) (Negative) Urine Ketones (Negative) Urine Blood (Negative) Urine Nitrite (Negative) Urine Bilirubin (Negative) Urine Urobilinogen (Negative) Ur Leukocyte Esterase (Negative) Urine WBC (Auto) (0-5) /hpf Urine RBC (Auto) (0-4) /hpf U Hyaline Cast (Auto) (0-5) /lpf U Epithel Cells (Auto) (0-5) /lpf Urine Bacteria (Auto) (Negative) SARS-CoV-2, RNA, NAAT NEGATIVE (NEGATIVE) Administered Medications Discontinued Medications Diphenhydramine HCl (Diphenhydramine 50 Mg/Ml Vial) 50 mg IV NOW STA Stop: 04/17/23 20:32 Last Admin: 04/17/23 20:47 Dose: 50 mg Documented By: ML Sodium Chloride (Nss 1000ml) 1,000 mls @ 999 mls/hr IV .Q1H1M STA Stop: 04/17/23 21:31 Last Infusion: 04/17/23 22:40 Dose: 0 mls/hr Documented By: Admin: 04/17/23 20:46 Dose: 999 mls/hr Documented By: ML Prochlorperazine (Compazine) 2 mls @ 1 mls/min IV ONE ONE Stop: 04/17/23 20:32 Last Admin: 04/17/23 20:48 Dose: 1 mls/min Documented By: ML Sodium Chloride (Nss 1000ml) 1,000 mls @ 999 mls/hr IV .Q1H1M ONE Stop: 04/17/23 22:27 Last Infusion: 04/17/23 22:40 Dose: 0 mls/hr Documented By: Admin: 04/17/23 21:38 Dose: 999 mls/hr Documented By: Imaging Data Radiologist's Impression: Abdomen/Pelvis CT 04/17/23 22:43 Exam(s): CT ABDOMEN + PELVIS Without Contrast EXAM: CT Abdomen and Pelvis Without Intravenous Contrast CLINICAL HISTORY: Reason for exam: vomiting; GENESIS. TECHNIQUE: Axial computed tomography images of the abdomen and pelvis without intravenous contrast. Automated exposure control was utilized for the study. A dose lowering technique was utilized adhering to the principles of ALARA. COMPARISON: No relevant prior studies available. FINDINGS: Lung bases: Unremarkable. No mass. No consolidation. ABDOMEN: Liver: Unremarkable. Gallbladder and bile ducts: Unremarkable. No calcified stones. No ductal dilation. Pancreas: Unremarkable. No ductal dilation. Spleen: Unremarkable. No splenomegaly. Adrenals: Unremarkable. No mass. Kidneys and ureters: Atrophic bilateral platinum kidneys with right lower quadrant renal transplant. No obstructing stones. No hydronephrosis. Stomach and bowel: Unremarkable. No obstruction. No mucosal thickening. PELVIS: Appendix: No findings to suggest acute appendicitis. Bladder: Unremarkable. No stones. Reproductive: Unremarkable as visualized. ABDOMEN and PELVIS: Intraperitoneal space: Unremarkable. No free air. No significant fluid collection. Bones/joints: No acute fracture. No dislocation. Soft tissues: Unremarkable. Vasculature: Unremarkable. No abdominal aortic aneurysm. Lymph nodes: Unremarkable. No enlarged lymph nodes. Other findings: . IMPRESSION: No acute findings in the abdomen or pelvis. Electronically signed by: Connor Robert M.D. 04/17/23 23:40 PM Discharge Plan Visit Data Chief Complaint: Nausea Stated Complaint: UTI,NAUSEA,HEADACHE, ED Provider: Ina Richter Discharge Problem: Vomiting, Acute kidney injury superimposed on CKD Forms Stand Alone Forms: [facility] [place] Prescriptions Prescriptions: No Action bisoprolol fumarate 5 mg tablet 5 mg PO HS Qty: 90 3RF amlodipine 10 mg tablet 10 mg PO DAILY Qty: 90 3RF magnesium oxide 400 mg (241.3 mg magnesium) tablet 200 mg PO HS multivitamin tablet 1 tab PO DAILY mycophenolate sodium 180 mg tablet,delayed release (DR/EC) 360 mg PO BID triamcinolone acetonide 55 mcg aerosol,spray 1 sprays INTNAS DAILY tacrolimus 5 mg capsule See Rx Instructions .ROUTE .COMPLEX Rx Instructions: take am and pm norethindrone (contraceptive) [Lucia] 0.35 mg tablet 0.35 mg PO DAILY Qty: 28 12RF Rx Instructions: Take 1 tablet by mouth daily. clobetasol 0.05 % cream 0.05 g TOPICAL BID PRN (Reason: Other) sulfamethoxazole-trimethoprim 800-160 mg tablet 1 tab PO BID Referrals Referrals: Latrice Ferrell [Primary Care Provider] -
[2023-04-17 21:25] LABS: Albumin Globulin Ratio 1.7 (0.9-2); Albumin Level 4.7 gm/dl (3.4-5.0); BUN Creatinine Ratio 8.8 (10-20); Bilirubin,Total 0.5 mg/dl (0.2-1.0); Calcium 10.4 mg/dl (8.6-10.3); Creatinine Clr Calc Pharmacy 31.9 ml/min; Est GFR (African American) 31.6 ml/min; Est GFR (Non-African American) 27.2 ml/min; Globulin 2.7 gm/dl (2.5-4.0); Potassium 3.8 mmol/L (3.5-5.1); Total Protein 7.4 gm/dl (6.0-8.3)
[2023-04-17] MEDS ORDERED: SODIUM CHLORIDE 0.9% 1,000 ML IV ONE (21:27)
[2023-04-17 21:35] LABS: Basophils # (auto) 0.05 K/uL (0-0.2); Basophils % (auto) 0.4 %; Eosinophils # (auto) 0.01 K/uL (0-0.50); Eosinophils % (auto) 0.1 %; Hemoglobin 12.4 g/dl (12.0-16.0); Immature Granulocytes # (auto) 0.04 K/uL (0.01-0.20); Immature Granulocytes % (auto) 0.3 %; Lymphocytes # (auto) 1.89 K/uL (1.2-3.4); Lymphocytes % (auto) 16.5 %; Mean Corpuscular Hemoglobin 29.8 pg (25.0-34.0); Mean Corpuscular Hgb Conc 34.4 g/dL (32.0-36.0); Mean Corpuscular Volume 86.5 fL (80.0-100.0); Mean Platelet Volume 11.1 fL (9.4-12.4); Monocytes # (auto) 0.51 K/uL (0.11-0.59); Monocytes % (auto) 4.5 %; Neutrophils # (auto) 8.96 K/uL (1.40-6.50); Neutrophils % (auto) 78.2 %; Platelet Count 275 K/uL (130-400); RDW Coefficient of Variation 12.4 % (11.5-14.5); RDW Standard Deviation 39.5 fL (36.4-46.3); Red Blood Count 4.16 M/uL (4.20-5.40); White Blood Count 11.46 K/ul (4.8-10.8)
[2023-04-17 21:58] LABS: Appearance Urine Clear (Clear); Bacteria Urine Automated Negative (Negative); Bilirubin Urine Negative (Negative); Blood Urine Trace (Negative); Color Urine Yellow; Glucose Urine UA Negative (Negative); Ketones Urine Negative (Negative); Leukocyte Esterase Urine 2+ (Negative); Nitrite Urine Negative (Negative); Protein Urine 1+ (Negative); Specific Gravity Urine 1.016 (1.000-1.030); Urobilinogen Urine Negative (Negative)
--- NOTE | 2023-04-17 23:41 | CT Scan Report ---
Exam(s): CT ABDOMEN + PELVIS Without Contrast EXAM: CT Abdomen and Pelvis Without Intravenous Contrast CLINICAL HISTORY: Reason for exam: vomiting; GENESIS. TECHNIQUE: Axial computed tomography images of the abdomen and pelvis without intravenous contrast. Automated exposure control was utilized for the study. A dose lowering technique was utilized adhering to the principles of ALARA. COMPARISON: No relevant prior studies available. FINDINGS: Lung bases: Unremarkable. No mass. No consolidation. ABDOMEN: Liver: Unremarkable. Gallbladder and bile ducts: Unremarkable. No calcified stones. No ductal dilation. Pancreas: Unremarkable. No ductal dilation. Spleen: Unremarkable. No splenomegaly. Adrenals: Unremarkable. No mass. Kidneys and ureters: Atrophic bilateral [place] kidneys with right lower quadrant renal transplant. No obstructing stones. No hydronephrosis. Stomach and bowel: Unremarkable. No obstruction. No mucosal thickening. PELVIS: Appendix: No findings to suggest acute appendicitis. Bladder: Unremarkable. No stones. Reproductive: Unremarkable as visualized. ABDOMEN and PELVIS: Intraperitoneal space: Unremarkable. No free air. No significant fluid collection. Bones/joints: No acute fracture. No dislocation. Soft tissues: Unremarkable. Vasculature: Unremarkable. No abdominal aortic aneurysm. Lymph nodes: Unremarkable. No enlarged lymph nodes. Other findings: . IMPRESSION: No acute findings in the abdomen or pelvis. Electronically signed by: Connor Robert M.D. 04/17/23 23:40 PM
[2023-04-17] MEDS ORDERED: cefTRIAXone SODIUM 1,000 MG in DEXTROSE 5% AD-VAN 50 ML IV STA (23:52)
--- NOTE | 2023-04-18 00:23 | History & Physical Report ---
Date of Service April 18, 2023 Assessment & Plan (1) Acute kidney injury superimposed on CKD: Plan: 27yo Female with PMH familial juvenile nephrophthisis s/p renal transplant, immunocompromised, HTN here for vomiting. Concern UTI sepsis in Immunocompromised patient -WBC 11.46 -in ED started rocephin -continue empiric rocephin -Ucx pending -admit to med/tele -CT A/P: No acute findings in the abdomen or pelvis. -trend cbc GENESIS on CKD -creat 2.38 normal around 1.7 -in ED received NSS 2L, started on rocephin -will continue NSS 125mls/hr -trend bmp Hx. Kidney transplant -continue tacrolimus -continue mycophenolate HTN -continue bisoprolol, amlodipine FENa: regular Code Status: Full DVT PPX: ambulatory Dispo: med/tele Alyssa Krishnan D.O. PGY 3, FCM (2) Vomiting: (3) Immunocompromised patient: (4) Familial juvenile nephrophthisis: (5) HTN (hypertension): (6) Status post kidney transplant: History of Present Illness Chief Complaint: Vomiting Primary Care Provider: Latrice Ferrell 27yo Female with PMH familial juvenile nephrophthisis s/p renal transplant, immunocompromised, HTN here for vomiting. Patient states on Tuesday she developed UTI symptoms saw her PCP was placed on bactrim. The next day she developed nausea had low appetite and headache. Yesterday she continued to have a headache developed vomiting, was able to take her other medications not her bactrim. She denies any fever SOB chest pain abd pain weakness fatigue, denies other changes in medication or sick contacts. Patient states she is urinating normally, no blood in urine/pain with urination/urinary frequency. In ED she received compazine. At this time nausea under control. Patient followed senior compliance officer Dr. Bess. Allergies Allergy/AdvReac Type Severity Reaction Status Date / Time hydromorphone [From Dilaudid] Allergy Mild Rash Verified 11/30/22 13:37 house dust AdvReac Unknown Verified 11/30/22 13:37 morphine AdvReac Unknown PSYCHOSIS Verified 11/30/22 13:37 Dust Mite Extract Allergy Mild Congested Uncoded 11/30/22 13:37 Home Medications Medication Instructions Recorded Confirmed Type magnesium oxide 400 mg (241.3 mg 200 mg PO HS 07/25/19 04/17/23 History magnesium) tablet multivitamin 1 tab PO DAILY 07/25/19 04/17/23 History mycophenolate sodium 180 mg 360 mg PO BID 07/25/19 04/17/23 History tablet,delayed release triamcinolone acetonide 55 mcg 1 sprays intranasal DAILY 07/25/19 04/17/23 History nasal spray aerosol tacrolimus 5 mg capsule, See Rx Instructions .Route .COMPLEX 05/20/20 04/17/23 H istory immediate-release norethindrone (contraceptive) 0.35 0.35 mg PO DAILY #28 tabs 04/21/22 04/17/23 Rx mg tablet (Lucia) bisoprolol fumarate 5 mg tablet 5 mg PO HS #90 tabs 06/04/22 04/17/23 Rx amlodipine 10 mg tablet 10 mg PO DAILY #90 tabs 02/22/23 04/17/23 Rx clobetasol 0.05 % topical cream 0.05 g topical BID PRN Other 04/17/23 04/17/23 History sulfamethoxazole 800 1 tab PO BID 04/17/23 04/17/23 History mg-trimethoprim 160 mg tablet Past Med/Surg History Medical History (Updated 04/17/23 @ 23:56 by Ina Richter MD) End-stage renal failure with renal transplant Familial juvenile nephrophthisis H/O amblyopia HTN (hypertension) Renal osteodystrophy Secondary hyperparathyroidism 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 Surgical History History of eye surgery S/P tonsillectomy and adenoidectomy Status post kidney transplant "April 2007" Family History Aunt Depression with anxiety Kidney disease Grandfather (Maternal) Cardiac disease Diabetes Hypertension Kidney disease Grandmother Cardiac disease Maternal great grandmother Hypertension Grandmother (Maternal) Ovarian cyst Other Asthma Cancer Heart disease Denies family history of Ovarian cancer Breast cancer Colorectal cancer Social History Smoking Status: Never smoker Second Hand Exposure: No; Do You Dip or Chew Tobacco: No; Hx Alcohol Use: Yes Alcohol type: wine Hx Substance Use: No Preferred Language: Nauruan Communication Ability: Effective Cosmetology Educator Required: No Beliefs That Will Affect Care: None Current Living Situation: Family Current Living Situation Comment: Lives at home with parents current occupational status: employed Other Information That Helps Us Care for You: No Feels Safe at Home: Yes Safety Concerns: Feels Safe At This Time Assistive Devices: Glasses Physical Exam Constitutional: well developed, well nourished, cooperative and comfortable Eyes: PERRL, conjunctivae normal, anicteric sclerae ENMT: external ear and nose normal, oropharynx normal Neck: trachea midline, no thyromegaly Respiratory: normal respiratory effort, lungs clear to auscultation Cardiovascular: RRR, no murmur, no edema Gastrointestinal (Abdomen): Inspection/Auscultation: abdomen normal to inspection and + abdominal surgical scar Percussion/Palpation: abdomen soft; abdomen nontender Skin: no rashes, warm and dry Results & Data Results & Data Vital Signs (Past 12 Hours) Vital Signs Temp Pulse Pulse Resp BP BP Pulse Ox 04/17/23 22:51 78 20 135/89 98 04/17/23 20:52 140/105 H 04/17/23 20:52 91 H 95 04/17/23 20:18 36.5 C 98 H 16 164/126 H 93 O2 Del Method 04/17/23 22:51 Room Air 04/17/23 20:52 04/17/23 20:52 Room Air 04/17/23 20:18 Room Air Supervising Physician Co-Signing Physician Notes attending addendum: I have physically seen this patient, have supervised the medical residents activities, and agree with the H&P unless as otherwise noted. Assessment and Plan: Acute kidney injury on CKD/renal transplant status/familial juvenile nephrophthisis- creatinine 2.38, with base range 1.2-1.7 status post 2 L normal saline in the ED and ceftriaxone 1 g IV Follow urine culture and sensitivity Continue ceftriaxone 1 g IV daily NSS 125 mils per hour Follow serial laboratories: CBC with differential, BMP and magnesium levels kidney transplant status- Continue immunosuppressives: Tacrolimus and mycophenolate hypertension- Continue bisoprolol and amlodipine with hold parameters Resident Activity Tracking Resident Involvement: Resident Care Provided Care Provided: Adult [facility]
[2023-04-18] MEDS: SODIUM CHLORIDE 0.9% 1,000 ML IV SCH ×2 (00:56→08:34)
[2023-04-18] MEDS ORDERED: ACETAMINOPHEN 325 MG TAB PO PRN (01:26)
[2023-04-18] MEDS ORDERED: POLYETHYLENE (MIRALAX) 17 GM PACK PO PRN (01:26)
[2023-04-18] MEDS ORDERED: ONDANSETRON INJ 2 MG/ML 2 ML VIAL IV PRN (01:26)
--- NOTE | 2023-04-18 05:51 | Billing Data ---
Date of Service April 18, 2023 Coding Level of Care Code 88722 INT INP/OBS CARE
[2023-04-18] MEDS: amLODIPine BESYLATE 5 MG TAB PO SCH (08:35)
[2023-04-18] MEDS: TACROLIMUS 1 MG CAP PO SCH ×2 (08:36→21:27)
[2023-04-18] MEDS: MYCOPHENOLATE SODIUM 180 MG TAB PO SCH ×2 (08:37→21:27)
[2023-04-18] MEDS ORDERED: cefTRIAXone SODIUM 1,000 MG in DEXTROSE 5% AD-VAN 50 ML IV SCH (09:00)
--- NOTE | 2023-04-18 09:06 | Hospitalist Progress Note ---
Date of Service April 18, 2023 Assessment & Plan (1) Acute kidney injury superimposed on CKD: Plan: 27yo Female with PMH familial juvenile nephrophthisis s/p renal transplant, immunocompromised, HTN who presented with nausea and vomiting with GENESIS on CKD. Concern UTI sepsis in Immunocompromised patient -WBC: 6.25 -CT A/P: No acute findings in the abdomen or pelvis. -Out patient culture showed group b strep, question whether nausea/vomiting was secondary to Bactrim vs. UTI. -had previously been on suppressive dose of bactrim after transplant. -trend cbc -Clinically improving * switch to cefdinir PO * Ucx pending, GENESIS on CKD -creat 2.15 today, normal around 1.7 -in ED received NSS 2L, started on rocephin * will continue NSS 125mls/hr * trend bmp Hx. Kidney transplant * continue tacrolimus * continue mycophenolate HTN * continue bisoprolol, amlodipine FEN: regular Code Status: Full DVT PPX: ambulatory Dispo: med/tele (2) Vomiting: (3) Immunocompromised patient: (4) Familial juvenile nephrophthisis: (5) HTN (hypertension): (6) Status post kidney transplant: Admission and Anticipated Discharge Date Admission Date: April 18, 2023 Supervising Physician Co-Signing Physician Notes ATTESTATION I also saw the patient and completed an independent clinical history of his examination. I agree with the impression and plan in the medical student documentation, and as summarized below. Upon our exam, the patient was seated in bed. She reports feeling much better. She is tolerating some oral fluids without nausea or vomiting. In reviewing the patient's history, she had her usual blood work and urinalysis for her transplant team at [facility]. The urinalysis was abnormal, so she had a follow-up with her PCP at which time a culture was sent and she was started on Bactrim. In retrospect, the patient reports some increased urination, but no significant symptoms. Her significant symptoms started after starting the Bactrim. Had she not had the routine blood work scheduled, she tells me this morning that she probably would not have sought medical care. EXAM 135/90, 78, 16, 36.5, 96% room air Alert and oriented. No distress appreciated. Heart regular rate and rhythm Lungs clear with normal respirations No CVA tenderness appreciated DATA Labs WBC 6.25, down from 11.46 Hemoglobin 10.6 (down but suspect some degree of dilution) Creatinine 2.15, improved from 2.38 yesterday. Micro Urine culture from 04/17/2023 demonstrates pinpoint growth Outpatient urine culture ([facility]) demonstrates low colony count of group B strep IMPRESSION & PLAN Acute kidney injury on CKD/renal transplant status/familial juvenile nephrophthisis Suspect secondary to volume depletion given GI symptoms Fairly mild urinary symptoms -outpatient urine culture showing low colony counts of group B strep Wonder if her GI symptoms are actually from the Bactrim? Continue IV fluids BMP in a.m. Continue ceftriaxone pending ED urine culture Consider switching to p.o. cefdinir today to ensure p.o. tolerability Kidney transplant status Continue immunosuppressants Hypertension Continue current medications with hold parameters Additional per medical student documentation Subjective Today she is feeling much better. No nausea or vomiting. She just finished some toast when I came in. She has had no urinary symptoms today. Review of Systems Constitutional: Denied fever, night sweats, fatigue, weakness, dizziness Respiratory: Denied cough or shortness of breath. Cardiovascular: Additional Comments: Denied chest pain, palpitations Gastrointestinal: Denied nausea, vomiting, diarrhea, abdominal pain. Physical Exam Constitutional: Alert and oriented x3 in hopsital bed Neck: Respiratory: CTA, no increased work of breathing Cardiovascular: Normal rate and regular rhythmn. S1S2, no r/m/g. Radial pulses equal b/l. Capillary refill less than 2 sec. Gastrointestinal (Abdomen): Nondistended, nontender, normoactive bowel sounds. No CVA tenderness Musculoskeletal: Upper extremity 5/5 strength Lower extremity 5/5 strength Skin: Warm dry, no apparent rashed. Psychiatric: Appropriate mood and affect. Lymphatic: No lymphadenopathy in the neck and cervical region. Results & Data Results & Data Vital Signs (Past 12 Hours) Vital Signs Temp Pulse Pulse Resp BP Pulse Ox O2 Del Method 04/18/23 02:19 69 04/18/23 01:28 36.6 C 61 18 151/91 H 96 Room Air 04/17/23 22:51 78 20 135/89 98 Room Air 04/17/23 20:52 140/105 H 04/17/23 20:52 91 H 95 Room Air Laboratory Results 04/17/23 20:41 04/17/23 20:41
[2023-04-18 09:57] LABS: Hematocrit (blood only) 31.9 % (37.0-47.0); Hemoglobin 10.6 g/dl (12.0-16.0); Mean Corpuscular Hemoglobin 29.4 pg (25.0-34.0); Mean Corpuscular Hgb Conc 33.2 g/dL (32.0-36.0); Mean Corpuscular Volume 88.4 fL (80.0-100.0); Mean Platelet Volume 11.3 fL (9.4-12.4); Platelet Count 210 K/uL (130-400); RDW Coefficient of Variation 12.6 % (11.5-14.5); RDW Standard Deviation 40.8 fL (36.4-46.3); Red Blood Count 3.61 M/uL (4.20-5.40); White Blood Count 6.25 K/ul (4.8-10.8)
[2023-04-18 10:11] LABS: BUN Creatinine Ratio 8.8 (10-20); Calcium 8.9 mg/dl (8.6-10.3); Creatinine Clr Calc Pharmacy 35.7 ml/min; Est GFR (African American) 35.7 ml/min; Est GFR (Non-African American) 30.8 ml/min
--- NOTE | 2023-04-18 13:17 | Nephrology Consultation ---
Date of Consultation April 18, 2023 Assessment & Plan (1) Acute kidney injury superimposed on CKD: (2) Vomiting: (3) Status post kidney transplant: Plan 27-year-old female with history of renal transplant and recurrent urinary tract infection admitted after an episode of recent urinary tract infection and outpatient antibiotic then developed acute GI symptoms with nausea vomiting and headache. Started on Rocephin and IV fluid. On admission noted to have GENESIS with creatinine 2.4 while baseline creatinine is 1.7-1.8. GENESIS most likely secondary to volume depletion as creatinine already started to improve with IV hydration, down to 2.1, unlikely any acute rejection. -- continue on IV fluid monitor, renal function and electrolyte, encourage p.o. intake. -- tacrolimus 5 mg q12h and Myfortic acid bid. Thank you for allowing me to participate in your patient's care. It was a pleasure to see melly. History of Present Illness Reason for Consultation: acute kidney injury, history of kidney transplant Attending Physician: Smooth Davis, History of Present Illness Melly Tom is a 27-year-old female with past medical history significant for renal transplant with stage IIIB CKD, b/l cr 1.7-1.8, HTN, h/o recurrent UTI, admitted with urinary tract infection, volume depletion and GENESIS. Nephrology consult was requested for further management. EMR records were reviewed in detail during patient's visit. Melly has history of recurrent urinary tract infection. Recently she had an episode of UTI which started with increased frequency of urination and she had urinalysis done with her PCP office showing UTI and she was started on Bactrim 3 days ago. The day after she was started on Bactrim she started having nausea, vomiting and headache which worsened yesterday prompting her to come to ER. Workup in ER including CT abdomen pelvis was otherwise unremarkable, [place] kidneys are atrophic and otherwise normal right lower quadrant renal allograft. She was started on ceftriaxone and continued on IV fluid. On admission her creatinine was 2.4 with baseline creatinine 1.7-1.8. Her blood pressure was relatively high. She has been taking her immunosuppressive medications regularly, did not miss any dose. No fever, abdominal pain or pain at renal allograft area. Denies any diarrhea. Denies any recent sick contact exposures or recent travel. History of renal transplant in 2007 for familial juvenile nephronophthisis leading to end-stage renal disease. She underwent an uncomplicated living- related donor renal transplant at the age of 12 years at [facility]. Her mother was the kidney donor. She had 2 acute rejection episodes in 2019 and 2020 treated with IV methylprednisone. Currently she is on tacrolimus 5 mg twice a day and Myfortic acid 360 mg twice a day. Has been otherwise asymptomatic recently, renal function has been relatively stable. HTN well controlled on Amlodipine and BYstolic. Never smoker. Works at [employer]. This morning she already started feeling better, appetite decent and has been urine meeting normally. Allergies Allergy/AdvReac Type Severity Reaction Status Date / Time hydromorphone [From Dilaudid] Allergy Mild Rash Verified 11/30/22 13:37 house dust AdvReac Unknown Verified 11/30/22 13:37 morphine AdvReac Unknown PSYCHOSIS Verified 11/30/22 13:37 Dust Mite Extract Allergy Mild Congested Uncoded 11/30/22 13:37 Home Medications Medication Instructions Recorded Confirmed Type magnesium oxide 400 mg (241.3 mg 200 mg PO HS 07/25/19 04/17/23 History magnesium) tablet multivitamin 1 tab PO DAILY 07/25/19 04/17/23 History mycophenolate sodium 180 mg 360 mg PO BID 07/25/19 04/17/23 History tablet,delayed release triamcinolone acetonide 55 mcg 1 sprays intranasal DAILY 07/25/19 04/17/23 History nasal spray aerosol tacrolimus 5 mg capsule, See Rx Instructions .Route .COMPLEX 05/20/20 04/17/23 History immediate-release norethindrone (contraceptive) 0.35 0.35 mg PO DAILY #28 tabs 04/21/22 04/17/23 Rx mg tablet (Lucia) bisoprolol fumarate 5 mg tablet 5 mg PO HS #90 tabs 06/04/22 04/17/23 Rx amlodipine 10 mg tablet 10 mg PO DAILY #90 tabs 02/22/23 04/17/23 Rx clobetasol 0.05 % topical cream 0.05 g topical BID PRN Other 04/17/23 04/17/23 History sulfamethoxazole 800 1 tab PO BID 04/17/23 04/17/23 History mg-trimethoprim 160 mg tablet Patient History Medical History (Updated 04/17/23 @ 23:56 by Ina Richter MD) End-stage renal failure with renal transplant Familial juvenile nephrophthisis H/O amblyopia HTN (hypertension) Renal osteodystrophy Secondary hyperparathyroidism 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 Surgical History History of eye surgery S/P tonsillectomy and adenoidectomy Status post kidney transplant "April 2007" Family History Aunt Depression with anxiety Kidney disease Grandfather (Maternal) Cardiac disease Diabetes Hypertension Kidney disease Grandmother Cardiac disease Maternal great grandmother Hypertension Grandmother (Maternal) Ovarian cyst Other Asthma Cancer Heart disease Denies family history of Ovarian cancer Breast cancer Colorectal cancer Social History Smoking Status: Never smoker Second Hand Exposure: No; Do You Dip or Chew Tobacco: No; Hx Alcohol Use: Yes Alcohol type: wine Hx Substance Use: No Preferred Language: Macanese Communication Ability: Effective Pipe Smoking Machine Offbearer Required: No Beliefs That Will Affect Care: None Current Living Situation: Family Current Living Situation Comment: Lives at home with parents current occupational status: employed Other Information That Helps Us Care for You: No Feels Safe at Home: Yes Safety Concerns: Feels Safe At This Time Assistive Devices: Glasses Review of Systems Review of Systems: Detail ROS was unremarkable except mentioned above. Physical Exam Constitutional: WD/WN, vitals as above no acute distress Eyes: + anicteric sclerae Neck: normal visual inspection Respiratory: no respiratory distress Auscultation: lungs clear to auscultation bilaterally Cardiovascular: RRR, no murmur, no edema Gastrointestinal (Abdomen): Inspection/Auscultation: abdomen normal to inspection Percussion/Palpation: abdomen soft; abdomen nontender Musculoskeletal: Extremities: extremities normal to inspection Skin: no rashes, warm and dry Neurologic: no focal motor deficits Psychiatric: Orientation: alert and oriented x 3 Affect: euthymic affect Results & Data Vital Signs (Past 12 Hours) Vital Signs Temp Pulse Pulse Resp BP Pulse Ox O2 Del Method 04/18/23 09:48 36.7 C 76 18 151/92 H 97 Room Air 04/18/23 07:00 55 L 04/18/23 02:19 69 04/18/23 01:28 36.6 C 61 18 151/91 H 96 Room Air PG Care Time/CCT Total # of Minutes Spent Total Time Spent with Patient: Total time spent is greater than 50% in coordination of care (as documented) at patient's floor/unit and/or counseling patient: Coding Level of Care Code 60437 IN/OBS CONSULT LVL 4,60M Diagnoses Acute kidney injury superimposed on CKD N17.9; N18.9 Vomiting R11.10 Status post kidney transplant Z94.0
[2023-04-18] MEDS: LACTATED RINGER'S 1,000 ML IV SCH ×2 (16:00→23:29)
[2023-04-18] MEDS ORDERED: MAGNESIUM OXIDE 400 MG TAB PO SCH (21:00)
[2023-04-18] MEDS ORDERED: BISOPROLOL FUMARATE 5 MG TAB PO SCH (21:00)
[2023-04-19 07:31] LABS: Hematocrit (blood only) 34.6 % (37.0-47.0); Hemoglobin 11.6 g/dl (12.0-16.0); Mean Corpuscular Hemoglobin 29.6 pg (25.0-34.0); Mean Corpuscular Hgb Conc 33.5 g/dL (32.0-36.0); Mean Corpuscular Volume 88.3 fL (80.0-100.0); Mean Platelet Volume 10.8 fL (9.4-12.4); Platelet Count 248 K/uL (130-400); RDW Coefficient of Variation 12.6 % (11.5-14.5); RDW Standard Deviation 40.6 fL (36.4-46.3); Red Blood Count 3.92 M/uL (4.20-5.40); White Blood Count 7.22 K/ul (4.8-10.8)
[2023-04-19 07:47] LABS: BUN Creatinine Ratio 9.2 (10-20); Calcium 9.5 mg/dl (8.6-10.3); Creatinine Clr Calc Pharmacy 47.6 ml/min; Est GFR (African American) 49.9 ml/min; Potassium 4.1 mmol/L (3.5-5.1)
[2023-04-19] MEDS: MYCOPHENOLATE SODIUM 180 MG TAB PO SCH (08:07)
[2023-04-19] MEDS: TACROLIMUS 1 MG CAP PO SCH (08:07)
[2023-04-19] MEDS: amLODIPine BESYLATE 5 MG TAB PO SCH (08:07)
[2023-04-19] MEDS: LACTATED RINGER'S 1,000 ML IV SCH (08:07)
--- NOTE | 2023-04-19 08:40 | Discharge Summary ---
Date of Service April 19, 2023 Admission HPI Per Admitting Provider 27yo Female with PMH familial juvenile nephrophthisis s/p renal transplant, immunocompromised, HTN here for vomiting. Patient states on Tuesday she developed UTI symptoms saw her PCP was placed on bactrim. The next day she developed nausea had low appetite and headache. Yesterday she continued to have a headache developed vomiting, was able to take her other medications not her bactrim. She denies any fever SOB chest pain abd pain weakness fatigue, denies other changes in medication or sick contacts. Patient states she is urinating normally, no blood in urine/pain with urination/urinary frequency. In ED she received compazine. At this time nausea under control. Patient followed rifle case repairer Dr. Bess. Admission Exam Per Admitting Provider Constitutional: well developed, well nourished, cooperative and comfortable Eyes: PERRL, conjunctivae normal, anicteric sclerae ENMT: external ear and nose normal, oropharynx normal Neck: trachea midline, no thyromegaly Respiratory: normal respiratory effort, lungs clear to auscultation Cardiovascular: RRR, no murmur, no edema Gastrointestinal (Abdomen): Inspection/Auscultation: abdomen normal to inspection and + abdominal surgical scar Percussion/Palpation: abdomen soft; abdomen nontender Skin: no rashes, warm and dry Principal Diagnosis UTI w/ systemic symptoms Discharge Exam Constitutional: well appearing, no acute distress HEENT: normocephalic, no conjunctival injection CV: regular rhythm, regular rate, no murmur, no LE edema Respiratory: Clear to auscultation bilaterally. No rhonchi, wheezes, or crackles. No increased work of breathing MSK: no gross deformities noted Skin: warm, dry, no rashes Neuro: alert, oriented, no FND noted Discharge Data Allergies Allergy/AdvReac Type Severity Reaction Status Date / Time hydromorphone [From Dilaudid] Allergy Mild Rash Verified 11/30/22 13:37 house dust AdvReac Unknown Verified 11/30/22 13:37 morphine AdvReac Unknown PSYCHOSIS Verified 11/30/22 13:37 Dust Mite Extract Allergy Mild Congested Uncoded 11/30/22 13:37 Consultations 04/17/23 23:52 ED Decision to Admit Stat 04/18/23 08:49 Consult Nephrology Routine Ordered Studies 04/17/23 22:43 CT Abd and Pelvis [CT abd pelvis wo con] Stat IMPRESSION: No acute findings in the abdomen or pelvis. Hospital Course (1) Acute kidney injury superimposed on CKD: Pt is a 27 yo female with PMH familial juvenile nephrophthisis s/p renal transplant, immunocompromised, and HTN who presented with nausea and vomiting with GENESIS on CKD. ?UTI in immunocompromised patient - no leukocytosis with slight neutrophilic predominance - CTAP neg - Outpatient culture grew group b strep; inpatient cx grew contaminants/jennifer - unsure if nausea/vomiting was secondary to bactrim vs. UTI (had previously been on suppressive dose of bactrim after transplant chronically w/o issue) - d/t risk factors and ambiguous etiology, will tx like a UTI with cefdinir 300 mg BID x7 days total GENESIS on CKD - Cr peaked at 2.38 - back to baseline after fluid resuscitation - consider repeat BMP upon follow up Hx of kidney transplant - continue tacrolimus and mycophenolate HTN - continue bisoprolol, amlodipine FEN:regular Code:full VTE ppx:ambulatory Dispo:home (2) Vomiting: (3) Immunocompromised patient: (4) Familial juvenile nephrophthisis: (5) HTN (hypertension): (6) Status post kidney transplant: Total Time Total Time Spent Total Time Spent (In Minutes): I spent 25 minutes seeing the patient, reviewing data, and dictation Discharge Plan Discharge Items Patient Disposition: Home - Self-Care Reason For Visit: VOMITING Discharge Diagnosis: N/V secondary to UTI vs. bactrim reaction Activity: Per Instructions section Non-emergency contact: Primary Care Provider Call non-emergency contact if: you have any medication questions and your symptoms worsen Follow-up/Referrals: Latrice Ferrell [Primary Care Provider] - 04/25/23 7:45 am Diet: Regular Addtl Attending Provider Instructions: You were admitted to the hospital for nausea and vomiting. You were treated with an antibiotic called ceftriaxone for a presumed UTI. It isn't entirely clear if your symptoms were caused by an aggressive UTI or a reaction to bactrim. Either way, out of caution due to your immunosuppressed state, you will be treated for a presumed UTI. A discharge summary will be sent to your primary care physician to ensure continuity of care. Please bring this discharge summary with you to your next office appointment so that your provider can review it at that time. Medications: Your medication list has been reviewed and reconciled upon discharge to ensure accuracy and continuity of care. An updated list of all your medications is included with your hospital discharge paperwork. Please review this list closely and make note of any changes to your medications. - You will be discharged with the antibiotic cefdinir 300 mg twice per day for the next 7 days. This is to treat a presumed UTI. Your next dose is this evening so please sisal picker your antibiotics after you are discharged from the hospital. - Otherwise, you should continue your medications as before your hospitalization. Follow up appointments: - Make a follow up appointment with your PCP within the next week. It is very important that you follow up with them shortly after discharge from the hospital. - Make sure to keep regular follow ups with your rifle case repairer and transplant team. - Keep all of your follow up appointments as already scheduled. If you cannot make an appointment, notify your provider. CONTACT YOUR PRIMARY CARE PROVIDER if you experience any of the following: - Difficulty following your treatment plan - Difficulty taking any of your medications CALL 911 OR GO TO THE EMERGENCY DEPARTMENT if you experience any of the following: - Sudden, severe abdominal pain or nausea/vomiting - Severe chest pain or chest pain that radiates to your jaw or arm - Sudden, severe shortness of breath or difficulty breathing Pending Studies at Discharge: No Stand-Alone Forms: My [facility], Smoking Cessation Medications and DC Order Prescriptions: New cefdinir 300 mg Capsule 300 mg PO BID Qty: 13 0RF Continued bisoprolol fumarate 5 mg tablet 5 mg PO HS Qty: 90 3RF amlodipine 10 mg tablet 10 mg PO DAILY Qty: 90 3RF magnesium oxide 400 mg (241.3 mg magnesium) tablet 200 mg PO HS multivitamin tablet 1 tab PO DAILY mycophenolate sodium 180 mg tablet,delayed release (DR/EC) 360 mg PO BID triamcinolone acetonide 55 mcg aerosol,spray 1 sprays INTNAS DAILY tacrolimus 5 mg capsule See Rx Instructions .ROUTE .COMPLEX Rx Instructions: take am and pm norethindrone (contraceptive) [Lucia] 0.35 mg tablet 0.35 mg PO DAILY Qty: 28 12RF Rx Instructions: Take 1 tablet by mouth daily. clobetasol 0.05 % cream 0.05 g TOPICAL BID PRN (Reason: Other) Discontinued sulfamethoxazole-trimethoprim 800-160 mg tablet 1 tab PO BID Discharge Orders: Discharge Order (Routine); Ordered 04/19/23 Ordered By: Tamara Pantoja Admission Data Admit Date/Time: 04/18/23 00:18 Attending Provider: Smooth Davis Admit Provider: Alyssa Krishnan Primary Care Provider: Latrice Ferrell Other Providers: Emil lAonzo ; Tommie Trujillo ; Sharla Diaz Kevin C. ; Rupali Rosario Other Interventions: Discharge Summary Assessment (RN) Last Done: 04/19/23 10:53 Supervising Physician Co-Signing Physician Notes ATTESTATION I also saw the patient and completed an independent clinical history of his examination. I agree with the impression and plan in the resident documentation, and as summarized below. Patient is without complaints today she is tolerating p.o. food and fluids without nausea or vomiting. In reviewing the patient's history, she had her usual blood work and urinalysis for her transplant team at [facility]. The urinalysis was abnormal, so she had a follow-up with her PCP at which time a culture was sent and she was started on Bactrim. In retrospect, the patient reports some increased urination, but no significant symptoms. Her significant symptoms started after starting the Bactrim. Had she not had the routine blood work scheduled, she tells me this morning that she probably would not have sought medical care. EXAM 135/89, 59, 18, 36.7, 90% room air Alert and oriented. No distress appreciated. Heart regular rate and rhythm Lungs clear with normal respirations No CVA tenderness appreciated DATA Labs WBC 7.22, hemoglobin 9.6, platelet count 248 Sodium 139, potassium 4.1, BUN 15, creatinine 1.63 Micro Urine culture from 04/17/2023 demonstrates pinpoint growth Outpatient urine culture ([facility]) demonstrates low colony count of group B strep IMPRESSION & PLAN Acute kidney injury on CKD/renal transplant status/familial juvenile nephrophthisis Suspect secondary to volume depletion given GI symptoms Fairly mild urinary symptoms - outpatient urine culture showing low colony counts of group B strep Wonder if her GI symptoms were actually from the Bactrim? Okay to discharge on p.o. antibiotics She will follow-up with her transplant team with regards to repeat culture posttreatment Discussed signs and symptoms of worsening infection/asending infection Will follow up on inpatient cultures once completed Additional per resident documentation Resident Activity Tracking Resident Involvement: Resident Care Provided Care Provided: Adult [facility]
[2023-04-19] MEDS ORDERED: CEFDINIR 300 MG CAP PO SCH (09:00)
--- NOTE | 2023-04-19 10:29 | Nephrology Progress Note ---
Date of Service April 19, 2023 Assessment & Plan (1) Acute kidney injury superimposed on CKD: (2) Vomiting: (3) Status post kidney transplant: Plan 27-year-old female with history of renal transplant and recurrent urinary tract infection admitted after an episode of recent urinary tract infection and outpatient antibiotic then developed acute GI symptoms with nausea vomiting and headache. Started on Rocephin and IV fluid. On admission noted to have GENESIS with creatinine 2.4 while baseline creatinine is 1.7-1.8. GENESIS resolved, renal function back to baseline, electrolyte acceptable. Overall doing well and asymptomatic. -- discontinue IV fluid, encourage p.o. intake. -- tacrolimus 5 mg q12h and Myfortic acid bid. will follow while inpatient. Admission and Anticipated Discharge Date Admission Date: April 18, 2023 Subjective He was seen this morning overall she feels well, having normal p.o. intake, denies any nausea, vomiting, fever, chills, dysuria or increased frequency of urination. Pressure acceptable. Volume status acceptable. Renal function continue to improve, creatinine down to 1.6, baseline, electrolyte acceptable. Review of Systems Review of Systems: Detail ROS was unremarkable except mentioned above. Physical Exam Constitutional: WD/WN, vitals as above no acute distress Eyes: + anicteric sclerae Neck: normal visual inspection Respiratory: no respiratory distress Auscultation: lungs clear to auscultation bilaterally Cardiovascular: RRR, no murmur, no edema Skin: no rashes, warm and dry Neurologic: no focal motor deficits Psychiatric: Orientation: alert and oriented x 3 Affect: euthymic affect Results & Data Vital Signs (Past 12 Hours) Vital Signs Temp Pulse Pulse Pulse Resp BP Pulse Ox 04/19/23 07:40 60 04/19/23 06:06 36.7 C 59 L 18 135/89 99 04/19/23 03:26 36.5 C 78 18 119/82 98 04/19/23 00:00 69 04/18/23 22:44 36.8 C 57 L 18 151/99 H 96 O2 Del Method 04/19/23 07:40 04/19/23 06:06 Room Air 04/19/23 03:26 Room Air 04/19/23 00:00 04/18/23 22:44 Room Air PG Care Time/CCT Total # of Minutes Spent Total Time Spent with Patient: Total time spent is greater than 50% in coordination of care (as documented) at patient's floor/unit and/or counseling patient: Coding Level of Care Code 08900 SUB INP/OBS CARE 2/35MIN Diagnoses Acute kidney injury superimposed on CKD N17.9; N18.9 Vomiting R11.10 Status post kidney transplant Z94.0
== END 2023-04-19 11:52 | disposition home or self-care (01) | DRG 871 ==
LOC: ED 20:16 → SUATTDRO 04-18 00:18 → 2N 04-18 00:18 → INTOOBSV 04-18 00:18 → 2N 04-18 01:18